=== PATIENT | female | born 1935 | race Caucasian/White ===

== ENCOUNTER 2016-12-25 14:16 | Emergency (ER) | payer MEDICARE, OTHER ==
[~2016-12-25] VITALS: Ht 167.6 cm; Wt 54.4 kg
[~2016-12-25 14:16] MED LIST: IPRA14.7 IH; LISI10TA5 PO; NITR0.4T6 SL; PRED10TA PO
[2016-12-25] MEDS ORDERED: ASPIRIN 325 MG TABLET ONE (14:47)
[2016-12-25] MEDS ORDERED: predniSONE 20 MG TABLET ONE (14:47)
[2016-12-25] MEDS ORDERED: predniSONE 20 MG TABLET PO ONE (15:00)
[2016-12-25] MEDS ORDERED: ASPIRIN 325 MG TABLET PO ONE (15:00)
[2016-12-25 15:02] LABS: BASOPHILS % (AUTO) 0.9 % (0.0-2.0); DIFF TOTAL % 100 %; EOSINOPHILS # (AUTO) 0.3 /CMM (0.0-0.7); EOSINOPHILS % (AUTO) 6.2 % (0.0-6.0); HEMATOCRIT 39 % (33-45); LYMPHOCYTES # (AUTO) 1.3 /CMM (0.8-4.8); LYMPHOCYTES % (AUTO) 25.4 % (20.0-44.0); MEAN CORPUSCULAR HEMOGLOBIN 30 PG (26.0-33.0); MEAN CORPUSCULAR HGB CONC 34 g/dl (31.0-36.0); MEAN CORPUSCULAR VOLUME 90 fL (82-100); MONOCYTES # (AUTO) 0.3 /CMM (0.1-1.30); MONOCYTES % (AUTO) 5.7 % (2.0-12.0); NEUTROPHILS # (AUTO) 3.3 /CMM (1.8-8.9); NEUTROPHILS % (AUTO) 61.8 % (43.0-81.0); PLATELET COUNT (AUTO) 210 /CMM (150-450); WHITE BLOOD COUNT (AUTO) 5.3 K/uL (4.3-11.0)
[2016-12-25 15:10] LABS: ANION GAP 9 (5-14); CALCIUM, SERUM 8.8 mg/dL (8.5-10.1); CARBON DIOXIDE 31 mmol/L (21-32); CHLORIDE 103 mmol/L (98-107); CREATININE 0.8 mg/dL (0.6-1.3); GLUCOSE 121 mg/dL (74-106); POTASSIUM 3.7 mmol/L (3.5-5.1); SODIUM SERUM 139 mmol/L (136-145); UREA NITROGEN, BLOOD 12 mg/dL (7-18)
[2016-12-25 15:17] LABS: TROPONIN I < 0.017 ng/mL (0.00-0.056)
[2016-12-25 15:35] LABS: INR 0.99 (0.87-1.13); PROTHROMBIN TIME 10.7 SECS (9.5-12.7)
[2016-12-25 15:57] VITALS: BP 151/78
== END 2016-12-25 15:59 | disposition home or self-care (01) ==
LOC: ER 14:18
DX: J44.1 Chronic obstructive pulmonary disease with (acute) exacerbation (principal); I10 Essential (primary) hypertension; Z88.2 Allergy status to sulfonamides; Z88.0 Allergy status to penicillin; Z88.8 Allergy status to other drugs, medicaments and biological substances
CPT/HCPCS: 36415; 71010; 80048; 84484; 85025; 85730; 93005; 99285; A4606; J7512; Z7610

== ENCOUNTER 2017-01-11 20:22 | Emergency (ER) | payer MEDICARE, OTHER ==
[~2017-01-11] VITALS: Ht 162.6 cm; Wt 63.5 kg
[2017-01-11 21:18] VITALS: BP 138/94
== END 2017-01-11 21:35 | disposition home or self-care (01) ==
LOC: ER 20:22
DX: S06.0X9A Concussion with loss of consciousness of unspecified duration, initial encounter (principal); I10 Essential (primary) hypertension; J44.9 Chronic obstructive pulmonary disease, unspecified; Z88.8 Allergy status to other drugs, medicaments and biological substances; Z88.2 Allergy status to sulfonamides; Z88.0 Allergy status to penicillin; Z88.6 Allergy status to analgesic agent; W22.8XXA Striking against or struck by other objects, initial encounter; Y93.89 Activity, other specified; Y92.090 Kitchen in other non-institutional residence as the place of occurrence of the external cause; Y99.9 Unspecified external cause status
CPT/HCPCS: 99281; A4606; Z7502; Z7610

== ENCOUNTER 2017-01-15 18:29 | Emergency (ER) | payer MEDICARE, OTHER ==
[~2017-01-15] VITALS: Ht 160 cm; Wt 63.5 kg
[2017-01-15 19:22] LABS: BASOPHILS % (AUTO) 0.5 % (0.0-2.0); DIFF TOTAL % 100 %; EOSINOPHILS # (AUTO) 0.4 /CMM (0.0-0.7); HEMATOCRIT 41 % (33-45); HEMOGLOBIN 13.7 g/dL (11.5-14.8); LYMPHOCYTES # (AUTO) 1.6 /CMM (0.8-4.8); LYMPHOCYTES % (AUTO) 28.5 % (20.0-44.0); MEAN CORPUSCULAR HEMOGLOBIN 30 PG (26.0-33.0); MEAN CORPUSCULAR HGB CONC 33 g/dl (31.0-36.0); MEAN CORPUSCULAR VOLUME 91 fL (82-100); MONOCYTES # (AUTO) 0.4 /CMM (0.1-1.30); MONOCYTES % (AUTO) 7.7 % (2.0-12.0); NEUTROPHILS # (AUTO) 3.1 /CMM (1.8-8.9); NEUTROPHILS % (AUTO) 55.3 % (43.0-81.0); PLATELET COUNT (AUTO) 199 /CMM (150-450); RED BLOOD CELL COUNT(AUTO) 4.55 MIL/uL (4.0-5.2); WHITE BLOOD COUNT (AUTO) 5.5 K/uL (4.3-11.0)
[2017-01-15 19:30] LABS: ANION GAP 12 (5-14); CARBON DIOXIDE 29 mmol/L (21-32); CHLORIDE 102 mmol/L (98-107); CREATININE 1.1 mg/dL (0.6-1.3); POTASSIUM 3.7 mmol/L (3.5-5.1); SODIUM SERUM 139 mmol/L (136-145); UREA NITROGEN, BLOOD 17 mg/dL (7-18)
[2017-01-15] MEDS ORDERED: ALBUTEROL FS 2.5 MG/0.5 ML VIAL.NEB NEB ONE (19:30)
[2017-01-15 19:34] LABS: INR 0.99 (0.87-1.13); PROTHROMBIN TIME 10.4 SECS (9.5-12.7)
[2017-01-15 19:38] LABS: TROPONIN I < 0.017 ng/mL (0.00-0.056)
[2017-01-15 19:42] LABS: ALANINE AMINOTRANSFERASE 24 U/L (12-78); ALBUMIN 3.8 g/dL (3.4-5.0); ASPARTATE AMINOTRANSFERASE 26 U/L (15-37); BILIRUBIN,DIRECT 0.1 mg/dL (0.0-0.2); BILIRUBIN,TOTAL 0.5 mg/dL (0.2-1.0); INDIRECT BILIRUBIN 0.4 mg/dL (0.0-1.1); TOTAL PROTEIN, SERUM 7.6 g/dL (6.4-8.2)
[2017-01-15 20:00] LABS: GLUCOSE 112 mg/dL (74-106)
[2017-01-15 21:52] VITALS: BP 116/68
== END 2017-01-15 21:52 | disposition home or self-care (01) ==
LOC: ER 18:32
DX: R07.89 Other chest pain (principal); J44.1 Chronic obstructive pulmonary disease with (acute) exacerbation; I10 Essential (primary) hypertension; Z88.0 Allergy status to penicillin; Z88.2 Allergy status to sulfonamides; Z88.8 Allergy status to other drugs, medicaments and biological substances
CPT/HCPCS: 36415; 71010; 80048; 80076; 83880; 84484; 85025; 85730; 93005; 94640; 99285; A4606; Z7610

== ENCOUNTER 2017-03-26 09:51 | Emergency (ER) | payer MEDICARE, OTHER ==
[~2017-03-26] VITALS: Ht 165.1 cm; Wt 62.6 kg
[2017-03-26 09:57] VITALS: BP 155/76
[2017-03-26 10:29] LABS: BILIRUBIN,URINE NEGATIVE (NEGATIVE); BLOOD, URINE 3+ Ery/uL (NEGATIVE); COLOR,URINE AMBER (YELLOW); KETONES,URINE 1+ (NEGATIVE); LEUKOCYTE ESTERASE ,URINE 2+ (NEGATIVE); NITRITE, URINE POSITIVE (NEGATIVE); PH,URINE 6.5 (5.0-8.0); PROTEIN,URINE 3+ mg/dl (NEGATIVE); UGLUCOSE NEGATIVE (NEGATIVE)
[2017-03-26 10:33] LABS: APPEARANCE,URINE CLOUDY (CLEAR)
[2017-03-26 10:36] LABS: ADD URINE CULTURE YES; BACTERIA,URINE Few /HPF (None Seen); RBC,URINE TOO NUMEROUS TO COUN /HPF (0-2); SQUAMOUS EPITHELIAL CELL,UR Rare /HPF (None Seen)
[2017-03-26 10:37] LABS: WBC,URINE 21-50 /HPF (0-3)
[2017-03-26] MEDS ORDERED: PHENAZOPYRIDINE HCL 200 MG TABLET ONE (10:51)
[2017-03-26] MEDS ORDERED: CIPROFLOXACIN HCL 500 MG TABLET ONE (10:51)
[2017-03-26] MEDS ORDERED: CIPROFLOXACIN HCL 250 MG TABLET PO ONE (11:00)
[2017-03-26] MEDS ORDERED: PHENAZOPYRIDINE HCL 200 MG TABLET PO ONE (11:00)
== END 2017-03-26 11:03 | disposition home or self-care (01) ==
LOC: ER 10:00
DX: N39.0 Urinary tract infection, site not specified (principal); J44.1 Chronic obstructive pulmonary disease with (acute) exacerbation; I10 Essential (primary) hypertension; Z90.49 Acquired absence of other specified parts of digestive tract; Z90.710 Acquired absence of both cervix and uterus; Z98.890 Other specified postprocedural states; Z88.2 Allergy status to sulfonamides; Z88.1 Allergy status to other antibiotic agents; Z88.0 Allergy status to penicillin; Z88.8 Allergy status to other drugs, medicaments and biological substances
CPT/HCPCS: 81000-TC; 87086-TC; A4606; Z7610

== ENCOUNTER 2018-09-18 19:21 | Emergency (ER) | payer MEDICARE, OTHER ==
[~2018-09-18] VITALS: Ht 162.6 cm; Wt 63.5 kg
[~2018-09-18 19:21] MED LIST changes: +NITR0.4T48 SL; -NITR0.4T6 SL
[2018-09-18 19:37] VITALS: BP 131/85
--- NOTE | 2018-09-18 21:37 | NUR ---
CALLED PT IN [place] TO BRING TO ROOM. NO ONE RESPONDED.
== END 2018-09-18 21:38 | disposition left against medical advice (07) ==
LOC: ER 19:23
DX: Z53.21 Procedure and treatment not carried out due to patient leaving prior to being seen by health care provider (principal); J44.9 Chronic obstructive pulmonary disease, unspecified; N39.0 Urinary tract infection, site not specified; I10 Essential (primary) hypertension; Z98.890 Other specified postprocedural states; Z90.49 Acquired absence of other specified parts of digestive tract; Z96.612 Presence of left artificial shoulder joint; Z90.710 Acquired absence of both cervix and uterus
CPT/HCPCS: A4606; Z7610

== ENCOUNTER 2019-02-05 22:55 | Inpatient (IN) | payer MEDICARE, OTHER ==
[~2019-02-05] VITALS: Ht 165.1 cm; Wt 92.7 kg
--- NOTE | 2019-02-05 23:05 | NUR ---
PT [id number] C/O "SEVERE RESP DISTRESS 60% RA, RECENT PNEUMONIA" CPAP, +SOB +ACUTE DISTRESS. PT AOX0. NAD NOTED. RESP EVEN AND UNLABORED. PT ON MONITOR IN BED 5. WILL CONTINUE TO MONITOR.
--- NOTE | 2019-02-05 23:09 | NUR ---
CALLED NURSING SHIP'S OFFICER FOR ICU BED
--- NOTE | 2019-02-05 23:10 | NUR ---
2310 CPR STARTED WITH CONTINUOUS BAGGING 2311 0.5MG ATROPINE GIVEN IV RAC 18G 2312 1MG EPINEPHRINE GIVEN IV RAC 18G 2312 HOLD COMPRESSIONS, CHECK PULSE, HR 55, BP 58/18 2312 RESUME CPR 2313 HOLD COMPRESSIONS, CHECK PULSE 2313 RESUME CPR 2314 SHOCK AT 120J BY DR OSORIO. CPR RESUMED 2314 HOLD COMPRESSIONS, CHECK PULSE 2315 PT IN A-FIB 2315 RESUME CPR 2316 1MG EPI AND 0.5MG ATROPINE GIVEN IV RAC 18G 2316 HOLD COMPRESSIONS, HR 106, BP 168/123, PT IN A-FIB. CODE ENDED.
[2019-02-05] MEDS ORDERED: DOPamine 400MG/D5W 250ML RTU 250 ML IV ONE (23:17)
[2019-02-05] MEDS ORDERED: PROPOFOL 100 ML IV ONE (23:20)
--- NOTE | 2019-02-05 23:22 | NUR ---
DOPAMINE DRIP AT 5MCG/KG PER MD ORDER.
[2019-02-05] MEDS ORDERED: DOPamine 400 MG/D5W 250 ML RTU PIGGYBACK IV ONE (23:30)
[2019-02-05] MEDS ORDERED: ETOMIDATE 2 MG/ML VIAL IV ONE (23:30)
[2019-02-05] MEDS ORDERED: SUCCINYLCHOLINE CHLORIDE 20 MG/ML VIAL IV ONE (23:30)
[2019-02-05] MEDS ORDERED: IV NS 0.9% 1,000 ML BAG IV ONE (23:30)
[2019-02-05] MEDS ORDERED: CEFTRIAXONE 1GM BAG (ER ONLY) 50 ML IV ONE ×2 (23:30→23:53)
[2019-02-05 23:32] VITALS: BP 114/75
--- NOTE | 2019-02-05 23:34 | NUR ---
RT CALLED TO PT BEDSIDE FOR INTUBATION. PT ARRIVED VIA FIRE RESCUE VENTILATED VIA AMBU BAG WITH DECREASED SPO2 READING. PT INTUBATED WITH 7.5 ETT AT 21CM AT THE LIP. PT PLACED ON VENT WITH SETTINGS CHARTED. PT BECAME PULSELESS AND CPR WITH AMBU BAG VENTILATION WAS INITIATED. PT PLACED BACK ON VENT WITH RETURN OF SPONTANEOUS CIRCULATION. ETT TUBE SECURE VIA ANCHORFAST. AIRWAY PATENT. PT UNRESPONSIVE. SUCTIONED A MODERATE AMOUNT OF THICK BORRERO SECRETIONS. AMBU BAG AT BEDSIDE ALARMS SET AND AUDIBLE. VENT PLUGGED INTO RED OUTLET. DISCONNECT ALARMS CHECKED. Addendum: 02/05/19 at 2341 by JOSH BEVERLY RT Amended: Links added.
--- NOTE | 2019-02-05 23:35 | NUR ---
DOPAMINE DRIP AT 10MCG/KG PER MD ORDER.
--- NOTE | 2019-02-05 23:36 | NUR ---
OG TUBE INSERTED.
--- NOTE | 2019-02-05 23:44 | NUR ---
2344 ATROPINE 1MG 2346 EPI 1.0 MG 2348 PACING 2350 LEVOPHED DRIP 15MCG/MIN 2351 PACING OFF 2352 EPI 1.0 MG 2355 ATROPINE 1MG
[2019-02-05] MEDS ORDERED: NOREPINEPHRINE 4 MG/4 ML AMPUL IV ONE (23:46)
[2019-02-05] MEDS ORDERED: ATROPINE SULFATE 1 MG/10 ML DISP.SYRIN ONE (23:57)
[2019-02-06] VITALS (97 sets, daily range): BP systolic 56–163; BP diastolic 35–119
[2019-02-06 00:11] LABS: ABG BASE EXCESS 2.9 mmol/L; ABG OXYGEN SATURATION 98.9 % (92.0-98.5); ABG PCO2 69.6 mmHg (35.0-45.0); ABG PH 7.266 (7.350-7.450); ABG PO2 370.2 mmHg (75.0-100.0); AaDO2 273.2 mmHg; COHb 0.3 % (0.5-1.5); MetHb 0.5 % (0.0-1.5); O2Hb 98.1 % (94.0-97.0); PEEP,BG 0 cm H2O; SITE, ABG Right Radial; VT, ABG 450 mL
[2019-02-06 00:17] LABS: APPEARANCE,URINE Clear (CLEAR); BILIRUBIN,URINE Negative (NEGATIVE); BLOOD, URINE Trace-intact Ery/uL (NEGATIVE); COLOR,URINE Yellow (YELLOW); KETONES,URINE Negative (NEGATIVE); LEUKOCYTE ESTERASE ,URINE Negative (NEGATIVE); NITRITE, URINE Negative (NEGATIVE); PROTEIN,URINE Trace mg/dl (NEGATIVE); UGLUCOSE Negative (NEGATIVE); UROBILINOGEN,URINE 0.2 EU/dL (0.2)
[2019-02-06 00:20] LABS: BASOPHILS # (AUTO) 0.4 /CMM (0.0-0.2); BASOPHILS % (AUTO) 2.7 % (0.0-2.0); EOSINOPHILS % (AUTO) 0.8 % (0.0-6.0); HEMATOCRIT 26 % (33-45); HEMOGLOBIN 8.4 g/dL (11.5-14.8); LYMPHOCYTES # (AUTO) 0.8 /CMM (0.8-4.8); LYMPHOCYTES % (AUTO) 5.9 % (20.0-44.0); MEAN CORPUSCULAR HGB CONC 32 g/dl (31.0-36.0); MEAN CORPUSCULAR VOLUME 94 fL (82-100); MONOCYTES # (AUTO) 0.5 /CMM (0.1-1.30); MONOCYTES % (AUTO) 3.4 % (2.0-12.0); NEUTROPHILS # (AUTO) 12.2 /CMM (1.8-8.9); NEUTROPHILS % (AUTO) 87.2 % (43.0-81.0); PLATELET COUNT (AUTO) 241 /CMM (150-450); RED BLOOD CELL COUNT(AUTO) 2.81 MIL/uL (4.0-5.2)
[2019-02-06 00:28] LABS: CALCIUM, SERUM 7.6 mg/dL (8.5-10.1); CARBON DIOXIDE 35 mmol/L (21-32); CHLORIDE 98 mmol/L (98-107); CREATININE 0.9 mg/dL (0.6-1.3); GLUCOSE 225 mg/dL (74-106); POTASSIUM 4.5 mmol/L (3.5-5.1); SODIUM SERUM 138 mmol/L (136-145); UREA NITROGEN, BLOOD 8 mg/dL (7-18)
[2019-02-06 00:44] LABS: BACTERIA,URINE Few /HPF (None Seen); RBC,URINE 0-2 /HPF (0-2); SQUAMOUS EPITHELIAL CELL,UR Few /HPF (None Seen)
--- NOTE | 2019-02-06 00:44 | NUR ---
LEVOPHED 30MCG PER MD ORDER
[2019-02-06 00:45] LABS: ALANINE AMINOTRANSFERASE 77 U/L (12-78); ALKALINE PHOSPHATASE 101 U/L (46-116); ASPARTATE AMINOTRANSFERASE 206 U/L (15-37); B-TYPE NATRIURETIC PEPTIDE 6354 PG/ML (0-125); BILIRUBIN,DIRECT 0.2 mg/dL (0.0-0.2); BILIRUBIN,TOTAL 0.3 mg/dL (0.2-1.0); TOTAL PROTEIN, SERUM 4.9 g/dL (6.4-8.2)
[2019-02-06 00:46] LABS: ALBUMIN 1.2 g/dL (3.4-5.0)
[2019-02-06] MEDS ORDERED: PHENYLEPHRINE 10 MG/ML VIAL ONE ×2 (00:50→02:30)
--- NOTE | 2019-02-06 01:00 | NUR ---
DOPAMINE DRIP AT 20MCG/KG PER MD ORDER.
--- NOTE | 2019-02-06 01:02 | NUR ---
VERBAL ORDER FROM DR OSORIO FOR NEOSYNEPHRINE DRIP STARTED AT 300MCG/MIN. TITRATE DOWN TOLERATED.
--- NOTE | 2019-02-06 01:04 | NUR ---
DR. OSORIO AT BEDSIDE FOR CENTRAL LINE
--- NOTE | 2019-02-06 01:15 | NUR ---
REPORT GIVEN TO CHARLES RN FOR ADMISSION
[2019-02-06] MEDS ORDERED: ONDANSETRON HCL/PF 4 MG/2 ML VIAL IVP PRN (01:30)
[2019-02-06] MEDS ORDERED: ZOLPIDEM TARTRATE 5 MG TABLET PO PRN (01:30)
[2019-02-06] MEDS ORDERED: IPRATROPIUM NEB FS 0.5 MG/2.5 ML AMPUL.NEB NEB PRN (01:30)
[2019-02-06] MEDS ORDERED: ALBUTEROL FS 2.5 MG/0.5 ML VIAL.NEB NEB PRN (01:30)
[2019-02-06] MEDS ORDERED: VANCOMYCIN 1 GM in IV NS 0.9% 250 ML IV SCH ×2 (01:30→02:00)
[2019-02-06] MEDS ORDERED: LEVOFLOXACIN 750 MG /D5W 150ML 750 MG in PREMIX 1 EA IV SCH (01:30)
[2019-02-06] MEDS ORDERED: methylPREDNISolone SOD SUCC 125 MG/2ML VIAL IV SCH (01:30)
[2019-02-06] MEDS ORDERED: PHENYLEPHRINE 20 MG in IV D5W 250 ML IV PRN ×3 (01:30→02:30)
[2019-02-06] MEDS ORDERED: ACETAMINOPHEN 325 MG TABLET PO PRN (01:30)
[2019-02-06] MEDS ORDERED: VASOPRESSIN INJ 50 UNIT in IV D5W 497.5 ML IV PRN (01:30)
[2019-02-06] MEDS ORDERED: MAGNESIUM HYDROXIDE 30 ML UDC PO PRN (01:30)
--- NOTE | 2019-02-06 01:35 | NUR ---
MARKET RESEARCHERBODY COMPONENT ENGINEER NOTES RECEIVED PATIENT FROM ER VIA [facility]. PATIENT INTUBATED, ON VENTILATOR, SETTINGS: AC 24, TV 450, FIO2 100%, NO PEEP. DIFFICULT TO OBTAIN SPO2 DUE TO POOR PERFUSION, WARM BLANKET APPLIED TO SITE WHERE PULSE OX IS CONNECTED. PROFESSIONAL WRESTLER READS SINUS TACHYCARDIA, HR = 120 BPM AT THIS TIME. RIGHT FEMORAL TLC PRESENT, INFUSING LEVOPHED @ 40MCG/MIN, NEOSYNEPHRINE @ 300 MCG/MIN, AND DOPAMINE @ 20 MCG. WILL TITRATE ABLE. FLORES CATHETER DRAINING CLEAR YELLOW URINE VIA GRAVITY. ALL SKIN ISSUES PHOTOGRAPHED AND DOCUMENTED PER PROTOCOL. WILL CONTINUE CLOSE MONITORING
[2019-02-06] MEDS: BLOOD SUGAR DIAGNOSTIC 1 EACH STRIP IN SCH ×6 (01:52→20:37)
[2019-02-06] MEDS: IV NS 0.9% 1,000 ML IV PRN ×2 (02:01→13:28)
--- NOTE | 2019-02-06 02:30 | NUR ---
SYSTEM SUPPORT TECHNICIAN NOTES 0230 RECEIVED CALL FROM RADIOLOGIST DR RAMOS REGARDING FINDINGS ON CXR. PER DR RAMOS, NEW LEFT TENSION PNEUMOTHORAX 20-30%. MIGUE LABORER STORES. PER MIGUE, PREPARE FOR CHEST TUBE INSERTION BY ER , DR OSORIO. 0250 DR OSORIO AT BEDSIDE FOR CHEST TUBE INSERTION. LEFT ANTERIOR CHEST WALL CHEST TUBE INSERTED BY , STAT CXR OBTAINED, AWAITING RESULT. CHEST TUBE CONNECTED TO CONTINUOUS -20CM H20 SUCTION, WITH SEROSANGUINOUS OUTPUT.
[2019-02-06] MEDS ORDERED: ALBUMIN 25% 100 ML IV ONE ×2 (02:31→04:59)
[2019-02-06] MEDS ORDERED: VANCOMYCIN 1 GM VIAL ONE (02:33)
[2019-02-06 02:35] LABS: ABG BASE EXCESS 4.8 mmol/L; ABG OXYGEN SATURATION 96.5 % (92.0-98.5); ABG PCO2 51.3 mmHg (35.0-45.0); ABG PH 7.393 (7.350-7.450); ABG PO2 100.5 mmHg (75.0-100.0); AaDO2 561.2 mmHg; COHb 0.3 % (0.5-1.5); MetHb 0.5 % (0.0-1.5); O2Hb 95.7 % (94.0-97.0); SITE, ABG Right Radial
[2019-02-06] MEDS ORDERED: METRONIDAZOLE 500MG/ NS 100ML 100 ML IV ONE (02:35)
--- NOTE | 2019-02-06 02:36 | NUR ---
ABG DONE. NOTIFIED CHARLES RN WITH THE RESULT.
[2019-02-06] MEDS: METRONIDAZOLE 500MG/ NS 100ML 500 MG in PREMIX 1 EA IV SCH ×5 (02:47→20:37)
[2019-02-06] MEDS ORDERED: LIDOCAINE 100MG/5ML DISP SYR ONE (02:58)
[2019-02-06] MEDS ORDERED: LIDOCAINE 2%-EPI 1:100,000 30 ML VIAL ONE (02:58)
--- NOTE | 2019-02-06 03:15 | NUR ---
ETHICS MANAGER NOTES - DOPAMINE DRIP UNABLE TO CHART DOPAMINE IN IV SPREADSHEET. TITRATED DOWN EVERY 15 MINUTES BY 5MCG UNTIL TITRATED OFF @ 0315. BP 149/84. HR 105
[2019-02-06] MEDS: NOREPINEPHRINE 8 MG in IV D5W 500 ML IV PRN (03:16)
--- NOTE | 2019-02-06 03:30 | NUR ---
NEONATAL INTENSIVE CARE UNIT NURSE NOTES - NEOSYNEPHRINE DRIP UNABLE TO CHART NEOSYNEPHRINE DRIP IN IV SPREADSHEET. TITRATED DOWN EVERY 15 MINUTES BY 50MCG UNTIL TITRATED OFF @ 0330. BP 127/81, HR 88BPM
[2019-02-06] MEDS: ALBUMIN 25% 25 GM in PREMIX 1 EA IV SCH ×3 (03:50→10:42)
[2019-02-06] MEDS ORDERED: NOREPINEPHRINE 4 MG/4 ML AMPUL IV ONE (04:12)
--- NOTE | 2019-02-06 04:36 | NUR ---
TROLLEY CLEANER NOTES FLAGYL IV FOR 0500 NON-ADMINISTERED, LAST GIVEN @ 0247. CALLED PHARMACY, RECEIVED INSTRUCTION TO NON ADMINISTER NEXT DOSE DUE TO CLOSE PROXIMITY ADMINISTRATION TIME WILL DEFAULT BACK TO EXISTING SCHEDULED ADMINISTRATION TIME
[2019-02-06] MEDS: INSULIN REGULAR, HUMAN 100 UNIT/ML 3 ML VIAL SQ PRN ×4 (05:04→17:41)
[2019-02-06 05:14] LABS: BASOPHILS % (AUTO) 0.1 % (0.0-2.0); HEMATOCRIT 28 % (33-45); HEMOGLOBIN 9.1 g/dL (11.5-14.8); LYMPHOCYTES # (AUTO) 0.2 /CMM (0.8-4.8); LYMPHOCYTES % (AUTO) 1.5 % (20.0-44.0); MEAN CORPUSCULAR HGB CONC 33 g/dl (31.0-36.0); MEAN CORPUSCULAR VOLUME 92 fL (82-100); MONOCYTES # (AUTO) 0.8 /CMM (0.1-1.30); MONOCYTES % (AUTO) 5.6 % (2.0-12.0); NEUTROPHILS % (AUTO) 92.8 % (43.0-81.0); PLATELET COUNT (AUTO) 310 /CMM (150-450); RED BLOOD CELL COUNT(AUTO) 3.05 MIL/uL (4.0-5.2); WHITE BLOOD COUNT (AUTO) 15.1 K/uL (4.3-11.0)
[2019-02-06 05:18] LABS: CHOLESTEROL 75 mg/dL (<200); HDL CHOLESTEROL 29 mg/dL (40-60); LDL 40 mg/dL (0-99); TRIGLYCERIDES 70 mg/dL (30-150)
[2019-02-06 05:19] LABS: CALCIUM, SERUM 7.9 mg/dL (8.5-10.1); GLUCOSE 253 mg/dL (74-106); MAGNESIUM 1.4 mg/dL (1.8-2.4); PHOSPHORUS 3.7 mg/dL (2.5-4.9); UREA NITROGEN, BLOOD 11 mg/dL (7-18)
[2019-02-06 05:25] LABS: CARBON DIOXIDE 34 mmol/L (21-32); CHLORIDE 93 mmol/L (98-107); POTASSIUM 5.3 mmol/L (3.5-5.1); SODIUM SERUM 134 mmol/L (136-145)
[2019-02-06] MEDS ORDERED: PIPERACILLIN /TAZOBACTAM 3.375 G in IV D5W 50 ML IV SCH (06:00)
--- NOTE | 2019-02-06 07:00 | NUR ---
CHOIRMASTER NOTES PATIENT RESTING IN BED, NO FACIAL GRIMACE NOTED, REACTIVE TO PAINFUL STIMULI. CONTINUES ON LEVOPHED DRIP, CURRENTLY AT 14 MCG/MIN, NEOSYNEPHRINE AND DOPAMINE DRIPS TITRATED OFF SINCE 329. LEFT CHEST TUBE PATENT AND INTACT @ -20CM H20 SUCTION, TOTAL OF 300ML SEROSANGUINOUS FLUID OUTPUT. 0600 DOSE OF ALBUMIN NOT YET ADMINISTERED DUE TO NO SUPPLY. WILL CALL PHARMACY TO DELIVER. WILL ENDORSE CARE TO THE DAY SHIFT NURSE FOR CONTINUITY OF CARE
[2019-02-06] MEDS ORDERED: FEE PK DOSING 1 MIN EA MC ONE (07:43)
--- NOTE | 2019-02-06 08:00 | NUR ---
Pt seen & examined by Dr. Coyle w/ orders made & carried out.
[2019-02-06] MEDS ORDERED: ATROPINE SULFATE 1 MG/10 ML DISP.SYRIN IV ONE ×2 (08:06→08:10)
[2019-02-06] MEDS ORDERED: SUCCINYLCHOLINE CHLORIDE 20 MG/ML VIAL IV ONE (08:06)
[2019-02-06] MEDS ORDERED: SODIUM BICARBONATE SYR 50 MEQ/50 ML DISP.SYRIN IV ONE (08:10)
[2019-02-06] MEDS ORDERED: EPINEPHRINE (1:10,000) SYRINGE 1 MG/10 ML DISP.SYRIN IVP ONE (08:10)
--- NOTE | 2019-02-06 09:15 | NUR ---
Pt seen & examined by Dr. Clarke w/ orders made & carried out. 1005H ABG seen by w/ orders for vent changes RR 12, TV 450, FiO2 50%
[2019-02-06 09:23] LABS: THYROID STIMULATING HORMONE 4.273 uIU/mL (0.358-3.74)
[2019-02-06] MEDS ORDERED: ALBUTEROL HALF STRENGTH 1.25 MG/3 ML VIAL.NEB NEB PRN ×2 (10:00→14:00)
[2019-02-06 10:03] LABS: ABG OXYGEN SATURATION 99.1 % (92.0-98.5); ABG PCO2 28.8 mmHg (35.0-45.0); ABG PH 7.688 (7.350-7.450); ABG PO2 231.2 mmHg (75.0-100.0); COHb 0.3 % (0.5-1.5); MetHb 0.4 % (0.0-1.5); O2Hb 98.4 % (94.0-97.0); SITE, ABG Right Radial; VT, ABG 450 mL
[2019-02-06] MEDS: HYDROCORTISONE SOD SUCCINATE 100 MG/2 ML VIAL IV SCH ×3 (10:09→17:35)
[2019-02-06] MEDS: Magnesium 1GM/D5W 100ML PREMIX 100 ML IV SCH ×2 (10:09→11:23)
--- NOTE | 2019-02-06 10:16 | NUR ---
PINK ALERTS ON EMAR REMOVED FOR PT'S SAFETY. MEDS NON ADMINISTERED.
[2019-02-06] MEDS: CEFEPIME 2 GM in IV D5W 100 ML IV SCH ×2 (10:42→22:05)
--- NOTE | 2019-02-06 11:25 | NUR ---
Pt seen & examined by Dr. Griffin w/ orders to start pt on Lovenox 40 mg SQ daily.
--- NOTE | 2019-02-06 12:00 | NUR ---
1200H Pt seen & examined by Dr. Cade.
[2019-02-06] MEDS: ENOXAPARIN SODIUM 40 MG/0.4 ML DISP.SYRIN SQ SCH (13:20)
[2019-02-06] MEDS: FLUDROCORTISONE 0.1 MG TABLET NG SCH ×3 (13:20→23:45)
[2019-02-06] MEDS: IPRATROPIUM NEB FS 0.5 MG/2.5 ML AMPUL.NEB NEB SCH ×4 (13:53→23:48)
--- NOTE | 2019-02-06 19:00 | NUR ---
RN CLOSING NOTES: No significant changes noted w/in shift - pt is A/O x 1. Pt tolerated current MV settings via ETT, sating at 98%. On telemonitor, remains SR. IV line access kept patent & intact w/ NS 150 cc/hr infusing well. Pt off pressors. OGT kept patent & intact, kept NPO except meds. FC kept patent & intact draining to BSB w/ yellowish UOP. Kept on B soft wrist restraints for pt's safety. L CT in place, level 480mL, no bubbling noted w/in shift, serosanguineous output (per Dr. Clarke to continue scheduled Lovenox). Safety precautions kept in place at all times w/ bed in lowest & locked position. Endorsed to PM RN for SHRUTHI. Faxed request to obtain medical records from [facility] as ordered.
[2019-02-06] MEDS: VANCOMYCIN 1 GM in IV D5W 250 ML IV SCH (19:48)
--- NOTE | 2019-02-06 20:00 | NUR ---
HOSE SUSPENDER CUTTER - NOTES - PATIENT AWAKE ALERT FOLLOWING COMMANDS. LEFT CHEST TUBE PATENT AND INTACT @ -20CM H20 SUCTION, SEROSANGUINEOUS FLUID OUTPUT. WILL ENDORSE CARE TO THE DAY SHIFT NURSE FOR CONTINUITY OF CARE
--- NOTE | 2019-02-06 20:19 | NUR ---
RECEIVED PT ORALLY INTUBATED ON VENT. 7.5 ETT SECURED AT 21CM AT THE LIP. PT IS AWAKE, NO DISTRESS AND TOLERATING VENT SETTINGS. SX'D FOR SML AMT OF THIN PALE SECRETIONS. VENT ALARMS SET AND AUDIBLE. AMBU BAG AT BEDSIDE. WILL CONTINUE TO MONITOR. Addendum: 02/06/19 at 2020 by NIURKA GUERRERO RT Amended: Links added.
[2019-02-07] VITALS (78 sets, daily range): BP systolic 102–173; BP diastolic 57–107
[2019-02-07] MEDS: BLOOD SUGAR DIAGNOSTIC 1 EACH STRIP IN SCH ×6 (01:21→21:28)
[2019-02-07] MEDS: INSULIN REGULAR, HUMAN 100 UNIT/ML 3 ML VIAL SQ PRN (01:23)
[2019-02-07] MEDS: IV NS 0.9% 1,000 ML IV PRN ×3 (03:13→17:46)
[2019-02-07] MEDS: HYDROCODONE/APAP 5/325MG 1 EACH TABLET PO PRN (03:13)
[2019-02-07] MEDS: IPRATROPIUM NEB FS 0.5 MG/2.5 ML AMPUL.NEB NEB SCH ×6 (03:17→22:42)
[2019-02-07 04:43] LABS: BASOPHILS % (AUTO) 0.2 % (0.0-2.0); HEMATOCRIT 21 % (33-45); HEMOGLOBIN 7.2 g/dL (11.5-14.8); LYMPHOCYTES # (AUTO) 0.4 /CMM (0.8-4.8); LYMPHOCYTES % (AUTO) 3.1 % (20.0-44.0); MEAN CORPUSCULAR HGB CONC 34 g/dl (31.0-36.0); MEAN CORPUSCULAR VOLUME 89 fL (82-100); MONOCYTES # (AUTO) 0.6 /CMM (0.1-1.30); MONOCYTES % (AUTO) 4.4 % (2.0-12.0); NEUTROPHILS # (AUTO) 11.9 /CMM (1.8-8.9); NEUTROPHILS % (AUTO) 92.3 % (43.0-81.0); PLATELET COUNT (AUTO) 216 /CMM (150-450); RED BLOOD CELL COUNT(AUTO) 2.36 MIL/uL (4.0-5.2); WHITE BLOOD COUNT (AUTO) 12.9 K/uL (4.3-11.0)
[2019-02-07 05:00] LABS: ALANINE AMINOTRANSFERASE 174 U/L (12-78); ALBUMIN 2.2 g/dL (3.4-5.0); ALKALINE PHOSPHATASE 74 U/L (46-116); ASPARTATE AMINOTRANSFERASE 277 U/L (15-37); BILIRUBIN,TOTAL 0.4 mg/dL (0.2-1.0); CARBON DIOXIDE 35 mmol/L (21-32); CHLORIDE 96 mmol/L (98-107); CREATININE 0.8 mg/dL (0.6-1.3); GLUCOSE 105 mg/dL (74-106); MAGNESIUM 1.9 mg/dL (1.8-2.4); POTASSIUM 3.5 mmol/L (3.5-5.1); SODIUM SERUM 137 mmol/L (136-145); TOTAL PROTEIN, SERUM 5.3 g/dL (6.4-8.2); UREA NITROGEN, BLOOD 12 mg/dL (7-18)
[2019-02-07] MEDS: METRONIDAZOLE 500MG/ NS 100ML 500 MG in PREMIX 1 EA IV SCH ×3 (05:09→21:22)
[2019-02-07] MEDS: FLUDROCORTISONE 0.1 MG TABLET NG SCH (05:26)
[2019-02-07] MEDS ORDERED: LORAZEPAM INJ 2 MG/ML VIAL IV ONE ×2 (06:00→07:45)
--- NOTE | 2019-02-07 07:00 | NUR ---
RN NOTES RECEIVED PT ON BED, ORALLY INTUBATED ON VENT. 7.5 ETT SECURED AT 21CM AT THE LIP. PT IS ALERT/ FOLLOWS SIMPLE COMMAND, ON TELE SR HR IN 70'S , OGT INTACT AND CLAMPED, FLORES DRINING TO GRAVITY , R FEMORAL TLC AND R UPPER ARM PICC LINE SITE CLEAN, DRY AND INTACT WITH NS AT 150CC/HR RUNNING , LEFT CHEST TUBE INTACT AND DRAINING TO GRAVITY, SR UP x3, CALL LIGHT WITHIN EASY REACH, BED LOCKED AND IN LOWEST POSITION , CONTINUE TO MONITOR .
[2019-02-07] MEDS ORDERED: HYDROGEL DRESSING 90 GM TUBE TP PRN (07:30)
[2019-02-07] MEDS ORDERED: DC PROPOFOL WHEN EXTUBATED XX PRN (08:00)
--- NOTE | 2019-02-07 08:10 | NUR ---
WOUND CARE CONSULT WOUND CARE RECEIVED CONSULT FOR MULTIPLE WOUNDS. WOUND CARE WILL DEFER CONSULT AND ALL TREATMENT PLANS TO PLASTIC SURGICAL TEAM WHO ARE CURRENTLY FOLLOWING THIS PATIENT. PATIENT WITH ANDRA AT 9, ALL PRESSURE ULCER PREVENTION MEASURES ARE NOTED TO BE IN PLACE AT THIS TIME. WILL SEE PRN.
[2019-02-07] MEDS: NYSTATIN TOP POWDER 15 GM BOTTLE TP SCH (08:39)
[2019-02-07] MEDS: Z GUARD REMEDY 2 OZ OINT TP PRN (08:39)
[2019-02-07] MEDS: HYDROGEL DRESSING 90 GM TUBE TP SCH (08:40)
[2019-02-07] MEDS: ENOXAPARIN SODIUM 40 MG/0.4 ML DISP.SYRIN SQ SCH (08:41)
[2019-02-07] MEDS: Z GUARD REMEDY 2 OZ OINT TP SCH (08:43)
--- NOTE | 2019-02-07 09:16 | NUR ---
SPOKE WITH RN. PT TO BE EXTUBATED PRIOR TO CT CHEST. RN WILL CALL BACK WHEN PT READY.
[2019-02-07] MEDS: CEFEPIME 2 GM in IV D5W 100 ML IV SCH ×2 (09:23→22:23)
--- NOTE | 2019-02-07 09:30 | NUR ---
PER DR ELLIS PATIENT WAS WEANING AND EXTUBATED. PLACED ON 2L N/C REYES WELL. RN AWARE
--- NOTE | 2019-02-07 09:30 | NUR ---
RN NOTES PT EXTUBATED, TOLERATED WELL, O2 SAT 98% ON 3L O2 N/C , CONTINUE TO MONITOR.
[2019-02-07] MEDS ORDERED: LEVA0.6320 IH (10:54)
[2019-02-07] MEDS ORDERED: METO25TA6 PO (10:54)
[2019-02-07] MEDS ORDERED: CALC-494 PO (11:19)
[2019-02-07] MEDS ORDERED: HYDR-4384 PO (11:19)
[2019-02-07] MEDS ORDERED: ZINC220C6 PO (11:19)
[2019-02-07] MEDS ORDERED: PHEN180S MM (11:19)
[2019-02-07] MEDS ORDERED: ASCO-340 PO (11:19)
[2019-02-07] MEDS ORDERED: MAGN400O6 PO (11:19)
[2019-02-07] MEDS ORDERED: MULT-213 PO (11:19)
[2019-02-07] MEDS ORDERED: BISA10SU61 RC (11:19)
[2019-02-07] MEDS ORDERED: ACET325T53 PO (11:19)
[2019-02-07] MEDS ORDERED: NA P133E RC (11:19)
[2019-02-07] MEDS ORDERED: CHLO473M5 MM (11:19)
[2019-02-07] MEDS ORDERED: POTA20TA83 PO (11:19)
[2019-02-07] MEDS: VANCOMYCIN 1 GM in IV D5W 250 ML IV SCH (14:01)
--- NOTE | 2019-02-07 15:31 | NUR ---
RN NOTES SPOKEN TO PT'S SON SANDEEP LEYVA ON THE PHONE AND HE STATED THAT HE WANTS HIS MOTHER TO HAVE CPR AND BE INTUBATED IN CASE SHE START DESATURATING AND UNABLE TO BREATH. FULL CODE STATUS EXPLAINED TO SON AND HE VERBALIZED UNDERSTANDING AND WANTS TO KEEP HIS MOTHER ON FULL CODE STAUS AT THIS TIME .
--- NOTE | 2019-02-07 15:56 | NUR ---
RN NOTES O2 SAT IN LOW 80'S , ORAL AND NT SUCTIONING DONE, DR ELLIS NOTIFED , PT PLACED ON AVAPS 11/04 . O2 SAT WENT UP TO 92% , CONTINUE TO MONITOR.
--- NOTE | 2019-02-07 16:00 | NUR ---
RN NOTES PT PLACE ON BIPAP PER MD ORDER, ORDER RECEIVED FOR ABG FROM PELEG . CONTINUE TO MONITOR.
[2019-02-07] MEDS: MORPHINE SULFATE INJ 2 MG/ML DISP.SYRIN IV PRN (16:17)
[2019-02-07 17:30] LABS: ABG BASE EXCESS 7.7 mmol/L; ABG OXYGEN SATURATION 98.3 % (92.0-98.5); ABG PCO2 50.4 mmHg (35.0-45.0); ABG PH 7.433 (7.350-7.450); ABG PO2 149.5 mmHg (75.0-100.0); AaDO2 222.9 mmHg; COHb 0.3 % (0.5-1.5); SITE, ABG Right Radial; VENT MODE, BG BIPAP 20/10 R12 60%
--- NOTE | 2019-02-07 17:30 | NUR ---
RN NOTES DR ELLIS NOTIFED REGARDING ABG RESULTS. CONTINUE TO MONITOR
--- NOTE | 2019-02-07 17:40 | NUR ---
RN NOTES PT TRIES TO PULL ON HER BIPAP AND IV LINES , OTIS SOFT WRIST PROTECTIVE DEVICES PLACE ON FOR PT SAFETY AND PER MD ORDER .
--- NOTE | 2019-02-07 18:36 | NUR ---
RN NOTES RIGHT FEMORAL TLC DISCONTINUED PER DR FISHER ORDER ,PRESSURE DRESSING APPLIED TO THE SITE , PT IS ALERT, ON BIPAP AT THIS TIME O2 SAT 91% , ST ON TELE , HR IN 110'S , FLORES DRINING TO GRAVITY, NS AT 150CC/HR RUNNING VIA R EJ IV LINE , WILL ENDORSE TO PARTITION ASSEMBLY MACHINE OPERATOR NURSE FOR CONTINUITY OF CARE .
--- NOTE | 2019-02-07 19:37 | NUR ---
RCVD PT ON BIPAP 20/10, RATE 12, FIO2 60%. Q4 BREATHING TX GIVEN, NO ADVERSE REACTION NOTED. BIPAP PLUGGED INTO RED OUTLET, ALARMS SET AND AUDIBLE. AMBU BAG AT BEDSIDE. WILL CONTINUE TO MONITOR THE PT .
--- NOTE | 2019-02-07 20:45 | NUR ---
LABORER TANBARK: FAMILY AT BEDSIDE AND PT WAS GETTING AGITATED AND RESTLESS. WANTED TO BE OFF BIPAP. PLACED ON 10L 02 VIA SIMPLE MASK. NO ACUTE DISTRESS. 02 SAT BET. 90-93%. HOB ON HIGH FOWLERS. WILL CONTINUE TO MONITOR.
[2019-02-08] VITALS (36 sets, daily range): BP systolic 100–153; BP diastolic 53–114
--- NOTE | 2019-02-08 00:30 | NUR ---
METAL COATER: PLACED BACK ON BIPAP SETTINGS ORDERED PT WAS DESATURATING IN THE LOW 80s. WT RESTLESSNESS NOTED, BILAT. SOFT WRIST RESTRAINTS PUT BACK. SKIN AND CIRCULATION WNL. 02 SAT IMPROVED WHEN PLACED ON BIPAP. WILL CONTINUE TO MONITOR.
[2019-02-08] MEDS: IV NS 0.9% 1,000 ML IV PRN ×2 (00:35→06:52)
[2019-02-08] MEDS: BLOOD SUGAR DIAGNOSTIC 1 EACH STRIP IN SCH ×6 (01:39→21:17)
[2019-02-08] MEDS: IPRATROPIUM NEB FS 0.5 MG/2.5 ML AMPUL.NEB NEB SCH ×6 (03:22→23:56)
--- NOTE | 2019-02-08 04:00 | NUR ---
LABORER CEMENT GUN PLACING: PLACED ON FI02 100% DUE TO DESATURATION. PT ALSO NOTED WT PAROXYSMAL A. FIB SINCE 12 MIDNIGHT. REMAINS ALERT AND AWAKE. ABLE TO MOUTH WORDS AND FOLLOW SIMPLE COMMANDS. WILL CONTINUE TO MONITOR.
[2019-02-08 04:44] LABS: BASOPHILS % (AUTO) 0.1 % (0.0-2.0); EOSINOPHILS % (AUTO) 0.2 % (0.0-6.0); HEMATOCRIT 23 % (33-45); HEMOGLOBIN 7.9 g/dL (11.5-14.8); LYMPHOCYTES # (AUTO) 0.4 /CMM (0.8-4.8); LYMPHOCYTES % (AUTO) 3.6 % (20.0-44.0); MEAN CORPUSCULAR HGB CONC 34 g/dl (31.0-36.0); MEAN CORPUSCULAR VOLUME 91 fL (82-100); MONOCYTES # (AUTO) 0.7 /CMM (0.1-1.30); MONOCYTES % (AUTO) 5.9 % (2.0-12.0); NEUTROPHILS # (AUTO) 10.7 /CMM (1.8-8.9); NEUTROPHILS % (AUTO) 90.2 % (43.0-81.0); PLATELET COUNT (AUTO) 255 /CMM (150-450); RED BLOOD CELL COUNT(AUTO) 2.57 MIL/uL (4.0-5.2); WHITE BLOOD COUNT (AUTO) 11.9 K/uL (4.3-11.0)
[2019-02-08 04:58] LABS: CARBON DIOXIDE 35 mmol/L (21-32); CHLORIDE 101 mmol/L (98-107); CREATININE 0.8 mg/dL (0.6-1.3); GLUCOSE 92 mg/dL (74-106); SODIUM SERUM 142 mmol/L (136-145); UREA NITROGEN, BLOOD 11 mg/dL (7-18)
[2019-02-08] MEDS: METRONIDAZOLE 500MG/ NS 100ML 500 MG in PREMIX 1 EA IV SCH ×3 (05:44→21:10)
--- NOTE | 2019-02-08 06:45 | NUR ---
RENAL DIALYSIS TECHNICIAN: PT TOLERATING BIPAP AT THIS TIME, NO RESTLESSNESS. ABLE TO MAKE NEEDS KNOWN BY MOUTHING OF WORDS AND HAND GESTURES. SINUS RHYTHM ON BLUE LEATHER SETTER. BILAT. SOFT WRIST RESTRAINTS DISCONTINUED PT IS COOPERATIVE WT CARE. ALL NEEDS MET. WILL ENDORSE TO DAY SHIFT FOR CONTINUITY OF CARE.
--- NOTE | 2019-02-08 07:00 | NUR ---
ANODIZING LINE OPERATOR: FI02 DECREASED BACK TO 60%. ENDORSED TO DAY SHIFT RN THAT SON WANTS TO DISCUSS POC WT .
--- NOTE | 2019-02-08 07:15 | NUR ---
CONCRETE RUBBER: DR. REES MADE AWARE THAT PT HAD EPISODE OF PAROXYSMAL A. FIB DURING THE SHIFT. NO NEW ORDER AT THIS TIME.
--- NOTE | 2019-02-08 07:20 | NUR ---
PATROL GUARD INITIAL NOTES RECEIVED PT FROM NIGHTSHIFT RN IN STABLE CONDITION. PT IS A/O X 2-3 WITH PERIODS OF FORGETFULNESS. NO SOB OR ACUTE SIGNS OF DISTRESS NOTED. BREATHING IS EVEN AND UNLABORED. PT PLACED ON 4L VIA NC AND SATING WELL. PERIPHERAL IV AND CENTRAL LINE NOTED TO BE PATENT AND INTACT. NO REDNESS OR SIGNS OF INFILTRATION NOTED. CHEST TUBE TO LEFT UPPER CHEST NOTED TO BE C/D/I AND DRAINING SEROSANGUINEOUS FLUID. F/C NOTED TO BE INTACT AND DRAINING TO GRAVITY. BED IN LOW LOCKED POSITION, SIDE RAILS UP X2, JARRED LIGHT WITHIN REACH. WILL CONTINUE TO MONITOR
--- NOTE | 2019-02-08 08:10 | NUR ---
RT NOTE RECEIVED PT ON BIPAP, PLACED PT ON NASAL CANNULA TO EAT, REYES WELL SO FAR SP02 96%, TXS REYES WELL, WILL MONITOR CLOSELY
[2019-02-08] MEDS: POTASSIUM CL. PREMIX PERIPHER. 50 ML IV SCH ×4 (08:19→11:15)
[2019-02-08] MEDS: VANCOMYCIN 1 GM in IV D5W 250 ML IV SCH (08:19)
[2019-02-08] MEDS: Z GUARD REMEDY 2 OZ OINT TP SCH (08:21)
[2019-02-08] MEDS: NYSTATIN TOP POWDER 15 GM BOTTLE TP SCH (08:22)
[2019-02-08] MEDS: HYDROGEL DRESSING 90 GM TUBE TP SCH (08:24)
[2019-02-08] MEDS: CEFEPIME 2 GM in IV D5W 100 ML IV SCH ×2 (09:59→22:32)
[2019-02-08] MEDS: ACETYLCYSTEINE 10% SOLN 400 MG/4 ML VIAL NEB SCH ×3 (11:06→23:56)
[2019-02-08 11:41] LABS: ABG BASE EXCESS 5.4 mmol/L; ABG OXYGEN SATURATION 85.8 % (92.0-98.5); ABG PCO2 57.6 mmHg (35.0-45.0); ABG PO2 56.2 mmHg (75.0-100.0); AaDO2 162.8 mmHg; COHb 0.3 % (0.5-1.5); MetHb 1.1 % (0.0-1.5); O2Hb 84.6 % (94.0-97.0); SITE, ABG Left Radial; VENT MODE, BG N/C 5LPM
--- NOTE | 2019-02-08 19:05 | NUR ---
CATH LAB TECHNOLOGIST CLOSING NOTES PT REMAIN STABLE. PT PLACED BACK ON BIPAP WITH PREVIOUS SETTINGS DUE TO DESATURATION IN THE LOW 80S WHILE ON NC. PT CURRENTLY SATING WELL AT 100%. NO SOB NOTED TA THIS TIME. INVASIVE LINES REMAIN PATENT AND INTACT. PRN CARE AND WOUND CARE RENDERED. PT REPOSITIONED AND TURNED PER HOSPITAL PROTOCOL. SAFETY MEASURES REMAIN IN PLACE. ENDORSED TO NIGHTSHIFT RN FOR SHRUTHI
--- NOTE | 2019-02-08 21:20 | NUR ---
USER INTERFACE DESIGNER: BLOOD SUGAR CHECKED WT RESULT OF 75. PT TAKEN OFF FROM BIPAP FOR A FEW MINUTES AND PLACED ON SIMPLE MASK AT 10L 02 VIA NC AND GIVEN SOME CRANBERRY JUICE AND JELL-O. ASPIRATION PRECAUTION NOTED. HOB ON HIGH FOWLERS. PLACED BACK BIPAP WT SETTINGS ORDERED. PT REMAINS ALERT AND AWAKE. NO C/O PAIN. SR-ST WT ON AND OFF A. FIB ON DOUGH CUTTER. ABLE TO MOUTH WORDS AND WRITE ON BOARD TO MAKE NEEDS KNOWN. SAFETY PRECAUTION NOTED. CALL LIGHT KEPT WITHIN REACH.
[2019-02-09] VITALS (104 sets, daily range): BP systolic 45–162; BP diastolic 24–89
[2019-02-09] MEDS: BLOOD SUGAR DIAGNOSTIC 1 EACH STRIP IN SCH ×6 (01:26→21:21)
[2019-02-09] MEDS: VANCOMYCIN 1 GM in IV D5W 250 ML IV SCH (01:44)
[2019-02-09] MEDS: IV NS 0.9% 250 ML IV PRN (01:47)
[2019-02-09] MEDS: IPRATROPIUM NEB FS 0.5 MG/2.5 ML AMPUL.NEB NEB SCH ×5 (03:42→19:43)
[2019-02-09 04:29] LABS: BASOPHILS % (AUTO) 0.1 % (0.0-2.0); EOSINOPHILS % (AUTO) 0.3 % (0.0-6.0); HEMATOCRIT 24 % (33-45); HEMOGLOBIN 7.9 g/dL (11.5-14.8); LYMPHOCYTES # (AUTO) 0.3 /CMM (0.8-4.8); LYMPHOCYTES % (AUTO) 1.9 % (20.0-44.0); MEAN CORPUSCULAR HGB CONC 33 g/dl (31.0-36.0); MEAN CORPUSCULAR VOLUME 93 fL (82-100); MONOCYTES # (AUTO) 0.8 /CMM (0.1-1.30); MONOCYTES % (AUTO) 6.2 % (2.0-12.0); NEUTROPHILS % (AUTO) 91.5 % (43.0-81.0); PLATELET COUNT (AUTO) 253 /CMM (150-450); WHITE BLOOD COUNT (AUTO) 13.1 K/uL (4.3-11.0)
[2019-02-09 04:46] LABS: ALANINE AMINOTRANSFERASE 96 U/L (12-78); ALBUMIN 1.8 g/dL (3.4-5.0); ALKALINE PHOSPHATASE 96 U/L (46-116); ASPARTATE AMINOTRANSFERASE 50 U/L (15-37); BILIRUBIN,TOTAL 0.4 mg/dL (0.2-1.0); CALCIUM, SERUM 7.9 mg/dL (8.5-10.1); CARBON DIOXIDE 34 mmol/L (21-32); CHLORIDE 104 mmol/L (98-107); CREATININE 0.9 mg/dL (0.6-1.3); GLUCOSE 129 mg/dL (74-106); MAGNESIUM 1.8 mg/dL (1.8-2.4); PHOSPHORUS 3.4 mg/dL (2.5-4.9); POTASSIUM 3.3 mmol/L (3.5-5.1); SODIUM SERUM 141 mmol/L (136-145); TOTAL PROTEIN, SERUM 5.4 g/dL (6.4-8.2); UREA NITROGEN, BLOOD 13 mg/dL (7-18)
[2019-02-09] MEDS: METRONIDAZOLE 500MG/ NS 100ML 500 MG in PREMIX 1 EA IV SCH ×3 (05:18→21:26)
--- NOTE | 2019-02-09 05:35 | NUR ---
SALES PLANNING MANAGER: PT OPENS EYES WHEN TOUCHED OR CALLED BY NAME. ABLE TO FOLLOW SIMPLE COMMANDS BUT MORE DROWSY. CONTINUE ON BIPAP WT SETTINGS ORDERED WITH FI02 OF 80%. PT HAS EPISODES OF DESATURATION IN THE LOW 80s WHEN TAKEN OFF BIPAP DURING ORAL CARE/WHEN GIVEN FLUIDS BY MOUTH. HOB ON HIGH OLIVIER'S. LEFT MID LUNG CHEST TUBE IN PLACE CONNECTED TO WALL SUCTION WT SEROSANGUINEOUS DRAINAGE AND WT NO AIR LEAK. SAFETY PRECAUTION NOTED AT ALL TIMES.
[2019-02-09] MEDS: POTASSIUM CL. PREMIX PERIPHER. 50 ML IV SCH ×4 (06:25→10:06)
[2019-02-09] MEDS: ACETYLCYSTEINE 10% SOLN 400 MG/4 ML VIAL NEB SCH ×2 (07:22→14:51)
--- NOTE | 2019-02-09 08:00 | NUR ---
PT RECEIVED IN ICU, ON BIPAP W/ SETTINGS PER MD. BIPAP IN RED OUTLET, AMBUBAG AT BEDSIDE, BIPAP ALARMS CHECKED AND AUDIBLE. MEDS GIVEN INLINE PER MD ORDER. NO RESP DISTRESS NOTED AT THIS TIME. PLAN IS TO CONTINUE CARE UNDER CURRENT MD ORDERS AND MONITOR FOR CHANGES. Addendum: 02/09/19 at 0801 by KADE CISNEROS RT Amended: Links added.
--- NOTE | 2019-02-09 08:12 | NUR ---
INITIAL PRESS WRITER NOTE RCVD PT ON BIPAP, LETHARGIC UNABLE TO OPEN EYES TO NAME OR FOLLOW COMMANDS, SR ON MONITOR, FLORES TO GRAVITY DRAINING CLOUDY, YELLOW URINE. LEFT CHEST TUBE DRAINING SEROUS FLUID, TO WALL SUCTION. IV SITES C/D/I/PATENT, NO S/O INFILTRATION/PHLEBITIS OBSERVED UPON FLUSHING. PT'S SON AT BEDSIDE UPDATED REGARDING PT'S CONDITION. WILL CONTINUE TO MONITOR PT FOR SAFETY AND COMFORT. BED IN LOW AND LOCKED POSITION. HEAD OF BED ELEVATED.
[2019-02-09 08:32] LABS: ABG BASE EXCESS 2.8 mmol/L; ABG OXYGEN SATURATION 94.5 % (92.0-98.5); ABG PCO2 98.1 mmHg (35.0-45.0); ABG PH 7.148 (7.350-7.450); ABG PO2 93.2 mmHg (75.0-100.0); AaDO2 374.2 mmHg; COHb 0.3 % (0.5-1.5); MetHb 0.7 % (0.0-1.5); O2Hb 93.6 % (94.0-97.0); SITE, ABG Right Radial; VENT MODE, BG ST 20/10 12
[2019-02-09] MEDS: Z GUARD REMEDY 2 OZ OINT TP SCH (08:58)
[2019-02-09] MEDS: NYSTATIN TOP POWDER 15 GM BOTTLE TP SCH (08:58)
[2019-02-09] MEDS: HYDROGEL DRESSING 90 GM TUBE TP SCH (08:59)
--- NOTE | 2019-02-09 09:31 | NUR ---
VOLTAGE REGULATOR ASSEMBLER NOTE PULMONOLOGY GROUP CONTACTED EARLIER TODAY DUE TO CRITICAL ABG RESULTS X2 WAITING FOR CALL BACK. DR. PARNELL CALLED BACK ABG RESULTS REPORTED, HE STATED THAT PT WILL NEED TO BE INTUBATED, HE'LL BE IN UNIT WITHIN THE NEXT FEW MINUTES. PT'S SON UPDATED ON PLAN.
[2019-02-09] MEDS: NOREPINEPHRINE 8 MG in IV D5W 500 ML IV PRN (09:49)
--- NOTE | 2019-02-09 09:57 | NUR ---
PT INTUBATED BY DR. PARNELL W/ ETT 7.5 AND SECURED AT 23CM LIPLINE. PT PLACED ON MECHANICAL VENT W/ SETTINGS AC 20 450 100% +0 PER . VENT IN RED OUTLET, VENT ALARMS CHECKED AND AUDIBLE, AMBUBAG AT BEDSIDE. BREATH SOUNDS EQUAL DIMINISHED, PT SX'ED AND LAVAGED TO MOD AMOUNTS OF THICK PALE YELLOW SECRETIONS. ETT SECURE, PATENT, CLEAN AND DRY. ETT PLACEMENT CONFIRMED W/ POSITIVE COLOR CHANGE ON CO2 DETECTOR, EQUAL BREATH SOUNDS AND XRAY. Addendum: 02/09/19 at 1001 by KADE CISNEROS RT Amended: Links added.
[2019-02-09] MEDS ORDERED: IV NS 0.9% 1,000 ML BAG IV ONE (10:00)
[2019-02-09] MEDS: CEFEPIME 2 GM in IV D5W 100 ML IV SCH ×2 (10:07→22:58)
--- NOTE | 2019-02-09 11:10 | NUR ---
ETT PULLED BACK BY 1 CM AND RESECURED AT 22 CM LIPLINE PER RADIOLOGY AND DR. PARNELL AT BEDSIDE. BREATH SOUNDS EQUAL, BILATERAL, ETT REMAINS PATENT. ADEQUATE RETURN VOLUMES NOTED ON THE VENT, SPO2 @ 100%. Addendum: 02/09/19 at 1112 by KADE CISNEROS RT Amended: Links added.
[2019-02-09] MEDS: DEXTROSE 50%-WATER 50 ML DISP.SYRIN IV PRN ×2 (13:10→14:08)
[2019-02-09] MEDS: PROPOFOL 100 ML IV PRN (15:25)
[2019-02-09] MEDS ORDERED: FEE EMEERGENCY 1 MIN EA MC ONE (15:45)
[2019-02-09] MEDS ORDERED: VECURONIUM 10 MG VIAL IV ONE (15:45)
[2019-02-09] MEDS ORDERED: ETOMIDATE 2 MG/ML VIAL IV ONE (15:45)
--- NOTE | 2019-02-09 18:59 | NUR ---
REHABILITATION CASEWORKER NOTE PT REMAINS INTUBATED, SEDATED AT THIS TIME, SR ON MONITOR TOLERATING WELL, POST-INTUBATION ABG IMPROVED, ETT ADJUSTED ORDERED, FIO2 TITRATED DOWN, FLORES TO GRAVITY DRAINING CLOUDY, SARY COLORED URINE, LOW URINARY OUTPUT. DR. FISHER INFORMED THAT PT HAD NO URINARY OUTPUT AFTER 1 L BOLUS, RECOMMENDED TO MONITOR. CHEST TUBE DRESSING AND RIGHT LATERAL CHEST DRESSINGS CHANGED, IV SITES C/D/I/PATENT, NO S/O INFILTRATION/PHLEBITIS OBSERVED UPON FLUSHING. PT STARTED ON LEVOPHED POST INTUBATION THEN RE-STARTED AFTER DIPRIVAN STARTED. PT'S CARE ENDORSED TO EVS ATTENDANT RN FOR CONTINUITY OF CARE, BED IN LOW AND LOCKED POSITION. CALL LIGHT WITHIN REACH, HEAD OF BED ELEVATED. MICRO DEPARTMENT AT [facility] CALLED REQUESTING UPDATED RE: STREP SPECIES FOR WOUND CX, SENSITIVITIES WILL BE POSTED SOMETIME TOMORROW.
--- NOTE | 2019-02-09 19:30 | NUR ---
COMMONWEALTH ATTORNEY NOTE RECEIVED PT INTUBATED AND SEDATED. ON MECH VENT WITH SETTINGS WELL TOLERATED AND SATURATING WELL. ON ASPIRATION PRECAUTIONS. TELE-SR 90'S. LEFT SIDE CHEST TUBE IN PLACE AND DRAINING SEROUS FLUIDS. CECILIO PICC PATENT WITH FLUIDS INFUSING. FLORES CATHETER IN PLACE AND DRAINING BY GRAVITY. WILL CONTINUE TO MONITOR.
[2019-02-09] MEDS: VANCOMYCIN 0.75 GM in IV D5W 250 ML IV SCH (20:23)
[2019-02-10] VITALS (111 sets, daily range): BP systolic 64–145; BP diastolic 33–86
[2019-02-10] MEDS: ACETYLCYSTEINE 10% SOLN 400 MG/4 ML VIAL NEB SCH ×3 (00:08→15:43)
[2019-02-10] MEDS: IPRATROPIUM NEB FS 0.5 MG/2.5 ML AMPUL.NEB NEB SCH ×6 (00:08→20:05)
[2019-02-10] MEDS: BLOOD SUGAR DIAGNOSTIC 1 EACH STRIP IN SCH ×6 (01:06→21:23)
[2019-02-10] MEDS: PROPOFOL 100 ML IV PRN ×3 (01:07→22:06)
[2019-02-10] MEDS: IV NS 0.9% 250 ML IV PRN (01:38)
[2019-02-10] MEDS: NOREPINEPHRINE 8 MG in IV D5W 500 ML IV PRN (03:37)
[2019-02-10 04:38] LABS: BASOPHILS % (AUTO) 0.2 % (0.0-2.0); EOSINOPHILS % (AUTO) 1.5 % (0.0-6.0); HEMATOCRIT 24 % (33-45); LYMPHOCYTES # (AUTO) 0.9 /CMM (0.8-4.8); LYMPHOCYTES % (AUTO) 5.1 % (20.0-44.0); MEAN CORPUSCULAR HGB CONC 33 g/dl (31.0-36.0); MEAN CORPUSCULAR VOLUME 91 fL (82-100); MONOCYTES # (AUTO) 0.6 /CMM (0.1-1.30); MONOCYTES % (AUTO) 3.5 % (2.0-12.0); NEUTROPHILS # (AUTO) 15.1 /CMM (1.8-8.9); NEUTROPHILS % (AUTO) 89.7 % (43.0-81.0); PLATELET COUNT (AUTO) 277 /CMM (150-450); RED BLOOD CELL COUNT(AUTO) 2.64 MIL/uL (4.0-5.2); WHITE BLOOD COUNT (AUTO) 16.8 K/uL (4.3-11.0)
[2019-02-10 04:47] LABS: CALCIUM, SERUM 7.7 mg/dL (8.5-10.1); CARBON DIOXIDE 30 mmol/L (21-32); CHLORIDE 103 mmol/L (98-107); CREATININE 1.4 mg/dL (0.6-1.3); GLUCOSE 98 mg/dL (74-106); POTASSIUM 3.6 mmol/L (3.5-5.1); SODIUM SERUM 139 mmol/L (136-145); UREA NITROGEN, BLOOD 17 mg/dL (7-18)
[2019-02-10] MEDS: METRONIDAZOLE 500MG/ NS 100ML 500 MG in PREMIX 1 EA IV SCH (05:12)
[2019-02-10] MEDS: DEXTROSE 50%-WATER 50 ML DISP.SYRIN IV PRN ×2 (05:18→06:21)
[2019-02-10 05:35] LABS: BAND % (MANUAL) 18 % (0.0-5.0); EOSINOPHILS % (MANUAL) 1 % (0-4); LYMPHOCYTES % (MANUAL) 3 % (16-48); METAMYELOCYTES % 2 % (0-0); MYELOCYTES % 1 % (0-0); NEUTROPHILS % (MANUAL) 72 (42-76); PROMYELOCYTES % 2 % (0-0); REACTIVE LYMPHOCYTES 1 % (0-0)
--- NOTE | 2019-02-10 07:35 | NUR ---
PHLEBOTOMY TECH NOTE PT REMAINED STABLE DURING SHIFT. NO ACUTE DISTRESS NOTED. VENT SETTINGS WELL TOLERATED. SUCTIONED NEEDED. HOB ELEVATED AND ON ASPIRATION PRECAUTIONS. ALL NEEDS ATTENDED TO PROMPTLY. KEPT CLEAN AND DRY. WILL ENDORSE TO NEXT SHIFT FOR CONTINUITY OF CARE.
--- NOTE | 2019-02-10 07:45 | NUR ---
RT PT RECEIVED ORALLY INTUBATED WITH 7.5 ETT SECURED AT 22CM AT THE LIP LINE. PT IS ON THE VENT WITH NOTED SETTINGS. VENT ALARMS ARE SET AND AUDIBLE WITH BVM BY BEDSIDE. STATISTICAL ANALYST CUFF PRESSURE NOTED. VENT IS PLUGGED INTO RED OUTLET. SX'D SMALL THIN CLEAR SECRETIONS. NO RESPIRATORY DISTRESS NOTED AT THIS TIME, WILL CONTINUE TO MONITOR. Addendum: 02/10/19 at 1421 by PRUDENCE DOMÍNGUEZ RT Amended: Links added.
[2019-02-10] MEDS: VANCOMYCIN 0.75 GM in IV D5W 250 ML IV SCH ×2 (08:28→20:00)
[2019-02-10] MEDS: NYSTATIN TOP POWDER 15 GM BOTTLE TP SCH (08:30)
[2019-02-10] MEDS: HYDROGEL DRESSING 90 GM TUBE TP SCH (08:30)
[2019-02-10] MEDS: Z GUARD REMEDY 2 OZ OINT TP SCH (08:31)
[2019-02-10 08:53] LABS: ABG BASE EXCESS 5.9 mmol/L; ABG OXYGEN SATURATION 98.6 % (92.0-98.5); ABG PCO2 51.7 mmHg (35.0-45.0); ABG PH 7.403 (7.350-7.450); ABG PO2 281.4 mmHg (75.0-100.0); AaDO2 379.9 mmHg; COHb 0.2 % (0.5-1.5); MetHb 1.9 % (0.0-1.5); O2Hb 96.5 % (94.0-97.0); PEEP,BG 0 cm H2O; SITE, ABG Right Radial; VT, ABG 450 mL
[2019-02-10 09:07] LABS: ABG BASE EXCESS 4.4 mmol/L; ABG OXYGEN SATURATION 92.7 % (92.0-98.5); ABG PH 7.461 (7.350-7.450); ABG PO2 67.1 mmHg (75.0-100.0); MetHb 0.7 % (0.0-1.5); O2Hb 92.1 % (94.0-97.0); PEEP,BG 0 cm H2O; SITE, ABG Right Radial; VT, ABG 450 mL
[2019-02-10] MEDS: CEFEPIME 2 GM in IV D5W 100 ML IV SCH (09:57)
[2019-02-10] MEDS ORDERED: ACETAMINOPHEN 650 MG/SUPP.RECT RC PRN (10:00)
[2019-02-10] MEDS ORDERED: ALBUMIN 25% 12.5 GM/50 ML BOTTLE IV ONE ×2 (11:00→13:00)
--- NOTE | 2019-02-10 11:30 | NUR ---
Pt in Afib sustaining 120-130 HR, Dr. Tapia notified. Will monitor hr, he will order amio bolus and gtt.
[2019-02-10] MEDS ORDERED: ALBUMIN 25% 12.5 GM in PREMIX 1 EA IV ONE ×2 (12:00→13:30)
[2019-02-10] MEDS ORDERED: AMIODARONE 150 MG in IV D5W 100 ML IV ONE (12:30)
[2019-02-10] MEDS ORDERED: AMIODARONE 900 MG in IV D5W 482 ML IV PRN (12:30)
--- NOTE | 2019-02-10 12:30 | NUR ---
dr Tapia here to see pt. Amio order transmitted to the Pharmacy.
--- NOTE | 2019-02-10 12:40 | NUR ---
pt converted to SR 100. also possible allergy to iodine. ok to dc Amio gtt.
[2019-02-10] MEDS: MEROPENEM 1 G in IV NS 0.9% 100 ML IV SCH ×2 (13:01→23:35)
[2019-02-10] MEDS: FUROSEMIDE 20 MG/2 ML VIAL IV SCH ×2 (13:02→17:16)
[2019-02-10] MEDS: MICAFUNGIN SODIUM 100 MG in IV NS 0.9% 100 ML IV SCH (13:09)
--- NOTE | 2019-02-10 17:15 | NUR ---
Dr. Tapia notified pt is in Afib again 124. OK to give Dig 500 mcg IV push x once now.
[2019-02-10] MEDS ORDERED: DIGOXIN INJ 0.5 MG/2 ML AMPUL IV ONE (18:00)
[2019-02-10] MEDS ORDERED: NOREPINEPHRINE 16 MG in IV D5W 500 ML IV PRN (19:30)
--- NOTE | 2019-02-10 19:30 | NUR ---
Received patient sedated on Diprivan gtt intubated on full vent support.Left CT to 20 cm suction draining serosanguineous fluid.No air leaks noted .Dressing C/D/I.No acute respiratory distress noted. Bilateral soft wrist restraints in place for safety.SR/ST 90's-100's.Levophed gtt infusing for BP support. NPO status.Will monitor FSBS Q 4 hrs.FC to gravity drainage.Turned and repositioned.
--- NOTE | 2019-02-10 20:00 | NUR ---
Please note Vancomycin note administered.Vancomycin trough level 35.
[2019-02-10] MEDS ORDERED: NOREPINEPHRINE 4 MG/4 ML AMPUL IV ONE (20:39)
[2019-02-10] MEDS ORDERED: MEROPENEM 1 G VIAL IV ONE (23:32)
[2019-02-11] VITALS (109 sets, daily range): BP systolic 79–132; BP diastolic 43–74
[2019-02-11] MEDS: IPRATROPIUM NEB FS 0.5 MG/2.5 ML AMPUL.NEB NEB SCH ×7 (00:02→23:20)
[2019-02-11] MEDS: ACETYLCYSTEINE 10% SOLN 400 MG/4 ML VIAL NEB SCH ×4 (00:03→23:20)
[2019-02-11] MEDS: BLOOD SUGAR DIAGNOSTIC 1 EACH STRIP IN SCH ×6 (04:24→21:24)
[2019-02-11 04:55] LABS: BASOPHILS % (AUTO) 0.3 % (0.0-2.0); HEMATOCRIT 23 % (33-45); HEMOGLOBIN 7.6 g/dL (11.5-14.8); LYMPHOCYTES # (AUTO) 0.6 /CMM (0.8-4.8); LYMPHOCYTES % (AUTO) 3.5 % (20.0-44.0); MEAN CORPUSCULAR HGB CONC 34 g/dl (31.0-36.0); MEAN CORPUSCULAR VOLUME 89 fL (82-100); MONOCYTES # (AUTO) 0.4 /CMM (0.1-1.30); MONOCYTES % (AUTO) 2.8 % (2.0-12.0); NEUTROPHILS # (AUTO) 14.3 /CMM (1.8-8.9); NEUTROPHILS % (AUTO) 91.4 % (43.0-81.0); PLATELET COUNT (AUTO) 197 /CMM (150-450); RED BLOOD CELL COUNT(AUTO) 2.55 MIL/uL (4.0-5.2); WHITE BLOOD COUNT (AUTO) 15.7 K/uL (4.3-11.0)
[2019-02-11] MEDS: DEXTROSE 50%-WATER 50 ML DISP.SYRIN IV PRN (05:05)
[2019-02-11 05:07] LABS: CALCIUM, SERUM 7.8 mg/dL (8.5-10.1); CARBON DIOXIDE 31 mmol/L (21-32); CHLORIDE 102 mmol/L (98-107); CREATININE 1.9 mg/dL (0.6-1.3); GLUCOSE 74 mg/dL (74-106); POTASSIUM 3.5 mmol/L (3.5-5.1); SODIUM SERUM 139 mmol/L (136-145); UREA NITROGEN, BLOOD 19 mg/dL (7-18)
--- NOTE | 2019-02-11 06:10 | NUR ---
Patient FSBS 51 covered with D50 one amp ivp.No acute distress noted.Rechecked FSBS after 1 HR FSBS 111.No acute distress noted.Patient son visiting updated of patient status and plan of care. Verbalized understanding.
[2019-02-11] MEDS: PROPOFOL 100 ML IV PRN ×3 (07:08→23:24)
[2019-02-11] MEDS: VANCOMYCIN 0.75 GM in IV D5W 250 ML IV SCH (08:00)
[2019-02-11 08:50] LABS: ABG BASE EXCESS 3.9 mmol/L; ABG OXYGEN SATURATION 91.9 % (92.0-98.5); ABG PH 7.471 (7.350-7.450); ABG PO2 62.2 mmHg (75.0-100.0); AaDO2 178.2 mmHg; COHb 0.3 % (0.5-1.5); MetHb 0.9 % (0.0-1.5); O2Hb 90.8 % (94.0-97.0); SITE, ABG Right Radial; VENT MODE, BG A/C 20 450 40% +0; VT, ABG 450 mL
[2019-02-11] MEDS: NYSTATIN TOP POWDER 15 GM BOTTLE TP SCH (09:00)
--- NOTE | 2019-02-11 10:00 | NUR ---
Dr Beltran is here to see the pt. updated family on pt progress. no sedation vacation today.
[2019-02-11] MEDS: HYDROGEL DRESSING 90 GM TUBE TP SCH (11:03)
[2019-02-11] MEDS: Z GUARD REMEDY 2 OZ OINT TP SCH (11:04)
[2019-02-11] MEDS: MEROPENEM 1 G in IV NS 0.9% 100 ML IV SCH ×2 (12:11→23:24)
[2019-02-11] MEDS: MICAFUNGIN SODIUM 100 MG in IV NS 0.9% 100 ML IV SCH (13:05)
[2019-02-11] MEDS: IV D5/ 0.9% NACL 1,000 ML IV PRN (13:55)
--- NOTE | 2019-02-11 14:50 | NUR ---
micro contacted to update strep series.
--- NOTE | 2019-02-11 16:06 | NUR ---
RT PATIENT REMAINS INTUBATED ON [facility] VENT WITH ORDERED SETTINGS TOLERATED WELL. VENT ALARMS CHECKED + AUDIBLE. AMBU BAG AT HOB Addendum: 02/11/19 at 1607 by ABIMAEL TAPIA RT Amended: Links added.
--- NOTE | 2019-02-11 16:45 | NUR ---
MARKET SUPERINTENDENT NOTE RECEIVED PT INTUBATED AND SEDATED. ON [facility] VENT WITH SETTINGS WELL TOLERATED AND SATURATING WELL. BREATHING UNLABORED. HOB ELEVATED AND ON ASPIRATION PRECAUTIONS. TELE-SR 90. BILATERAL SOFT WRIST RESTRAINTS IN PLACE WITH PALPABLE PULSES BILATERALLY. IV CECILIO PICC WITH FLUIDS INFUSING. CHEST TUBE IN LEFT SIDE IN PLACE AND DRAINING. FLORES CATHETER IN PLACE AND DRAINING BY GRAVITY. WILL CONTINUE TO MONITOR.
[2019-02-12] VITALS (109 sets, daily range): BP systolic 83–149; BP diastolic 39–87
[2019-02-12] MEDS: BLOOD SUGAR DIAGNOSTIC 1 EACH STRIP IN SCH ×6 (01:07→21:23)
[2019-02-12] MEDS: IPRATROPIUM NEB FS 0.5 MG/2.5 ML AMPUL.NEB NEB SCH ×6 (03:25→23:15)
[2019-02-12 05:18] LABS: BASOPHILS # (AUTO) 0.3 /CMM (0.0-0.2); BASOPHILS % (AUTO) 1.3 % (0.0-2.0); HEMATOCRIT 26 % (33-45); HEMOGLOBIN 8.4 g/dL (11.5-14.8); LYMPHOCYTES # (AUTO) 0.7 /CMM (0.8-4.8); MEAN CORPUSCULAR HGB CONC 33 g/dl (31.0-36.0); MEAN CORPUSCULAR VOLUME 89 fL (82-100); MONOCYTES # (AUTO) 0.6 /CMM (0.1-1.30); MONOCYTES % (AUTO) 3.3 % (2.0-12.0); NEUTROPHILS # (AUTO) 16.9 /CMM (1.8-8.9); NEUTROPHILS % (AUTO) 89.4 % (43.0-81.0); PLATELET COUNT (AUTO) 196 /CMM (150-450); RED BLOOD CELL COUNT(AUTO) 2.86 MIL/uL (4.0-5.2); WHITE BLOOD COUNT (AUTO) 18.9 K/uL (4.3-11.0)
--- NOTE | 2019-02-12 05:30 | NUR ---
RT Pt orally intubated remains on [facility] vent settings. svn given inline. ETT secure and patent. Addendum: 02/12/19 at 0531 by SANDEEP MORALES RT Amended: Links added.
[2019-02-12 05:55] LABS: CALCIUM, SERUM 7.7 mg/dL (8.5-10.1); CARBON DIOXIDE 30 mmol/L (21-32); CHLORIDE 101 mmol/L (98-107); CREATININE 2.4 mg/dL (0.6-1.3); GLUCOSE 95 mg/dL (74-106); POTASSIUM 3.4 mmol/L (3.5-5.1); SODIUM SERUM 138 mmol/L (136-145); UREA NITROGEN, BLOOD 23 mg/dL (7-18)
[2019-02-12] MEDS: ACETYLCYSTEINE 10% SOLN 400 MG/4 ML VIAL NEB SCH ×3 (07:42→23:15)
--- NOTE | 2019-02-12 07:49 | NUR ---
INITIAL TINNER HELPER NOTE RCVD PT SEDATED, INTUBATED ETT 7.5 22 AT LIP LINE, SR ON MONITOR, TOLERATING ORDERED VENT SETTINGS WELL, LEFT CHEST TUBE DRAINING SEROUS FLUID, DRESSING APPEARS C/D/I. FLORES TO GRAVITY DRAINING YELLOW URINE, CECILIO PICC C/D/I/PATENT, NO S/O INFILTRATION, PHLEBITIS OBSERVED, IVF INFUSING ORDERED, DIPRIVAN AND LEVO TITRATED ORDERED. BILATERAL SOFT WRISTS RESTRAINTS IN PLACE, CIRCULATION CHECKS DONE. WILL CONTINUE TO MONITOR PT FOR SAFETY AND COMFORT, BED IN LOW AND LOCKED POSITION. CALL LIGHT WITHIN REACH, HEAD OF BED ELEVATED.
[2019-02-12] MEDS ORDERED: NOREPINEPHRINE 8 MG in IV D5W 500 ML IV PRN (08:30)
[2019-02-12] MEDS: Z GUARD REMEDY 2 OZ OINT TP SCH (08:45)
[2019-02-12] MEDS: HYDROGEL DRESSING 90 GM TUBE TP SCH (08:46)
[2019-02-12] MEDS: NYSTATIN TOP POWDER 15 GM BOTTLE TP SCH (08:46)
[2019-02-12] MEDS: IV D5/ 0.9% NACL 1,000 ML IV PRN (08:49)
[2019-02-12] MEDS ORDERED: POTASSIUM CHLORIDE 20 MEQ POWDER PACKET PO ONE (09:00)
[2019-02-12 09:12] LABS: ABG BASE EXCESS 3.9 mmol/L; ABG OXYGEN SATURATION 90.1 % (92.0-98.5); ABG PCO2 36.2 mmHg (35.0-45.0); ABG PH 7.494 (7.350-7.450); ABG PO2 59.2 mmHg (75.0-100.0); AaDO2 184.4 mmHg; COHb 0.3 % (0.5-1.5); MetHb 0.5 % (0.0-1.5); O2Hb 89.4 % (94.0-97.0); SITE, ABG Right Radial; VENT MODE, BG AC 20 450 40% +0
--- NOTE | 2019-02-12 09:32 | NUR ---
SEDATION VACATION PT APPEARS DROWSY NOT FOLLOWING COMMANDS AT THIS TIME WILL CONTINUE TO MONITOR.
--- NOTE | 2019-02-12 09:38 | NUR ---
RT RATE 16 PER MD QARNI
--- NOTE | 2019-02-12 11:45 | NUR ---
SW received a call from pt's son requesting to speak with SW. SW and upper caser Gil met with pt. in ICU. Pt's son states he is the next of kin for the pt. Pt's IHSS worker Jessica was also present for a few minutes to inform SW that she is pt's IHSS worker and that pt. didn't want her son to make decisions for her. However, there is no legal document stating that pt's son is not allowed to make decisions on her behalf if pt. is unable to make them for herself. There is no legal document stating that the IHSS worker Jessica is the decision-making. This was explained to Jessica as well. Pt' son requested for the [employer] manager contact number so he can follow up with them regarding the pt's IHSS worker and issues he is having. SOFIYA Leo was present as well.
[2019-02-12] MEDS: MEROPENEM 1 G in IV NS 0.9% 100 ML IV SCH (12:14)
[2019-02-12] MEDS: NOREPINEPHRINE 16 MG in IV D5W 500 ML IV PRN (12:16)
[2019-02-12] MEDS: MICAFUNGIN SODIUM 100 MG in IV NS 0.9% 100 ML IV SCH (13:29)
[2019-02-12] MEDS ORDERED: GLUCERNA 1.2 1,000 ML BOTTLE NG PRN (13:30)
[2019-02-12] MEDS: PROSOURCE / PROSTAT (PYXIS) 30 ML UDC GT SCH (17:00)
--- NOTE | 2019-02-12 18:03 | NUR ---
RT RECD PT INTUBATED WITH 7.5 ETT 22 AT LIP INTACT AND SECURED ON MECH VENT ALARMS ON AND AUDIBLE BAG AND MASK AT HOB TXS GIVE NO ADVERSE REACTION NOTED ATT NO RESP DISTRESS THROUGHOUT SHIFT WILL CONT TO MONITOR
--- NOTE | 2019-02-12 18:25 | NUR ---
GERIATRIC SOCIAL WORKER NOTE PT REMAINS AWAKE AND ALERT TO SELF, ABLE TO FOLLOW SIMPLE COMMANDS, AND ACKNOWLEDGES INSTRUCTIONS BY NODDING. SR ON MONITOR, RESTRAINTS WERE REMOVED, OFF SEDATION AT THIS TIME. TOLERATING ORDERED VENT SETTINGS, FLORES TO GRAVITY DRAINING YELLOW URINE, OG-TUBE IN PLACE ORDERED, PLACEMENT VERIFIED BY SECOND RN CECILIO BLISS PICC C/D/I/PATENT, NO S/O INFILTRATION/PHLEBITIS OBSERVED UPON FLUSHING. TUBE FEEDING STARTED ORDERED, TOLERATING WELL LAST RESIDUAL 5ML. PT'S CARE WILL BE ENDORSED TO KENO MANAGER RN FOR CONTINUITY OF CARE. BED IN LOW AND LOCKED POSITION. CALL LIGHT WITHIN REACH, HEAD OF BED ELEVATED. PROSTAT NOT GIVEN SINCE THERE'S NO SUPPLY IN UNIT, KITCHEN CALLED AND STILL NO SUPPLY.
--- NOTE | 2019-02-12 20:18 | NUR ---
RECEIVED PT INTUBATED 7.5 ETT SECURED AT 22CM AT THE LIP. PT IS AWAKE TOLERATING VENT SETTINGS. SX'D FOR SML AMT OF THIN CLEAR SECRETIONS. ETT SECURE, CUFF TEXTILES PRINTER. VENT ALARMS SET AND AUDIBLE. AMBU BAG AT BEDSIDE. WILL CONTINUE TO MONITOR. Addendum: 02/12/19 at 2020 by NIURKA GUERRERO RT Amended: Links added.
[2019-02-13] VITALS (106 sets, daily range): BP systolic 81–133; BP diastolic 43–89
[2019-02-13] MEDS: MEROPENEM 1 G in IV NS 0.9% 100 ML IV SCH ×2 (00:55→12:16)
[2019-02-13] MEDS: BLOOD SUGAR DIAGNOSTIC 1 EACH STRIP IN SCH ×6 (00:56→20:30)
[2019-02-13] MEDS: IPRATROPIUM NEB FS 0.5 MG/2.5 ML AMPUL.NEB NEB SCH ×6 (03:11→23:38)
[2019-02-13 05:08] LABS: BASOPHILS % (AUTO) 0.1 % (0.0-2.0); EOSINOPHILS % (AUTO) 1.4 % (0.0-6.0); HEMATOCRIT 24 % (33-45); HEMOGLOBIN 8.1 g/dL (11.5-14.8); LYMPHOCYTES # (AUTO) 0.9 /CMM (0.8-4.8); LYMPHOCYTES % (AUTO) 4.1 % (20.0-44.0); MEAN CORPUSCULAR HGB CONC 34 g/dl (31.0-36.0); MEAN CORPUSCULAR VOLUME 89 fL (82-100); MONOCYTES % (AUTO) 4.6 % (2.0-12.0); NEUTROPHILS # (AUTO) 19.9 /CMM (1.8-8.9); NEUTROPHILS % (AUTO) 89.8 % (43.0-81.0); PLATELET COUNT (AUTO) 132 /CMM (150-450); RED BLOOD CELL COUNT(AUTO) 2.72 MIL/uL (4.0-5.2); WHITE BLOOD COUNT (AUTO) 22.2 K/uL (4.3-11.0)
[2019-02-13 05:23] LABS: CALCIUM, SERUM 7.9 mg/dL (8.5-10.1); CARBON DIOXIDE 28 mmol/L (21-32); CHLORIDE 104 mmol/L (98-107); CREATININE 2.7 mg/dL (0.6-1.3); GLUCOSE 114 mg/dL (74-106); POTASSIUM 3.6 mmol/L (3.5-5.1); SODIUM SERUM 140 mmol/L (136-145); UREA NITROGEN, BLOOD 29 mg/dL (7-18)
[2019-02-13] MEDS: IV D5/ 0.9% NACL 1,000 ML IV PRN (06:50)
--- NOTE | 2019-02-13 07:18 | NUR ---
OPERATION MANAGER NOTE PT REMAINED STABLE DURING SHIFT. A/O TO NAME. MECH VENT SETTINGS WELL TOLERATED. ON LEVO @ 3MCG/MIN. KEPT CLEAN AND DRY. SUCTIONED NEEDED. REPOSITIONED Q2H. TUBE FEEDING TURNED OFF AT 0630 WITH RESIDUALS OF 200 ML. ON ASPIRATION PRECAUTIONS AND HOB ELEVATED. SON AT BEDSIDE. CHEST TUBE IN PLACE WITH 200 ML OUTPUT NOTED. ALL SAFETY MEASURES IN PLACE. WILL ENDORSE TO NEXT SHIFT FOR CONTINUITY OF CARE.
[2019-02-13] MEDS: ACETYLCYSTEINE 10% SOLN 400 MG/4 ML VIAL NEB SCH ×3 (07:23→23:38)
--- NOTE | 2019-02-13 07:50 | NUR ---
PEANUT CLEANER NOTE RCVD PT OFF SEDATION, ABLE TO OPEN EYES TO NAME, FOLLOWS COMMANDS INCONSISTENTLY, UNABLE TO SQUEEZE HANDS BILATERALLY BUT ABLE TO MOVE LOWER EXTREMITIES ON COMMAND. OFF RESTRAINTS, TOLERATING ORDERED VENT SETTINGS WELL, ETT 7.5 22 AT LIP, SR ON MONITOR. OG-TUBE CLAMPED, 540 ML RESIDUAL OBTAINED THIS AM. FLORES TO GRAVITY DRAINING CLOUDY, YELLOW URINE. LEFT CHEST TUBE WITH SEROUS DRAINAGE, DRESSING C/D/I. CECILIO PICC C/D/I/PATENT, NO S/O INFILTRATION/PHLEBITIS OBSERVED, IVF INFUSING ORDERED. WILL CONTINUE TO MONITOR PT FOR SAFETY AND COMFORT. BED IN LOW AND LOCKED POSITION. CALL LIGHT WITHIN REACH. HEAD OF BED ELEVATED.
[2019-02-13] MEDS: ASCORBIC ACID 500 MG TABLET PO SCH (08:31)
[2019-02-13] MEDS: MULTIVITAMINS,THERAGRAN 1 UDTAB TABLET PO SCH (08:31)
[2019-02-13] MEDS: HYDROGEL DRESSING 90 GM TUBE TP SCH (08:33)
[2019-02-13] MEDS: Z GUARD REMEDY 2 OZ OINT TP SCH (08:34)
[2019-02-13] MEDS: NYSTATIN TOP POWDER 15 GM BOTTLE TP SCH (08:34)
--- NOTE | 2019-02-13 09:02 | NUR ---
PT RECEIVED ORALLY INTUBATED ON MECHANICAL VENT W/ NOTED SETTINGS PER MD ORDER. VENT ALARMS CHECKED, VENT IN RED OUTLET, AMBUBAG AT BEDSIDE. PT SX'ED AND LAVAGED PRN. MEDS GIVEN INLINE PER MD ORDER. ETT CLEAN, PATENT, SECURED W/ ANCHOFAST. PLAN IS TO CONTINUE CARE UNDER CURRENT MD ORDERS AND MONITOR FOR CHANGES. Addendum: 02/13/19 at 0904 by KADE CISNEROS RT Amended: Links added.
[2019-02-13] MEDS: PROSOURCE / PROSTAT (PYXIS) 30 ML UDC GT SCH ×2 (09:14→17:11)
--- NOTE | 2019-02-13 11:01 | NUR ---
SUPERVISOR DRILLING AND SHOOTING NOTE DR. FISHER IN UNIT UPDATED ON PT'S CONDITION INFORMED OF INCREASED RESIDUAL THIS AM, RECOMMENDED REGLAN, WILL CONTINUE TO MONITOR. DR. ELLIS INFORMED ABOUT PT'S RIGHT OLD CHEST TUBE SITE WITH PURULENT DRAINAGE, MD ACKNOWLEDGED, WILL CONTINUE TO MONITOR.
[2019-02-13] MEDS: METOCLOPRAMIDE HCL 10 MG/2 ML VIAL IV SCH ×2 (12:17→17:11)
[2019-02-13] MEDS: NOREPINEPHRINE 16 MG in IV D5W 500 ML IV PRN (12:18)
[2019-02-13] MEDS: MICAFUNGIN SODIUM 100 MG in IV NS 0.9% 100 ML IV SCH (13:34)
[2019-02-13] MEDS: JEVITY 1.2 CAL 1,000 ML BOTTLE GT PRN (15:11)
[2019-02-13] MEDS: DEXTROSE 50%-WATER 50 ML DISP.SYRIN IV PRN (17:10)
--- NOTE | 2019-02-13 18:02 | NUR ---
SOW FARM BARN TECHNICIAN NOTE PT REMAINS STABLE, INTUBATED, OFF SEDATION, FOLLOWING SIMPLE COMMANDS ON/OFF, OPENS EYES TO NAME, SR ON MONITOR, INTUBATED ETT 7.5 22 AT LIP, TOLERATING ORDERED VENT SETTINGS. PT TRANSPORTED TO RADIOLOGY FOR CT HEAD EARLIER IN THE DAY, TOLERATED TRANSPORT WELL. OG-TUBE PLACEMENT VERIFIED REMAINS AT 50 CM AT LIP, TUBE FEEDING RE-STARTED THIS AFTERNOON, FLORES TO GRAVITY DRAINING CLOUDY, YELLOW URINE, CECILIO PICC DRESSING CHANGED, LEFT CHEST TUBE DRESSING CHANGED, CONTINUES TO DRAIN SEROUS FLUID. PT'S CARE WILL BE ENDORSED TO APPRENTICE ELECTRICIAN RN FOR CONTINUITY OF CARE, BED IN LOW AND LOCKED POSITION, HEAD OF BED ELEVATED. DEX MOSQUEDA INFORMED OF PT'S SACRAL/COCCYX DTI OPENING OF YESTERDAY. JAYLIN ACKNOWLEDGED. NO NEW ORDERS DR. SUSANA METCALF IS FOLLOWING PT.
--- NOTE | 2019-02-13 19:30 | NUR ---
HAND PASTER RCD PT W/ DX SEPSIS, RESP FAILURE, LEFT LUNG PNEUMOTHORAX; PT IS AWAKE BUT DOES NOT FOLLOW COMMANDS; OFF SEDATION AND NO RESTRAINTS IN PLACE. PT NOT ATTEMPTING TO PULL AT ANY TUBES. CONTINUE TO MONITOR. NSR ON MONITOR. ON LEVOPHED 2 MCG/MIN TO KEEP MAP >65. INTUBATED 7.5 @ 22 W/VENT SETTINGS AC 16 450 40%; PT HAS SMALL AMOUNT OF THIN WHITE SECRETIONS. LEFT CHEST TUBE TO WALL SUCTION. SACRAL WOUND WITH MEPILEX INTACT. OG TUBE WITH JEVITY 1.2 @ 30 ML/HR. CONTINUE TO MONITOR RESIDUAL.
[2019-02-13] MEDS: LINEZOLID RTU BAG 600 MG in PREMIX 1 EA IV SCH (20:30)
[2019-02-13] MEDS: IV NS 0.9% 250 ML IV PRN (20:30)
[2019-02-14] VITALS (103 sets, daily range): BP systolic 82–184; BP diastolic 46–98
[2019-02-14] MEDS: MEROPENEM 1 G in IV NS 0.9% 100 ML IV SCH ×2 (00:39→11:49)
[2019-02-14] MEDS: METOCLOPRAMIDE HCL 10 MG/2 ML VIAL IV SCH ×4 (00:39→17:00)
[2019-02-14] MEDS: BLOOD SUGAR DIAGNOSTIC 1 EACH STRIP IN SCH ×6 (01:20→21:32)
[2019-02-14] MEDS: INSULIN REGULAR, HUMAN 100 UNIT/ML 3 ML VIAL SQ PRN (01:44)
[2019-02-14] MEDS: IPRATROPIUM NEB FS 0.5 MG/2.5 ML AMPUL.NEB NEB SCH ×6 (03:13→23:28)
[2019-02-14] MEDS: IV D5/ 0.9% NACL 1,000 ML IV PRN (04:32)
[2019-02-14 05:09] LABS: BASOPHILS # (AUTO) 0.1 /CMM (0.0-0.2); BASOPHILS % (AUTO) 0.3 % (0.0-2.0); EOSINOPHILS % (AUTO) 1.3 % (0.0-6.0); HEMATOCRIT 24 % (33-45); LYMPHOCYTES % (AUTO) 3.8 % (20.0-44.0); MEAN CORPUSCULAR HGB CONC 33 g/dl (31.0-36.0); MEAN CORPUSCULAR VOLUME 89 fL (82-100); MONOCYTES # (AUTO) 1.1 /CMM (0.1-1.30); NEUTROPHILS # (AUTO) 24.4 /CMM (1.8-8.9); NEUTROPHILS % (AUTO) 90.6 % (43.0-81.0); PLATELET COUNT (AUTO) 107 /CMM (150-450); RED BLOOD CELL COUNT(AUTO) 2.69 MIL/uL (4.0-5.2); WHITE BLOOD COUNT (AUTO) 26.9 K/uL (4.3-11.0)
[2019-02-14 05:11] LABS: CARBON DIOXIDE 29 mmol/L (21-32); CHLORIDE 103 mmol/L (98-107); CREATININE 3.1 mg/dL (0.6-1.3); GLUCOSE 131 mg/dL (74-106); POTASSIUM 3.4 mmol/L (3.5-5.1); SODIUM SERUM 140 mmol/L (136-145); UREA NITROGEN, BLOOD 38 mg/dL (7-18)
--- NOTE | 2019-02-14 06:00 | NUR ---
UNIT LEADER SON AT BEDSIDE UPDATED WITH PLAN OF CARE.
[2019-02-14 06:02] LABS: EOSINOPHILS % (MANUAL) 1 % (0-4); LYMPHOCYTES % (MANUAL) 1 % (16-48); METAMYELOCYTES % 1 % (0-0); MONOCYTES % (MANUAL) 6 % (0-11.0); MYELOCYTES % 2 % (0-0); NEUTROPHILS % (MANUAL) 89 (42-76)
[2019-02-14] MEDS: ACETYLCYSTEINE 10% SOLN 400 MG/4 ML VIAL NEB SCH ×3 (07:05→23:28)
--- NOTE | 2019-02-14 07:15 | NUR ---
RN INITIAL NOTES RECEIVED PT INTUBATED, ON VENT. TOLERATING WELL. NO RESPIRATORY DISTRESS NOTED. NO SOB NOTED. HOB ELEVATED. PT A/OX1, LETHARGIC. ABLE TO FOLLOW SIMPLE COMMANDS. OG IN PLACE. ON GTF. WILL MONITOR RESIDUAL. CECILIO PICC IN PLACE. ON LEVO AT 2MCG/MIN. IVF INFUSING. WILL KEEP MAP>65. FC IN PLACE. NO HEMATURIA NOTED. BLE ELEVATED. PT COMFORTABLE. WILL MONITOR
[2019-02-14] MEDS ORDERED: POTASSIUM CHLORIDE 20 MEQ POWDER PACKET GT ONE (07:30)
[2019-02-14 08:00] LABS: ABG BASE EXCESS 2.7 mmol/L; ABG OXYGEN SATURATION 93.9 % (92.0-98.5); ABG PCO2 35.8 mmHg (35.0-45.0); ABG PH 7.483 (7.350-7.450); ABG PO2 73.7 mmHg (75.0-100.0); AaDO2 170.3 mmHg; COHb 0.1 % (0.5-1.5); MetHb 1.2 % (0.0-1.5); O2Hb 92.7 % (94.0-97.0); SITE, ABG Right Radial
[2019-02-14] MEDS ORDERED: VANCOMYCIN 0.75 GM in IV D5W 250 ML IV SCH (08:00)
--- NOTE | 2019-02-14 08:09 | NUR ---
DUPLICATE ABG ORDERS CANCELLED PER POLICY
[2019-02-14] MEDS: ASCORBIC ACID 500 MG TABLET PO SCH (08:14)
[2019-02-14] MEDS: NYSTATIN TOP POWDER 15 GM BOTTLE TP SCH (08:14)
[2019-02-14] MEDS: HYDROGEL DRESSING 90 GM TUBE TP SCH (08:14)
[2019-02-14] MEDS: MULTIVITAMINS,THERAGRAN 1 UDTAB TABLET PO SCH (08:14)
[2019-02-14] MEDS: LINEZOLID RTU BAG 600 MG in PREMIX 1 EA IV SCH ×2 (08:14→21:32)
[2019-02-14] MEDS: PROSOURCE / PROSTAT (PYXIS) 30 ML UDC GT SCH ×2 (08:14→17:00)
[2019-02-14] MEDS: Z GUARD REMEDY 2 OZ OINT TP SCH (08:15)
--- NOTE | 2019-02-14 10:30 | NUR ---
RN NOTES 0930 SEEN AND EXAMINED BY DR FISHER. AWARE OF LAB VALUES AND CXR RESULT. WBC 26.9, HGB 8, HCT 24, PLATELET 107. NO SIGNS OF ACTIVE BLEEDING NOTED. POTASSIUM 3.4, REPLACED WITH KCL 20MEQ. AWARE OF CXR RESULT. WILL MONITOR 1000 SEEN AND EXAMINED [address] DR ELLIS. AWARE OF LAB VALUES, CXR AND ABG RESULT. WILL CONTINUE PT ON AC MODE ORDERED. WILL CLOSELY MONITOR.
[2019-02-14] MEDS: HYDROCODONE/APAP 5/325MG 1 EACH TABLET PO PRN (11:46)
[2019-02-14] MEDS: MICAFUNGIN SODIUM 100 MG in IV NS 0.9% 100 ML IV SCH (12:28)
[2019-02-14] MEDS: NOREPINEPHRINE 16 MG in IV D5W 500 ML IV PRN (12:29)
[2019-02-14] MEDS: IV NS 0.9% 250 ML IV PRN (13:20)
[2019-02-14] MEDS: JEVITY 1.2 CAL 1,000 ML BOTTLE GT PRN (15:55)
--- NOTE | 2019-02-14 18:41 | NUR ---
RN CLOSING NOTES PT REMAINS INTUBATED. TOLERATING VENT WELL. NO RESPIRATORY DISTRESS NOTED. NO SIGNS OF PAIN NOTED. PICC LINE IN PLACE, IVF INFUSING. REMAINS ON LEVO AT 2MCG/MIN, MAP KEPT>65. OGT IN PLACE, TOLERATING GTF. FC IN PLACE. TX PROVIDED ORDERED. KEPT CLEAN AND DRY. REPOSITIONED Q2. BLE ELEVATED. KEPT COMFORTABLE. WILL ENDORSE FOR CONTINUITY OF CARE.
--- NOTE | 2019-02-14 19:37 | NUR ---
PT RECEIVED ORALLY INTUBATED WITH 7.5 ETT SECURED@ 22 CM ON MECHANICAL VENT W/ NOTED SETTINGS PER MD ORDER. VENT ALARMS CHECKED, VENT PLUGGED INTO RED OUTLET, AMBU BAG AT BEDSIDE. PT SUCTIONED AND LAVAGED PRN. BREATHING TX GIVEN PER MD ORDER, NO ADVERSE REACTION NOTED. ETT PATENT AND SECURED. NO RESPIRATORY DISTRESS NOTED AT THIS TIME . WILL CONTINUE TO MONITOR THE PT.
[2019-02-15] VITALS (92 sets, daily range): BP systolic 90–139; BP diastolic 48–81
[2019-02-15] MEDS: IV D5/ 0.9% NACL 1,000 ML IV PRN ×2 (00:16→17:17)
[2019-02-15] MEDS: MEROPENEM 1 G in IV NS 0.9% 100 ML IV SCH ×2 (00:27→12:18)
[2019-02-15] MEDS: METOCLOPRAMIDE HCL 10 MG/2 ML VIAL IV SCH ×4 (00:27→17:06)
[2019-02-15] MEDS: BLOOD SUGAR DIAGNOSTIC 1 EACH STRIP IN SCH ×6 (00:28→21:19)
[2019-02-15] MEDS: IPRATROPIUM NEB FS 0.5 MG/2.5 ML AMPUL.NEB NEB SCH ×6 (03:39→22:57)
[2019-02-15 05:07] LABS: CARBON DIOXIDE 27 mmol/L (21-32); CHLORIDE 102 mmol/L (98-107); CREATININE 3.3 mg/dL (0.6-1.3); GLUCOSE 123 mg/dL (74-106); POTASSIUM 3.8 mmol/L (3.5-5.1); SODIUM SERUM 138 mmol/L (136-145); UREA NITROGEN, BLOOD 47 mg/dL (7-18)
[2019-02-15 05:09] LABS: BASOPHILS % (AUTO) 0.2 % (0.0-2.0); HEMATOCRIT 23 % (33-45); HEMOGLOBIN 7.5 g/dL (11.5-14.8); LYMPHOCYTES # (AUTO) 0.9 /CMM (0.8-4.8); LYMPHOCYTES % (AUTO) 3.7 % (20.0-44.0); MEAN CORPUSCULAR HGB CONC 33 g/dl (31.0-36.0); MEAN CORPUSCULAR VOLUME 89 fL (82-100); MONOCYTES # (AUTO) 1.2 /CMM (0.1-1.30); MONOCYTES % (AUTO) 4.7 % (2.0-12.0); NEUTROPHILS # (AUTO) 23.1 /CMM (1.8-8.9); NEUTROPHILS % (AUTO) 89.4 % (43.0-81.0); PLATELET COUNT (AUTO) 69 /CMM (150-450); RED BLOOD CELL COUNT(AUTO) 2.55 MIL/uL (4.0-5.2); WHITE BLOOD COUNT (AUTO) 25.8 K/uL (4.3-11.0)
[2019-02-15 05:38] LABS: EOSINOPHILS % (MANUAL) 2 % (0-4); MONOCYTES % (MANUAL) 6 % (0-11.0); NEUTROPHILS % (MANUAL) 84 (42-76)
[2019-02-15 06:08] LABS: LYMPHOCYTES % (MANUAL) 6 % (16-48)
--- NOTE | 2019-02-15 07:05 | NUR ---
RN NOTES RECEIVED PT ON BED, INTUBATED, ON VENT. TOLERATING CURRENT VENT SETTING WELL, NONVERBAL , NO RESPIRATORY DISTRESS NOTED. NO SOB NOTED. HOB ELEVATED. L SIDE CHEST TUBE INTACT , OG IN PLACE WITH TF JEVITY AT 40CC/HR RUNNING , TOLERATING WELL, ON TELE SR HR IN 90'S , LEVO AT 2 MCG/MIN AND D5NS AT 50CC/HR RUNNING VIA R UPPER ARM PICC LINE , SITE CLEAN, DRY AND INTACT, FC DRAINING TO GRAVITY, BLE ELEVATED. CONTINUE TO MONITOR.
--- NOTE | 2019-02-15 07:18 | NUR ---
PT REMAINS IN NO ACUTE DISTRESS IN BED. PT DID NOT HAVE ANY SIGNIFICANT CHANGE IN CONDITION DURING SHIFT. ALL NEEDS MET, ALL ORDERS CARRIED OUT. PT TOLERATED VENT SETTING WELL. WILL ENDORSE CARE TO AM RN FOR CONTINUITY OF CARE.
[2019-02-15] MEDS: ACETYLCYSTEINE 10% SOLN 400 MG/4 ML VIAL NEB SCH ×3 (07:43→22:57)
[2019-02-15] MEDS: ASCORBIC ACID 500 MG TABLET PO SCH (08:38)
[2019-02-15] MEDS: MULTIVITAMINS,THERAGRAN 1 UDTAB TABLET PO SCH (08:39)
[2019-02-15] MEDS: Z GUARD REMEDY 2 OZ OINT TP SCH (08:39)
[2019-02-15] MEDS: LINEZOLID RTU BAG 600 MG in PREMIX 1 EA IV SCH (08:39)
[2019-02-15] MEDS: NYSTATIN TOP POWDER 15 GM BOTTLE TP SCH (08:40)
[2019-02-15] MEDS: HYDROGEL DRESSING 90 GM TUBE TP SCH (08:41)
[2019-02-15] MEDS: PROSOURCE / PROSTAT (PYXIS) 30 ML UDC GT SCH ×2 (08:43→17:05)
[2019-02-15 08:45] LABS: ABG BASE EXCESS 1.4 mmol/L; ABG OXYGEN SATURATION 94.9 % (92.0-98.5); ABG PCO2 38.4 mmHg (35.0-45.0); ABG PH 7.441 (7.350-7.450); ABG PO2 79.6 mmHg (75.0-100.0); AaDO2 161.4 mmHg; COHb 0.2 % (0.5-1.5); MetHb 1.9 % (0.0-1.5); O2Hb 92.9 % (94.0-97.0); PEEP,BG 0 cm H2O; SITE, ABG Right Brachial; VT, ABG 450 mL
[2019-02-15] MEDS ORDERED: LIDOCAINE /MPF 1% VIAL 5 ML VIAL IJ ONE (11:00)
--- NOTE | 2019-02-15 11:00 | NUR ---
RN NOTES CONSENT OBTAINED FOR US GUIDED THORACENTESIS FROM PT' SON .
[2019-02-15 11:55] LABS: APPEARANCE,URINE CLEAR (CLEAR); BILIRUBIN,URINE NEGATIVE (NEGATIVE); BLOOD, URINE 2+ Ery/uL (NEGATIVE); COLOR,URINE YELLOW (YELLOW); KETONES,URINE NEGATIVE (NEGATIVE); LEUKOCYTE ESTERASE ,URINE TRACE (NEGATIVE); NITRITE, URINE NEGATIVE (NEGATIVE); PH,URINE 5.5 (5.0-8.0); PROTEIN,URINE 2+ mg/dl (NEGATIVE); UGLUCOSE NEGATIVE (NEGATIVE); UROBILINOGEN,URINE 0.2 EU/dL (0.2)
[2019-02-15 12:02] LABS: BACTERIA,URINE Few /HPF (None Seen); SQUAMOUS EPITHELIAL CELL,UR Moderate /HPF (None Seen)
[2019-02-15 12:03] LABS: CALCIUM OXALATE CRYSTALS,UR Few /HPF (None Seen)
[2019-02-15 12:11] LABS: CREATININE, URINE 41.3 MG/DL (30.0-125.0); URINE TOTAL PROTEIN 245.3 mg/dL (0-11.9)
[2019-02-15 12:43] LABS: EOSINOPHIL,URINE None Seen
[2019-02-15] MEDS: MICAFUNGIN SODIUM 100 MG in IV NS 0.9% 100 ML IV SCH (13:10)
--- NOTE | 2019-02-15 14:00 | NUR ---
RN NOTES US GUIDED THORACENTESIS DONE BY RADIOLOGIST . 160 CC PURULENT DRAINAGES FROM R LUNG SENT TO LAB. DRESSING TO R UPPER BACK SITE CLEAN, DRY . CONTINUE TO MONITOR.
--- NOTE | 2019-02-15 16:30 | NUR ---
RN NOTES [facility] AND SPOKEN TO SONU TO CHECK SENSITIVITY OF THE ENTEROCOCCUS ON CHEST WALL CX TO TYGACIL PER DR KIMBROUGH ORDER .
--- NOTE | 2019-02-15 17:00 | NUR ---
RN NOTES PHILLIP NORWOOD AND RHONDA NOTIFED REGARDING POSITIVE YEAST IN RIGHT PLEURAL FLUID.
--- NOTE | 2019-02-15 17:00 | NUR ---
RN NOTES TELEPHONE CONSENT RECEIVED FROM PT'S SON REGARDING PIGTAIL DRAINAGE PLACEMENT ON R LUNG .
[2019-02-15] MEDS: IV NS 0.9% 250 ML IV PRN (17:18)
--- NOTE | 2019-02-15 18:00 | NUR ---
RN NOTES VSS STABLE , TOLERATING VENT SETTING WELL, TOLERATING TF AT 50CC/HR WELL , D5NS AT 50CC/HR RUNNING VIA R UPPER ARM PICC LINE. WILL ENDORSE TO LATENT FINGERPRINT EXAMINER NURSE FOR CONTINUITY OF CARE .
--- NOTE | 2019-02-15 19:00 | NUR ---
ICU R N NOTES RECEIVED PATIENT ORALLY INTUBATED,LETHARGIC BUT EASILY AWAKENS/EASILY AROUSABLE,NOT IN ANY DISTRESS, OET TO THE VENTILATOR ON AC MODE.WITH GENERALIZED EDEMA,SLIGHTLY ABLE TO MOVE BOTH UPPER EXTREMITIES BUT LIMITED DUE TO EDEMA.CHEST TUBE ON LEFT LATERAL CHEST TO PLEUROVAC DRAINAGE WITH SUCTION WITH SEROUS DRAINAGE,TUBINGS PATENT ,DRESSING DRY AND INTACT. WITH OGT WITH WITH ON GOING FEEDING,TOLERATING WELL.ASPIRATION PRECAUTION OBSERVED.COMFORT CARE DONE,NEEDS ATTENDED.
--- NOTE | 2019-02-15 19:30 | NUR ---
PT RECEIVED ORALLY INTUBATED WITH 7.5 ETT SECURED@ 22 CM ON MECHANICAL VENT W/ NOTED SETTINGS PER MD ORDER. PT IS AWAKE,AND NON VERBAL. VENT ALARMS CHECKED, VENT PLUGGED INTO RED OUTLET, AMBU BAG AT BEDSIDE. PT SUCTIONED AND LAVAGED PRN. BREATHING TX GIVEN PER MD ORDER, NO ADVERSE REACTION NOTED. ETT PATENT AND SECURED. NO RESPIRATORY DISTRESS NOTED AT THIS TIME . WILL CONTINUE TO MONITOR THE PT.
[2019-02-16] VITALS (65 sets, daily range): BP systolic 94–137; BP diastolic 45–69
--- NOTE | 2019-02-16 00:10 | NUR ---
REMAINS STABLE,AWAKE,NOT IN ANY DISTRESS.NEEDS ATTENDED. FOR CT GUIDED PIGTAIL(CHEST TUBE) INSERTION IN AM. WILL START NPO.
[2019-02-16] MEDS: MEROPENEM 1 G in IV NS 0.9% 100 ML IV SCH (00:38)
[2019-02-16] MEDS: METOCLOPRAMIDE HCL 10 MG/2 ML VIAL IV SCH ×4 (00:38→17:46)
[2019-02-16] MEDS: BLOOD SUGAR DIAGNOSTIC 1 EACH STRIP IN SCH ×6 (01:34→21:29)
[2019-02-16] MEDS: IPRATROPIUM NEB FS 0.5 MG/2.5 ML AMPUL.NEB NEB SCH ×6 (03:22→22:59)
--- NOTE | 2019-02-16 04:00 | NUR ---
REMAINS STABLE,AWAKE,ALERT,FOLLOWS COMMANDS.AM CARE DONE,DRESSINGS CHANGED.MAINTAUINED NPO .FOR PIGTAIL INSERTION IN AM.
[2019-02-16 04:10] LABS: BASOPHILS # (AUTO) 0.1 /CMM (0.0-0.2); BASOPHILS % (AUTO) 0.4 % (0.0-2.0); EOSINOPHILS % (AUTO) 1.8 % (0.0-6.0); HEMATOCRIT 21 % (33-45); LYMPHOCYTES # (AUTO) 1.1 /CMM (0.8-4.8); LYMPHOCYTES % (AUTO) 4.9 % (20.0-44.0); MEAN CORPUSCULAR HGB CONC 33 g/dl (31.0-36.0); MEAN CORPUSCULAR VOLUME 89 fL (82-100); MONOCYTES # (AUTO) 1.3 /CMM (0.1-1.30); MONOCYTES % (AUTO) 5.9 % (2.0-12.0); PLATELET COUNT (AUTO) 65 /CMM (150-450); RED BLOOD CELL COUNT(AUTO) 2.35 MIL/uL (4.0-5.2); WHITE BLOOD COUNT (AUTO) 21.9 K/uL (4.3-11.0)
[2019-02-16 04:21] LABS: ALANINE AMINOTRANSFERASE 13 U/L (12-78); ALKALINE PHOSPHATASE 249 U/L (46-116); ASPARTATE AMINOTRANSFERASE 28 U/L (15-37); BILIRUBIN,TOTAL 0.6 mg/dL (0.2-1.0); CARBON DIOXIDE 29 mmol/L (21-32); CHLORIDE 102 mmol/L (98-107); CREATININE 3.8 mg/dL (0.6-1.3); GLUCOSE 90 mg/dL (74-106); MAGNESIUM 1.8 mg/dL (1.8-2.4); PHOSPHORUS 3.4 mg/dL (2.5-4.9); POTASSIUM 4.3 mmol/L (3.5-5.1); SODIUM SERUM 136 mmol/L (136-145); TOTAL PROTEIN, SERUM 4.7 g/dL (6.4-8.2); UREA NITROGEN, BLOOD 60 mg/dL (7-18)
[2019-02-16 04:26] LABS: ALBUMIN 1.1 g/dL (3.4-5.0)
[2019-02-16 04:45] LABS: LYMPHOCYTES % (MANUAL) 7 % (16-48); MONOCYTES % (MANUAL) 8 % (0-11.0); NEUTROPHILS % (MANUAL) 85 (42-76)
[2019-02-16] MEDS ORDERED: TIGECYCLINE 50 MG in IV D5W 50 ML IV SCH (05:00)
[2019-02-16] MEDS: ACETYLCYSTEINE 10% SOLN 400 MG/4 ML VIAL NEB SCH ×3 (07:27→22:59)
--- NOTE | 2019-02-16 07:27 | NUR ---
RT Pt received orally intubated with with a 7.5 ETT secured at 22cm at the lip line. Pt is awake and alert. Vent alarms are set and audible with BVM by bedside. SCRAPER TENDER cuff pressure noted. Vent is plugged into red outlet. No respiratory distress noted at this time. Addendum: 02/16/19 at 1833 by PRUDENCE DOMÍNGUEZ RT Amended: Links added.
[2019-02-16] MEDS ORDERED: VANCOMYCIN 1 GM in IV D5W 250 ML IV SCH (08:00)
[2019-02-16 08:30] LABS: ABG BASE EXCESS 0.2 mmol/L; ABG OXYGEN SATURATION 95.6 % (92.0-98.5); ABG PCO2 39.3 mmHg (35.0-45.0); ABG PH 7.416 (7.350-7.450); ABG PO2 85.6 mmHg (75.0-100.0); AaDO2 154.4 mmHg; COHb 0.7 % (0.5-1.5); PEEP,BG 0 cm H2O; SITE, ABG Right Radial; VT, ABG 450 mL
--- NOTE | 2019-02-16 08:30 | NUR ---
ICU/RN: Spoke with [facility] ([phone]) to request Tygacil sensitivity for Chest Wall Cx as ordered by Dr Owen. Per micro, will add Tygacil to culture and sensitivity, results should be available by tomorrow.
[2019-02-16] MEDS: HYDROGEL DRESSING 90 GM TUBE TP SCH (08:34)
[2019-02-16] MEDS: Z GUARD REMEDY 2 OZ OINT TP SCH (08:34)
[2019-02-16] MEDS: MULTIVITAMINS,THERAGRAN 1 UDTAB TABLET PO SCH (08:35)
[2019-02-16] MEDS: PROSOURCE / PROSTAT (PYXIS) 30 ML UDC GT SCH ×2 (08:35→17:45)
[2019-02-16] MEDS: ASCORBIC ACID 500 MG TABLET PO SCH (08:35)
--- NOTE | 2019-02-16 08:49 | NUR ---
ICU/RN: Received call from [email or web address], unable to add Tygacil dt specimen no longer available. Will f/u with Dr Owen regarding repeat order for chest wall Cx.
[2019-02-16] MEDS: NYSTATIN TOP POWDER 15 GM BOTTLE TP SCH (09:08)
[2019-02-16] MEDS ORDERED: FENTANYL PF 250MCG/5ML AMPUL IV ONE (10:00)
[2019-02-16] MEDS ORDERED: NALOXONE PREFILLED SYRINGE 2 MG/2 ML SYRINGE IV ONE (10:00)
[2019-02-16] MEDS ORDERED: MIDAZOLAM HCL 5MG/ML VIAL 25 MG/5 ML VIAL IV ONE (10:00)
--- NOTE | 2019-02-16 11:15 | NUR ---
ICU/RN: Pt transported to radiology for CT guided R lung percutaneous drainage of abscess with drain placement with Dr Roberts, pt nods in agreement with POC. No distress noted. VSS stable, monitored per protocol, RT and RN at bedside.
--- NOTE | 2019-02-16 13:30 | NUR ---
ICU/RN: Pt back in ICU s/p drain placement, immediate output of 100cc thick, white drainage from R posterior lateral back davol drain. Dr Clarke at bedside and updated. Per MD, no need to send cultures; fluids from R thoracentesis sent to lab yesterday.
[2019-02-16] MEDS: IV D5/ 0.9% NACL 1,000 ML IV PRN (13:38)
[2019-02-16] MEDS: MEROPENEM 500 MG in IV NS 0.9% 50 ML IV SCH (13:40)
[2019-02-16] MEDS: ALBUMIN 25% 25 GM in PREMIX 1 EA IV SCH ×2 (13:40→23:43)
--- NOTE | 2019-02-16 14:15 | NUR ---
ICU/RN: Bedside report given to ROSIE Rizvi for SHRUTHI.
[2019-02-16] MEDS: MICAFUNGIN SODIUM 100 MG in IV NS 0.9% 100 ML IV SCH (14:48)
[2019-02-16] MEDS ORDERED: TIGECYCLINE 100 MG in IV D5W 100 ML IV ONE (17:00)
--- NOTE | 2019-02-16 19:23 | NUR ---
COPYWRITER NOTE PT REMAINS STABLE, TOLERATING ORDERED VENT SETTINGS, IVF INFUSING ORDERED, FLORES TO GRAVITY WITH LOW URINARY OUTPUT, MD AWARE, G-TUBE REMAINS CLAMPED, LEFT CHEST TUBE DRAINING SEROUS FLUID, AND RIGHT ACCORDION DRAINING PURULENT FLUID. PT'S CARE ENDORSED TO AGRONOMY PROFESSOR RN FOR CONTINUITY OF CARE, BED IN LOW AND LOCKED POSITION. CALL LIGHT WITHIN REACH, HEAD OF BED ELEVATED.
--- NOTE | 2019-02-16 19:42 | NUR ---
PT RECEIVED ORALLY INTUBATED WITH 7.5 ETT SECURED@ 22 CM ON MECHANICAL VENT W/ NOTED SETTINGS PER MD ORDER. PT IS AWAKE AND ALERT. VENT ALARMS CHECKED, VENT PLUGGED INTO RED OUTLET, AMBU BAG AT BEDSIDE. PT SUCTIONED AND LAVAGED PRN. BREATHING TX GIVEN PER MD ORDER, NO ADVERSE REACTION NOTED. ETT PATENT AND SECURED. GUIDEMAN CUFF PRESSURE NOTED. NO RESPIRATORY DISTRESS NOTED AT THIS TIME . WILL CONTINUE TO MONITOR THE PT.
[2019-02-17] VITALS (49 sets, daily range): BP systolic 97–145; BP diastolic 49–77
[2019-02-17] MEDS: METOCLOPRAMIDE HCL 10 MG/2 ML VIAL IV SCH ×4 (00:32→17:54)
[2019-02-17] MEDS: MEROPENEM 500 MG in IV NS 0.9% 50 ML IV SCH ×2 (00:32→11:07)
[2019-02-17] MEDS: BLOOD SUGAR DIAGNOSTIC 1 EACH STRIP IN SCH ×6 (00:59→21:07)
[2019-02-17] MEDS: IV D5/ 0.9% NACL 1,000 ML IV PRN ×2 (03:12→15:44)
[2019-02-17] MEDS: IPRATROPIUM NEB FS 0.5 MG/2.5 ML AMPUL.NEB NEB SCH ×6 (03:30→23:47)
[2019-02-17] MEDS: TIGECYCLINE 50 MG in IV D5W 50 ML IV SCH ×2 (05:19→16:33)
[2019-02-17 05:51] LABS: CALCIUM, SERUM 7.7 mg/dL (8.5-10.1); CARBON DIOXIDE 24 mmol/L (21-32); CHLORIDE 99 mmol/L (98-107); GLUCOSE 99 mg/dL (74-106); POTASSIUM 4.1 mmol/L (3.5-5.1); SODIUM SERUM 132 mmol/L (136-145); UREA NITROGEN, BLOOD 66 mg/dL (7-18)
[2019-02-17 05:56] LABS: BASOPHILS # (AUTO) 0.1 /CMM (0.0-0.2); BASOPHILS % (AUTO) 0.4 % (0.0-2.0); EOSINOPHILS % (AUTO) 0.9 % (0.0-6.0); LYMPHOCYTES # (AUTO) 0.7 /CMM (0.8-4.8); LYMPHOCYTES % (AUTO) 4.9 % (20.0-44.0); MEAN CORPUSCULAR HGB CONC 33 g/dl (31.0-36.0); MEAN CORPUSCULAR VOLUME 90 fL (82-100); MONOCYTES # (AUTO) 0.8 /CMM (0.1-1.30); MONOCYTES % (AUTO) 5.4 % (2.0-12.0); NEUTROPHILS # (AUTO) 13.1 /CMM (1.8-8.9); NEUTROPHILS % (AUTO) 88.4 % (43.0-81.0); PLATELET COUNT (AUTO) 63 /CMM (150-450); WHITE BLOOD COUNT (AUTO) 14.8 K/uL (4.3-11.0)
[2019-02-17 06:08] LABS: COMPLEMENT C3, SERUM 70 mg/dL (82-167); COMPLEMENT C4, SERUM 18 mg/dL (14-44)
[2019-02-17 06:22] LABS: RED BLOOD CELL COUNT(AUTO) 1.86 MIL/uL (4.0-5.2)
[2019-02-17 06:25] LABS: HEMATOCRIT 17 % (33-45); HEMOGLOBIN 5.5 g/dL (11.5-14.8)
--- NOTE | 2019-02-17 06:41 | NUR ---
PT REMAINS IN NO ACUTE DISTRESS IN BED. PT DID NOT HAVE ANY SIGNIFICANT CHANGE IN CONDITION DURING SHIFT. PT TOLERATED VENT SETTING WELL. ALL NEEDS MET, ALL ORDERS CARRIED OUT. WILL ENDORSE CARE TO AM RN FOR CONTINUITY OF CARE.
[2019-02-17 07:37] LABS: HEMOGLOBIN 5.7 g/dL (11.5-14.8)
--- NOTE | 2019-02-17 08:00 | NUR ---
ICU/RN: Spoke with Dr Griffin regarding critical repeat H/H; no signs of active bleeding, L chest tube with serous drainage, R davol drain with thick rebollar purulent drainage. VSS remains stable. Per MD, recheck h/h at 1000 today.
[2019-02-17] MEDS: HYDROGEL DRESSING 90 GM TUBE TP SCH (08:02)
[2019-02-17] MEDS: Z GUARD REMEDY 2 OZ OINT TP SCH (08:02)
[2019-02-17] MEDS: NYSTATIN TOP POWDER 15 GM BOTTLE TP SCH (08:03)
[2019-02-17] MEDS: ASCORBIC ACID 500 MG TABLET PO SCH (08:04)
[2019-02-17] MEDS: MULTIVITAMINS,THERAGRAN 1 UDTAB TABLET PO SCH (08:04)
[2019-02-17] MEDS: PROSOURCE / PROSTAT (PYXIS) 30 ML UDC GT SCH ×2 (08:04→16:13)
--- NOTE | 2019-02-17 08:05 | NUR ---
RT PATIENT REC'D ORALLY INTUBATED ON [facility] VENT WITH ORDERED SETTINGS. VENT ALARMS CHECKED + AUDIBLE. PATIENT IN CRITICAL CONDITION. AMBU BAG AT HOB Addendum: 02/17/19 at 1633 by ABIMAEL TAPIA RT Amended: Links added.
[2019-02-17] MEDS: ACETYLCYSTEINE 10% SOLN 400 MG/4 ML VIAL NEB SCH ×3 (08:18→23:47)
[2019-02-17 08:56] LABS: LYMPHOCYTES % (MANUAL) 2 % (16-48); MONOCYTES % (MANUAL) 8 % (0-11.0); NEUTROPHILS % (MANUAL) 90 (42-76)
[2019-02-17] MEDS ORDERED: VANCOMYCIN 1 GM in IV D5W 250 ML IV SCH (09:00)
[2019-02-17 09:11] LABS: ABG BASE EXCESS -1.4 mmol/L; ABG OXYGEN SATURATION 96.8 % (92.0-98.5); ABG PCO2 38.1 mmHg (35.0-45.0); ABG PH 7.402 (7.350-7.450); ABG PO2 102.8 mmHg (75.0-100.0); AaDO2 138.6 mmHg; COHb 1.1 % (0.5-1.5); MetHb 1.3 % (0.0-1.5); O2Hb 94.5 % (94.0-97.0); PEEP,BG 0 cm H2O; SITE, ABG Right Radial; VT, ABG 450 mL
--- NOTE | 2019-02-17 10:00 | NUR ---
ICU/RN: Pt awake, alert, following commands, no distress noted. Able to move toes, improved decorator inspector strength prior to previous day. Hygienic care and bed bath rendered. Stool sample collected and sent to lab.
[2019-02-17 11:49] LABS: HEMOGLOBIN 5.8 g/dL (11.5-14.8)
[2019-02-17] MEDS: MICAFUNGIN SODIUM 100 MG in IV NS 0.9% 100 ML IV SCH (12:18)
[2019-02-17 12:59] LABS: OCCULT BLOOD STOOL POSITIVE (NEGATIVE)
--- NOTE | 2019-02-17 13:00 | NUR ---
ICU/RN: Dr Griffin notified of + OBS. Pending blood transfusion.
--- NOTE | 2019-02-17 14:30 | NUR ---
ICU/RN: Pt seen by ID, updated on drainage, labs, pt afebrile. Will cont to monitor pt.
--- NOTE | 2019-02-17 15:53 | NUR ---
ICU/RN: Called blood bank to f/u blood; per lab, it is not ready yet, second type and screen currently ongoing. Lab to call once blood is available.
--- NOTE | 2019-02-17 19:30 | NUR ---
MACHINING MANAGER NOTE PT RECEIVED ORALLY INTUBATED WITH 7.5 ETT SECURED@ 22 CM ON MECHANICAL VENT W/ NOTED SETTINGS PER MD ORDER. PT IS AWAKE AND ALERT ABLE TO FOLLOW COMMANDS.. VENT ALARMS CHECKED, VENT PLUGGED INTO RED OUTLET, AMBU BAG AT BEDSIDE. PT SUCTIONED. NG TUBE NOTED TO BE CLAMPED. DRAIN VAC REPRESSURIZED. PATIENT DENIES DISCOMFORT AT THIS TIME. ETT PATENT AND SECURED. YARD ASSISTANT CUFF PRESSURE NOTED. NO RESPIRATORY DISTRESS NOTED AT THIS TIME . WILL CONTINUE TO MONITOR THE PT.
--- NOTE | 2019-02-17 19:33 | NUR ---
ICU/RN: 1st unit PRBC complete. No adverse reaction noted. CT with serous drainage, no new output from R davol drain. Dressings C/D/I. Bedside report given to oncoming nurse for SHRUTHI.
--- NOTE | 2019-02-17 20:11 | NUR ---
SIMULATION TECHNICIAN NOTE SECOND UNIT OF BLOOD STARTED TRANSFUSING PER MD ORDER. NO S/S OF ADVERSE REACTION. RN WILL CONTINUE TO MONITOR.
--- NOTE | 2019-02-17 20:22 | NUR ---
RECEIVED PT INTUBATED ON VENT. 7.5 ETT SECURED AT 22CM AT THE LIP. NO RESP DISTRESS NOTED. PT IS AWAKE. SX'D FOR SML AMT OF THIN WHITE SECRETIONS. VENT ALARMS SET AND AUDIBLE. AMBU BAG AT BEDSIDE. WILL CONTINUE TO MONITOR. Addendum: 02/17/19 at 2022 by NIURKA GUERRERO RT Amended: Links added.
[2019-02-17] MEDS: MORPHINE SULFATE INJ 2 MG/ML DISP.SYRIN IV PRN (21:08)
[2019-02-18] VITALS (48 sets, daily range): BP systolic 95–150; BP diastolic 48–81
[2019-02-18] MEDS: MEROPENEM 500 MG in IV NS 0.9% 50 ML IV SCH ×3 (00:30→23:46)
[2019-02-18] MEDS: METOCLOPRAMIDE HCL 10 MG/2 ML VIAL IV SCH ×5 (00:30→23:45)
[2019-02-18] MEDS: BLOOD SUGAR DIAGNOSTIC 1 EACH STRIP IN SCH ×6 (01:28→21:12)
[2019-02-18] MEDS: IPRATROPIUM NEB FS 0.5 MG/2.5 ML AMPUL.NEB NEB SCH ×6 (03:14→23:20)
[2019-02-18] MEDS: IV D5/ 0.9% NACL 1,000 ML IV PRN ×2 (04:05→16:43)
--- NOTE | 2019-02-18 04:15 | NUR ---
DIRECTOR INTERNAL CONTROL NOTE PATIENT C/O PAIN AFTER CHANGING AND BATHING POST BOWEL MOVEMENT, MORPHINE 2MG GIVEN PER MD PRN ORDER. Addendum: 02/18/19 at 0442 by SOM ORTIZ RN Amended: Links added.
[2019-02-18] MEDS: MORPHINE SULFATE INJ 2 MG/ML DISP.SYRIN IV PRN (04:45)
[2019-02-18 04:56] LABS: BASOPHILS % (AUTO) 0.2 % (0.0-2.0); EOSINOPHILS % (AUTO) 0.5 % (0.0-6.0); HEMATOCRIT 25 % (33-45); HEMOGLOBIN 8.2 g/dL (11.5-14.8); LYMPHOCYTES # (AUTO) 0.7 /CMM (0.8-4.8); MEAN CORPUSCULAR HGB CONC 33 g/dl (31.0-36.0); MEAN CORPUSCULAR VOLUME 90 fL (82-100); MONOCYTES # (AUTO) 0.8 /CMM (0.1-1.30); MONOCYTES % (AUTO) 4.6 % (2.0-12.0); NEUTROPHILS # (AUTO) 16.5 /CMM (1.8-8.9); NEUTROPHILS % (AUTO) 90.7 % (43.0-81.0); PLATELET COUNT (AUTO) 69 /CMM (150-450); WHITE BLOOD COUNT (AUTO) 18.2 K/uL (4.3-11.0)
[2019-02-18 04:58] LABS: CARBON DIOXIDE 21 mmol/L (21-32); CHLORIDE 107 mmol/L (98-107); CREATININE 4.2 mg/dL (0.6-1.3); GLUCOSE 93 mg/dL (74-106); POTASSIUM 4.6 mmol/L (3.5-5.1); SODIUM SERUM 140 mmol/L (136-145); UREA NITROGEN, BLOOD 79 mg/dL (7-18)
[2019-02-18] MEDS: TIGECYCLINE 50 MG in IV D5W 50 ML IV SCH ×2 (05:02→16:26)
--- NOTE | 2019-02-18 05:27 | NUR ---
COMPUTER LAB PARA PROFESSIONAL NOTE RN AWARE OF CRITICAL LAB OF PLATELET COUNT OF 69. REDRAWING CBC VIA PERIPHERAL STAT Addendum: 02/18/19 at 0529 by SOM ORTIZ RN VIA MD ORDER Addendum: 02/18/19 at 0624 by SOM ORTIZ RN REDRAW WAS ABNORMAL, MD NOTIFIED, CANCEL 3RD REDRAW PER MD ORDER.
[2019-02-18 06:26] LABS: LYMPHOCYTES % (MANUAL) 3 % (16-48); MONOCYTES % (MANUAL) 4 % (0-11.0); NEUTROPHILS % (MANUAL) 92 (42-76); REACTIVE LYMPHOCYTES 1 % (0-0)
--- NOTE | 2019-02-18 07:30 | NUR ---
RECEIVED PATIENT FROM RN. PATIENT RESTING COMFORTABLY. ETT IN PLACE WITH VENT SETTINGS PER ORDER AND TOLERATING WELL NO SOB, DIFFICULTY BREATHING OR PAIN NOTED. OGT IN PLACE AND CLAMPED; PATENT AND CORRECT PLACEMENT VERIFIED. FLORES CATH TO GRAVITY AND PATENT. IV SITE C/D/I/P WITH IVF RUNNING PER MD ORDER. LEFT CHEST TUBE IN PLACE AND OCCLUSIVE DRESSING INTACT WITH CLEAR YELLOW DRAINAGE. RIGHT PIGTAIL IN PLACE WITH ACCORDION DRAINAGE BAG IN PLACE. DRESSING IN PLACE AND CLEAN. PATIENT AWAKE, FOLLOWING COMMANDS, MOVING ALL EXTREMITIES. SAFETY, SKIN, ASPIRATION PRECAUTIONS IN PLACE AND WILL MONITOR.
[2019-02-18] MEDS: ACETYLCYSTEINE 10% SOLN 400 MG/4 ML VIAL NEB SCH ×3 (07:56→23:20)
--- NOTE | 2019-02-18 07:57 | NUR ---
RT Pt received orally intubated with with a 7.5 ETT secured at 22cm at the lip line. Pt is awake and alert. Vent alarms are set and audible with BVM by bedside. PLANT GUIDE cuff pressure noted. Vent is plugged into red outlet. No respiratory distress noted at this time. Addendum: 02/18/19 at 0818 by PRUDENCE DOMÍNGUEZ RT Amended: Links added.
[2019-02-18] MEDS: PROSOURCE / PROSTAT (PYXIS) 30 ML UDC GT SCH ×2 (08:26→16:13)
[2019-02-18] MEDS: ASCORBIC ACID 500 MG TABLET PO SCH (08:26)
[2019-02-18] MEDS: Z GUARD REMEDY 2 OZ OINT TP SCH (08:26)
[2019-02-18] MEDS: MULTIVITAMINS,THERAGRAN 1 UDTAB TABLET PO SCH (08:26)
[2019-02-18] MEDS: HYDROGEL DRESSING 90 GM TUBE TP SCH (08:27)
[2019-02-18] MEDS: NYSTATIN TOP POWDER 15 GM BOTTLE TP SCH (08:28)
[2019-02-18] MEDS: IV NS 0.9% 250 ML IV PRN (08:28)
[2019-02-18 09:28] LABS: ABG BASE EXCESS -5.6 mmol/L; ABG PH 7.334 (7.350-7.450); ABG PO2 84.3 mmHg (75.0-100.0); AaDO2 157.2 mmHg; COHb 0.6 % (0.5-1.5); MetHb 0.7 % (0.0-1.5); O2Hb 93.8 % (94.0-97.0); PEEP,BG 0 cm H2O; SITE, ABG Right Radial; VT, ABG 450 mL
--- NOTE | 2019-02-18 09:30 | NUR ---
PATIENT LEFT FINGERTIPS ARE BLUE, WEAK PULSES FELT. COOL EXTREMITY. WARM BLANKET PROVIDED. WILL MONITOR AND NOTIFY
--- NOTE | 2019-02-18 09:45 | NUR ---
DR FISHER AT BEDSIDE. MD UPDATED ON ALL LABS AND PATIENT CONDITION. MORE ALERT AND AWAKE TODAY. NOTIFIED MD PATIENT LEFT FINGERTIPS ARE BLUE COLOR AND COOL HAND. PULSE PRESENT BUT WEAK. PER MD PLEASE ORDER VENOUS AND ARTERIAL DOPPLER OF LEFT UPPER EXTREMITY.
--- NOTE | 2019-02-18 10:00 | NUR ---
PER DR FISHER PLEASE HOLD PATIENT TUBE FEEDING OB IS POSITIVE FOR BLOOD.
--- NOTE | 2019-02-18 10:51 | NUR ---
LEFT FINGERTIPS IMPROVED IN COLOR. PENDING DUPLEX'S
[2019-02-18] MEDS: MICAFUNGIN SODIUM 100 MG in IV NS 0.9% 100 ML IV SCH (13:35)
[2019-02-18] MEDS: HYDROCODONE/APAP 5/325MG 1 EACH TABLET PO PRN (16:27)
[2019-02-18] MEDS: Z GUARD REMEDY 2 OZ OINT TP PRN (16:27)
--- NOTE | 2019-02-18 18:44 | NUR ---
ALL DUE MEDS GIVEN AND ALL NEEDS MET. PATIENT RESTING COMFORTABLY. ETT IN PLACE WITH VENT SETTINGS PER ORDER AND TOLERATING WELL NO SOB, DIFFICULTY BREATHING OR PAIN NOTED. OGT IN PLACE AND CLAMPED; PATENT AND CORRECT PLACEMENT VERIFIED. FLORES CATH TO GRAVITY UNDER 300ML OUTPUT. IV SITE C/D/I/P WITH IVF RUNNING PER MD ORDER. LEFT CHEST TUBE IN PLACE AND OCCLUSIVE DRESSING INTACT. [facility] CHANGED STERILE PROCEDURE AND PRESSURE MAINTAINED NO ADVERSE CONDITIONS NOTED. TOTAL OF 430 ML OUTPUT FROM LEFT CHEST TUBE. RIGHT PIGTAIL DRESSING IN PLACE AND CLEAN. 10ML OUTPUT ONLY FROM THIS SITE. PATIENT AWAKE, FOLLOWING COMMANDS, MOVING ALL EXTREMITIES. REFUSING MORPHINE AT THIS TIME FOR ANY PAIN HOWEVER RESTING COMFORTABLY S/P NORCO. SAFETY, SKIN, ASPIRATION PRECAUTIONS IN PLACE AND MONITORED THROUGHOUT DAY.
--- NOTE | 2019-02-18 20:08 | NUR ---
RECEIVED PT INTUBATED ON VENT. 7.5 ETT SECURED AT 22CM AT THE LIP. NO RESP DISTRESS NOTED. SX'D FOR SML AMT OF THIN WHITE SECRETIONS. VENT ALARMS SET AND AUDIBLE. AMBU BAG AT BEDSIDE. WILL CONTINUE TO MONITOR. Addendum: 02/18/19 at 2009 by NIURKA GUERRERO RT Amended: Links added.
[2019-02-19] VITALS (49 sets, daily range): BP systolic 99–157; BP diastolic 48–83
[2019-02-19] MEDS: BLOOD SUGAR DIAGNOSTIC 1 EACH STRIP IN SCH ×6 (01:02→21:40)
[2019-02-19] MEDS: IPRATROPIUM NEB FS 0.5 MG/2.5 ML AMPUL.NEB NEB SCH ×6 (03:29→23:22)
[2019-02-19 05:07] LABS: BASOPHILS # (AUTO) 0.1 /CMM (0.0-0.2); BASOPHILS % (AUTO) 0.7 % (0.0-2.0); EOSINOPHILS % (AUTO) 0.7 % (0.0-6.0); HEMATOCRIT 26 % (33-45); HEMOGLOBIN 8.6 g/dL (11.5-14.8); LYMPHOCYTES # (AUTO) 0.6 /CMM (0.8-4.8); LYMPHOCYTES % (AUTO) 3.6 % (20.0-44.0); MEAN CORPUSCULAR HGB CONC 33 g/dl (31.0-36.0); MEAN CORPUSCULAR VOLUME 90 fL (82-100); MONOCYTES # (AUTO) 0.9 /CMM (0.1-1.30); MONOCYTES % (AUTO) 5.7 % (2.0-12.0); NEUTROPHILS # (AUTO) 14.6 /CMM (1.8-8.9); NEUTROPHILS % (AUTO) 89.3 % (43.0-81.0); PLATELET COUNT (AUTO) 74 /CMM (150-450); RED BLOOD CELL COUNT(AUTO) 2.93 MIL/uL (4.0-5.2); WHITE BLOOD COUNT (AUTO) 16.3 K/uL (4.3-11.0)
[2019-02-19] MEDS: METOCLOPRAMIDE HCL 10 MG/2 ML VIAL IV SCH ×3 (05:07→17:08)
[2019-02-19] MEDS: TIGECYCLINE 50 MG in IV D5W 50 ML IV SCH ×2 (05:07→17:47)
[2019-02-19] MEDS: IV D5/ 0.9% NACL 1,000 ML IV PRN ×2 (05:20→17:44)
[2019-02-19 05:25] LABS: CALCIUM, SERUM 7.8 mg/dL (8.5-10.1); CARBON DIOXIDE 22 mmol/L (21-32); CHLORIDE 107 mmol/L (98-107); CREATININE 4.4 mg/dL (0.6-1.3); GLUCOSE 95 mg/dL (74-106); POTASSIUM 4.4 mmol/L (3.5-5.1); SODIUM SERUM 140 mmol/L (136-145)
[2019-02-19 05:54] LABS: UREA NITROGEN, BLOOD 84 mg/dL (7-18)
--- NOTE | 2019-02-19 07:15 | NUR ---
RECEIVED PATIENT FROM RN. PATIENT RESTING COMFORTABLY. ETT IN PLACE WITH VENT SETTINGS PER ORDER AND TOLERATING WELL NO SOB, DIFFICULTY BREATHING OR PAIN NOTED. OGT IN PLACE AND CLAMPED; PATENT AND CORRECT PLACEMENT VERIFIED. FLORES CATH TO GRAVITY AND PATENT. IV SITE C/D/I/P WITH IVF RUNNING PER MD ORDER. LEFT CHEST TUBE IN PLACE AND OCCLUSIVE DRESSING INTACT WITH CLEAR YELLOW DRAINAGE; PER RN 370ML OUTPUT FROM LEFT CHEST TUBE. RIGHT PIGTAIL IN PLACE WITH ACCORDION DRAINAGE BAG IN PLACE; PATENT AND NO DRAINAGE NOTED PER RN WITH DRESSING IN PLACE AND CLEAN. PATIENT AWAKE TO LIGHT TOUCH, FOLLOWING COMMANDS, MOVING ALL EXTREMITIES. SAFETY, SKIN, ASPIRATION PRECAUTIONS IN PLACE AND WILL MONITOR.
[2019-02-19 07:32] LABS: ABG BASE EXCESS -5.8 mmol/L; ABG OXYGEN SATURATION 97.5 % (92.0-98.5); ABG PH 7.331 (7.350-7.450); ABG PO2 122.6 mmHg (75.0-100.0); AaDO2 118.9 mmHg; COHb 0.4 % (0.5-1.5); O2Hb 96.1 % (94.0-97.0); SITE, ABG Right Radial
[2019-02-19] MEDS: ACETYLCYSTEINE 10% SOLN 400 MG/4 ML VIAL NEB SCH ×3 (07:58→23:22)
[2019-02-19] MEDS: HYDROGEL DRESSING 90 GM TUBE TP SCH (08:00)
[2019-02-19] MEDS: MULTIVITAMINS,THERAGRAN 1 UDTAB TABLET PO SCH (08:00)
[2019-02-19] MEDS: PROSOURCE / PROSTAT (PYXIS) 30 ML UDC GT SCH ×2 (08:00→17:08)
[2019-02-19] MEDS: ASCORBIC ACID 500 MG TABLET PO SCH (08:00)
[2019-02-19] MEDS: Z GUARD REMEDY 2 OZ OINT TP SCH (08:00)
[2019-02-19] MEDS: HYDROCODONE/APAP 5/325MG 1 EACH TABLET PO PRN ×2 (08:01→18:34)
[2019-02-19] MEDS: NYSTATIN TOP POWDER 15 GM BOTTLE TP SCH (08:01)
[2019-02-19] MEDS: IV NS 0.9% 250 ML IV PRN (08:02)
--- NOTE | 2019-02-19 09:17 | NUR ---
PER DR ELLIS PLEASE HAVE GI EVAL PATIENT TO RULE OUT ESOPHAGEAL PERFORATION. DR PATEL ANALYSIS OR RESEARCH SAFETY INSPECTOR [phone]
[2019-02-19] MEDS: MEROPENEM 500 MG in IV NS 0.9% 50 ML IV SCH (12:06)
[2019-02-19] MEDS: MICAFUNGIN SODIUM 100 MG in IV NS 0.9% 100 ML IV SCH (13:35)
[2019-02-19] MEDS: Z GUARD REMEDY 2 OZ OINT TP PRN (17:08)
--- NOTE | 2019-02-19 18:14 | NUR ---
DR JONES AT BEDSIDE FOR HD CATH PLACEMENT
--- NOTE | 2019-02-19 18:27 | NUR ---
dr rouse read chest x and states hd cath ready to use
--- NOTE | 2019-02-19 18:34 | NUR ---
all due meds given and all needs met. patient nods yes to pain s/p hd cath insertion and nods yes to wanting norco. tolerating vent settings no sob, difficulty breathing. iv sites c/d/i/p with ivf running per md order. hd cath in place and pending first hd treatment. rivera cath to gravity with 200ml output. left chest tube intact and patent with 380ml output. no drainage from right pigtail and dressing intact and patent. safety, skin, aspiration precautions all in place and monitored. care will be endorsed to rn for dimitri.
--- NOTE | 2019-02-19 19:11 | NUR ---
called lab again to f/u on hep panel. told we would receive a fax earlier but have not yet. stated he will call and f/u
--- NOTE | 2019-02-19 20:25 | NUR ---
RECEIVED PT INTUBATED ON VENT. 7.5 ETT SECURED AT 22CM AT THE LIP. NO RESP DISTRESS NOTED. SX'D FOR SML AMT OF THIN WHITE SECRETIONS. VENT ALARMS SET AND AUDIBLE. AMBU BAG AT BEDSIDE. WILL CONTINUE TO MONITOR. Addendum: 02/19/19 at 2024 by NIURKA GUERRERO RT Amended: Links added.
[2019-02-20] VITALS (36 sets, daily range): BP systolic 100–155; BP diastolic 55–87
[2019-02-20] MEDS: MEROPENEM 500 MG in IV NS 0.9% 50 ML IV SCH ×2 (00:01→13:09)
[2019-02-20] MEDS: BLOOD SUGAR DIAGNOSTIC 1 EACH STRIP IN SCH ×6 (00:14→22:29)
[2019-02-20] MEDS: HYDROCODONE/APAP 5/325MG 1 EACH TABLET PO PRN (00:14)
[2019-02-20] MEDS: IPRATROPIUM NEB FS 0.5 MG/2.5 ML AMPUL.NEB NEB SCH ×6 (03:32→23:41)
[2019-02-20 04:57] LABS: BASOPHILS # (AUTO) 0.1 /CMM (0.0-0.2); BASOPHILS % (AUTO) 0.6 % (0.0-2.0); EOSINOPHILS % (AUTO) 0.7 % (0.0-6.0); HEMATOCRIT 27 % (33-45); HEMOGLOBIN 8.6 g/dL (11.5-14.8); LYMPHOCYTES # (AUTO) 0.7 /CMM (0.8-4.8); LYMPHOCYTES % (AUTO) 3.7 % (20.0-44.0); MEAN CORPUSCULAR HGB CONC 32 g/dl (31.0-36.0); MEAN CORPUSCULAR VOLUME 91 fL (82-100); MONOCYTES % (AUTO) 5.7 % (2.0-12.0); NEUTROPHILS # (AUTO) 15.9 /CMM (1.8-8.9); NEUTROPHILS % (AUTO) 89.3 % (43.0-81.0); PLATELET COUNT (AUTO) 57 /CMM (150-450); RED BLOOD CELL COUNT(AUTO) 2.93 MIL/uL (4.0-5.2); WHITE BLOOD COUNT (AUTO) 17.8 K/uL (4.3-11.0)
[2019-02-20] MEDS: TIGECYCLINE 50 MG in IV D5W 50 ML IV SCH ×2 (05:01→17:25)
[2019-02-20] MEDS: METOCLOPRAMIDE HCL 10 MG/2 ML VIAL IV SCH ×4 (05:03→17:14)
[2019-02-20 05:07] LABS: CALCIUM, SERUM 7.9 mg/dL (8.5-10.1); CARBON DIOXIDE 23 mmol/L (21-32); CHLORIDE 109 mmol/L (98-107); CREATININE 4.5 mg/dL (0.6-1.3); GLUCOSE 97 mg/dL (74-106); POTASSIUM 4.5 mmol/L (3.5-5.1); SODIUM SERUM 139 mmol/L (136-145)
[2019-02-20 05:08] LABS: UREA NITROGEN, BLOOD 94 mg/dL (7-18)
[2019-02-20] MEDS: IV D5/ 0.9% NACL 1,000 ML IV PRN ×2 (06:24→17:29)
[2019-02-20 06:49] LABS: LYMPHOCYTES % (MANUAL) 5 % (16-48); MONOCYTES % (MANUAL) 5 % (0-11.0); NEUTROPHILS % (MANUAL) 90 (42-76)
--- NOTE | 2019-02-20 07:10 | NUR ---
RN INITIAL NOTES: Rec'd pt awake on bed, not in any distress, A/O x 1, follow simple commands. On MV via ETT, sating at 100%. On telemonitor, SR. Has OGT, clamped at this time, NPO except meds. Has LCW subclavian HD cath intact. Has CECILIO PICC line w/ D5NS 80 cc/hr infusing well. Has FC draining to BSB. Has L CT, level 1200cc, noted intermittent air bubbling (dressing reinforced). Has R pigtail w/ grayish DC, level 100cc. Safety precaution in place w/ bed in lowest & locked pos. Call light w/in reach. Will cont to monitor & attend pt needs. Per report, pt is sched to have HD today.
[2019-02-20] MEDS: ACETYLCYSTEINE 10% SOLN 400 MG/4 ML VIAL NEB SCH ×3 (08:30→23:41)
[2019-02-20] MEDS: ASCORBIC ACID 500 MG TABLET PO SCH (09:07)
[2019-02-20] MEDS: PROSOURCE / PROSTAT (PYXIS) 30 ML UDC GT SCH ×2 (09:08→17:00)
[2019-02-20] MEDS: MULTIVITAMINS,THERAGRAN 1 UDTAB TABLET PO SCH (09:08)
[2019-02-20] MEDS: HYDROGEL DRESSING 90 GM TUBE TP SCH (09:13)
[2019-02-20] MEDS: Z GUARD REMEDY 2 OZ OINT TP SCH (09:13)
[2019-02-20] MEDS: NYSTATIN TOP POWDER 15 GM BOTTLE TP SCH (09:13)
--- NOTE | 2019-02-20 09:20 | NUR ---
Pt seen & examined by Dr. Clarke. Discussed w/ the pt w/ son at bedside re: planned Tracheostomy. ordered to secure consent. Addendum: 02/20/19 at 1156 by SHARITA JOSEPH RN [id number] Consent for Tracheostomy placement & anesthesia was signed by pt's son Marcos, placed in the chart.
[2019-02-20] MEDS: INSULIN REGULAR, HUMAN 100 UNIT/ML 3 ML VIAL SQ PRN ×3 (09:25→17:21)
--- NOTE | 2019-02-20 10:15 | NUR ---
Pt seen & examined by Dr. Griffin.
--- NOTE | 2019-02-20 13:00 | NUR ---
Initial HD done c/o Franck RN. Pt tolerated the procedure. No output taken.
[2019-02-20] MEDS: MICAFUNGIN SODIUM 100 MG in IV NS 0.9% 100 ML IV SCH (13:13)
--- NOTE | 2019-02-20 15:30 | NUR ---
Noted large continuous drainage coming out from R anterior chest, dark brownish in color, Dr. Clarke made aware w/ orders to apply pressure dressing. Also informed Dr. Clarke, re: coffee ground output from OGT. Per MD, to start pt on Protonix 40mg BID IVP and connect OGT to LIS. Follow up GI paper production engineer for consult.
--- NOTE | 2019-02-20 16:00 | NUR ---
Dr. Valentine informed about GI consult. updated about pt status & condition.
--- NOTE | 2019-02-20 17:05 | NUR ---
Pt seen & examined by Dr. Valentine. made aware about the coffee ground output & the large drainage from the R ant chest sx site. Per , okay for Protonix 40 mg IVP BID, okay to start GTF, no sx intervention at this time.
[2019-02-20] MEDS: PANTOPRAZOLE 40 MG VIAL IV SCH (17:14)
--- NOTE | 2019-02-20 18:30 | NUR ---
Noted soaked dressing on the R anterior chest again. Area cleansed & pressure dressing applied as ordered. However, despite of the pressure dressing applied still some brownish DC coming out.
--- NOTE | 2019-02-20 18:38 | NUR ---
RT END OF THE SHIFT REPORT, PT. 83 Y OLD FEMALE REC. IN AM PT. ORALLY INTUBATED ETT # 7.5 @22 CM LIP LINE ON VENT WITH NOTED SETTINGS, NO CHANGES T/O DAY AND PT. REMAIN STABLE, AWAKE AND RESPONSIVE. B/S BILATERALLY RALES, SUX'D FOR MINIMAL/AMT AMT THICK YELLOW SECRETIONS, TX'S GIVEN INLINE, NO ADVERSE REACTION NOTED. ORDER SELECTOR DONE, EQUAL CHEST RISE NOTED, HME CHANGED, VENT PLUGGED INTO RED OUT LET. AMBU BAG REMAIN AT THE BEDSIDE. REPORT WILL PASS TO PM SHIFT. Addendum: 02/20/19 at 1840 by MIGUELINA MENDEZ RT Amended: Links added.
--- NOTE | 2019-02-20 18:48 | NUR ---
RN CLOSING NOTES: Pt resting comfortably on bed, not in any distress. Tolerating MV settings via ETT, sating at 100%. On telemonitor, remains SR. OGT, connected to LIS d/t coffee ground DC. LCW subclavian HD cath intact, HD done today w/ no output taken. CECILIO PICC line w/ D5NS 80 cc/hr infusing well. FC draining to BSB. L CT, level 1650cc. R pigtail w/ grayish DC, no change w/ level 100cc. Safety precaution kept in place w/ bed in lowest & locked pos. Call light w/in reach. Will endorse to PM RN for SHRUTHI.
--- NOTE | 2019-02-20 19:40 | NUR ---
RN NOTES RECEIVED PT AWAKE ON BED ORALLY INTUBATED WITH ETT 7.5 AD 22 CM AT LIP CONNECTED TO VENT SETTING AC 16 TV 450 FIO2 40% NO PEEP. ABLE OT EXPRESSED FEELINGS. NSR ON TELE MONITOR. NO ACUTE RESPIRATORY DISTRESS. PATIENT WITH CHEST TUBE VENT SETTING TOLERATED WELL. OGT ON LIS WITH BLOODY OUTPUT. NPO AT THIS TI,E IV SITE ON CECILIO PICC LINE WITH D5NS @ 80 ML.HR INTACT AND PATENT LCW HD CATH CLEANED AND DRY. F/C DRAINED WITH YELLOW COLOR URINE. KEPT PT CLEAN AND DRY WILL CONTINUE TO MONITOR.
[2019-02-21] VITALS (45 sets, daily range): BP systolic 99–145; BP diastolic 57–79
[2019-02-21] MEDS: BLOOD SUGAR DIAGNOSTIC 1 EACH STRIP IN SCH ×6 (00:13→20:42)
[2019-02-21] MEDS: METOCLOPRAMIDE HCL 10 MG/2 ML VIAL IV SCH ×5 (00:13→23:48)
[2019-02-21] MEDS: IPRATROPIUM NEB FS 0.5 MG/2.5 ML AMPUL.NEB NEB SCH ×6 (03:34→23:26)
[2019-02-21 04:18] LABS: BASOPHILS # (AUTO) 0.1 /CMM (0.0-0.2); BASOPHILS % (AUTO) 0.7 % (0.0-2.0); EOSINOPHILS % (AUTO) 0.5 % (0.0-6.0); HEMATOCRIT 25 % (33-45); HEMOGLOBIN 8.2 g/dL (11.5-14.8); LYMPHOCYTES # (AUTO) 0.8 /CMM (0.8-4.8); LYMPHOCYTES % (AUTO) 4.1 % (20.0-44.0); MEAN CORPUSCULAR HGB CONC 33 g/dl (31.0-36.0); MEAN CORPUSCULAR VOLUME 89 fL (82-100); MONOCYTES # (AUTO) 1.2 /CMM (0.1-1.30); MONOCYTES % (AUTO) 6.2 % (2.0-12.0); NEUTROPHILS # (AUTO) 16.8 /CMM (1.8-8.9); NEUTROPHILS % (AUTO) 88.5 % (43.0-81.0); RED BLOOD CELL COUNT(AUTO) 2.81 MIL/uL (4.0-5.2)
[2019-02-21 04:35] LABS: CALCIUM, SERUM 7.5 mg/dL (8.5-10.1); CARBON DIOXIDE 26 mmol/L (21-32); CHLORIDE 110 mmol/L (98-107); CREATININE 3.7 mg/dL (0.6-1.3); GLUCOSE 102 mg/dL (74-106); POTASSIUM 4.3 mmol/L (3.5-5.1); SODIUM SERUM 143 mmol/L (136-145); UREA NITROGEN, BLOOD 75 mg/dL (7-18)
[2019-02-21 04:52] LABS: PLATELET COUNT (AUTO) 46 /CMM (150-450)
[2019-02-21 05:00] LABS: NEUTROPHILS % (MANUAL) 96 (42-76)
[2019-02-21 05:01] LABS: LYMPHOCYTES % (MANUAL) 1 % (16-48); MONOCYTES % (MANUAL) 3 % (0-11.0)
[2019-02-21] MEDS: TIGECYCLINE 50 MG in IV D5W 50 ML IV SCH ×2 (05:24→17:08)
[2019-02-21] MEDS: DEXTROSE 50%-WATER 50 ML DISP.SYRIN IV PRN (05:32)
[2019-02-21] MEDS: IV D5/ 0.9% NACL 1,000 ML IV PRN ×2 (05:34→17:10)
--- NOTE | 2019-02-21 07:12 | NUR ---
RN INITIAL NOTES: Rec'd pt awake on bed, not in any distress, A/O x 1, follows simple commands. On MV via ETT, sating at 100%. On telemonitor, SR. Has OGT connected to LIS, w/ coffee ground output. Has LCW subclavian HD cath, w/ ongoing HD c/o Ahmed. Has CECILIO PICC line w/ D5NS 80 cc/hr infusing well. Has FC draining to BSB. Has L CT, level 400cc, still noted intermittent air bubbling (dressing reinforced). Has R pigtail w/ grayish DC, level did not changed from yesterday w/ 100cc. Safety precaution in place w/ bed in lowest & locked pos. Call light w/in reach. Will cont to monitor & attend pt needs.
--- NOTE | 2019-02-21 07:15 | NUR ---
RN NOTES PATIENT REMAINED IN STABLE CONDITION. NO CHANGE OF MENTAL STATUS ORALLY INTUBATED VENT SETTING TOLERATED WELL. CHEST TUBE AND PIGTAIL TOLERATED WELL. NO CHEST PAIN PRESENT . PT COMPLAINING OF PAIN THROUGHOUT THE BODY BUT REFUSED TO TAKE PAIN IV MORPHINE WHEN OFFERED. UNABLE TO GIVE PAIN MEDICINE YANCY GT DUE TO GT IS IN LIS. AFEBRILE. VSS WITHOUT PRESSORS. IV SITE INTACT AND PATENT WITH ONGOING IVF. BS AT 6 AM 60 MG/DL PRN MEDICINE GIVEN ORDER LATEST BS +153 MG/DL. FAMILY AT BEDSIDE. PATIENT STARTED HD AT THIS TIME. ENDORSED CONTINUITY OF CARE TO AM NURSE.
[2019-02-21] MEDS: ACETYLCYSTEINE 10% SOLN 400 MG/4 ML VIAL NEB SCH ×3 (07:38→23:26)
--- NOTE | 2019-02-21 08:45 | NUR ---
Pt seen & examined by Dr. Clarke & updated about pt condition & status.
[2019-02-21] MEDS: MULTIVITAMINS,THERAGRAN 1 UDTAB TABLET PO SCH ×2 (08:48→09:00)
[2019-02-21] MEDS: ASCORBIC ACID 500 MG TABLET PO SCH ×2 (08:48→09:00)
[2019-02-21] MEDS: PROSOURCE / PROSTAT (PYXIS) 30 ML UDC GT SCH ×3 (08:48→17:06)
[2019-02-21] MEDS: PANTOPRAZOLE 40 MG VIAL IV SCH ×2 (08:48→17:06)
[2019-02-21] MEDS: HYDROGEL DRESSING 90 GM TUBE TP SCH (08:49)
[2019-02-21] MEDS: NYSTATIN TOP POWDER 15 GM BOTTLE TP SCH (08:50)
[2019-02-21] MEDS: Z GUARD REMEDY 2 OZ OINT TP SCH (08:50)
--- NOTE | 2019-02-21 09:00 | NUR ---
Pt seen & examined by Dr. Griffin.
[2019-02-21] MEDS: INSULIN REGULAR, HUMAN 100 UNIT/ML 3 ML VIAL SQ PRN ×3 (09:16→17:35)
[2019-02-21] MEDS: MEROPENEM 500 MG in IV NS 0.9% 50 ML IV SCH (12:23)
[2019-02-21] MEDS: MICAFUNGIN SODIUM 100 MG in IV NS 0.9% 100 ML IV SCH (12:23)
[2019-02-21] MEDS: JEVITY 1.2 CAL 1,000 ML BOTTLE GT PRN (12:24)
--- NOTE | 2019-02-21 18:22 | NUR ---
RN CLOSING NOTES: Pt resting comfortably on bed, not in any distress. Tolerating MV settings via ETT, sating at 100%. On telemonitor, remains SR. OGT, to cont GTF Jevity 1.2 x 30cc/hr, no residual noted w/in shift. LCW subclavian HD cath intact, HD done today w/ no output taken. CECILIO PICC line w/ D5NS 80 cc/hr infusing well. FC draining to BSB. L CT, level 800cc. R pigtail w/ grayish DC, level 150cc. Pt turned out + for AFB smear - Dr. Owen made aware & ordered to place pt on Airborne precaution. Monica GARRETT RN also aware. Safety precaution kept in place w/ bed in lowest & locked pos. Call light w/in reach. Will endorse to PM RN for SHRUTHI.
[2019-02-21] MEDS ORDERED: NEPRO 1,000 ML BOTTLE GT PRN (18:30)
--- NOTE | 2019-02-21 19:00 | NUR ---
FILM SPLICER NOTES Received patient on Airbone Precaution(r/o AFB).Awake,alert,orally intubated to the ventilator on AC mode.Not in any distress,follows commands,moves both arms,limited movement due to generalized edema.OGT with on going feeding ,Aspiration Precaution observed,will monitor residuals. PICC line @ CECILIO ,dressing clean,dry and intact. Chest tube at left mid axillary to suction /Atrium drainage with serous drainage,tubings patent and intact. Pigtail drainage tube noted at right lateral chest to gravity drainage,intact. Noted incissional wound with staple sutures at upper right lateral(below the right breastline ) dressing dry and intact. comfort care done,needs attended.
--- NOTE | 2019-02-21 19:37 | NUR ---
PT RECEIVED ORALLY INTUBATED WITH 7.5 ETT SECURED@ 22 CM ON MECHANICAL VENT W/ NOTED SETTINGS PER MD ORDER. PT IS AWAKE ,ALERT AND NON VERBAL. VENT ALARMS CHECKED, VENT PLUGGED INTO RED OUTLET, AMBU BAG AT BEDSIDE. PT SUCTIONED AND LAVAGED PRN. BREATHING TX GIVEN PER MD ORDER, NO ADVERSE REACTION NOTED. ETT PATENT AND SECURED. DIRECTOR AUTO CUFF PRESSURE NOTED. NO RESPIRATORY DISTRESS NOTED AT THIS TIME . WILL CONTINUE TO MONITOR THE PT.
[2019-02-22] VITALS (36 sets, daily range): BP systolic 128–150; BP diastolic 63–85
--- NOTE | 2019-02-22 | NUR ---
MARKET ANALYST NOTES Remains stable,not in any distress,remains awake , alert.Chest tube intact,draining well, Pigtail tube with some drainage leakage but still draining to the drainage collection bag.Continue comfort care.
[2019-02-22] MEDS: BLOOD SUGAR DIAGNOSTIC 1 EACH STRIP IN SCH ×6 (01:05→21:45)
--- NOTE | 2019-02-22 02:30 | NUR ---
LOCKS INSPECTOR NOTES Am care done,old incision site at right lateral chest is leaking purulent drainage( creamy) . dressing changed ,site cleanse with NSS..left chest tube dressing dry ,CLEAN AND INTACT.
[2019-02-22] MEDS: IPRATROPIUM NEB FS 0.5 MG/2.5 ML AMPUL.NEB NEB SCH ×6 (03:30→23:20)
[2019-02-22 04:35] LABS: BASOPHILS # (AUTO) 0.1 /CMM (0.0-0.2); BASOPHILS % (AUTO) 0.5 % (0.0-2.0); EOSINOPHILS % (AUTO) 0.5 % (0.0-6.0); HEMATOCRIT 26 % (33-45); HEMOGLOBIN 8.7 g/dL (11.5-14.8); LYMPHOCYTES # (AUTO) 0.8 /CMM (0.8-4.8); LYMPHOCYTES % (AUTO) 4.7 % (20.0-44.0); MEAN CORPUSCULAR HGB CONC 33 g/dl (31.0-36.0); MEAN CORPUSCULAR VOLUME 89 fL (82-100); MONOCYTES # (AUTO) 1.3 /CMM (0.1-1.30); MONOCYTES % (AUTO) 7.4 % (2.0-12.0); NEUTROPHILS # (AUTO) 15.3 /CMM (1.8-8.9); NEUTROPHILS % (AUTO) 86.9 % (43.0-81.0); RED BLOOD CELL COUNT(AUTO) 2.96 MIL/uL (4.0-5.2); WHITE BLOOD COUNT (AUTO) 17.6 K/uL (4.3-11.0)
[2019-02-22 04:46] LABS: CALCIUM, SERUM 7.4 mg/dL (8.5-10.1); CARBON DIOXIDE 24 mmol/L (21-32); CHLORIDE 112 mmol/L (98-107); CREATININE 3.1 mg/dL (0.6-1.3); GLUCOSE 118 mg/dL (74-106); POTASSIUM 4.2 mmol/L (3.5-5.1); SODIUM SERUM 146 mmol/L (136-145); UREA NITROGEN, BLOOD 61 mg/dL (7-18)
[2019-02-22 05:02] LABS: PLATELET COUNT (AUTO) 50 /CMM (150-450)
[2019-02-22 05:34] LABS: LYMPHOCYTES % (MANUAL) 2 % (16-48); MONOCYTES % (MANUAL) 5 % (0-11.0); NEUTROPHILS % (MANUAL) 93 (42-76)
[2019-02-22] MEDS: TIGECYCLINE 50 MG in IV D5W 50 ML IV SCH ×2 (05:39→17:11)
[2019-02-22] MEDS: IV D5/ 0.9% NACL 1,000 ML IV PRN ×2 (05:46→21:46)
[2019-02-22] MEDS: IV NS 0.9% 250 ML IV PRN (05:46)
--- NOTE | 2019-02-22 06:00 | NUR ---
APPARATUS REPAIR MECHANIC NOTES rEMAINS STABLE,AWAKE,ALERT NOT IN ANY DISTRESS.cOMFORT CARE DONE.sSON AT BEDSIDE.
[2019-02-22] MEDS: METOCLOPRAMIDE HCL 10 MG/2 ML VIAL IV SCH ×3 (07:01→17:11)
[2019-02-22] MEDS: ACETYLCYSTEINE 10% SOLN 400 MG/4 ML VIAL NEB SCH ×3 (07:52→23:21)
--- NOTE | 2019-02-22 08:35 | NUR ---
INITIAL BLIND EYELETTER NOTE RCVD PT AWAKE AND ALERT, ABLE TO FOLLOW SIMPLE COMMANDS, INTUBATED 7.5 ETT 22 AT LIP, OFF SEDATION, TOLERATING VENT SETTINGS WELL. SR ON MONITOR. LEFT CHEST TUBE DRAINING SEROUS COLORED FLUID, RIGHT DRAIN AND DRAIN SITE WITH PURULENT BROWN/GREENISH THICK DRAINAGE. FLORES TO GRAVITY DRAINING CLEAR, YELLOW URINE. CECILIO PICC C/D/I/PATENT, NO S/O INFILTRATION/PHLEBITIS OBSERVED IVF INFUSING ORDERED. OG-TUBE PLACEMENT VERIFIED BY AUSCULTATION/ASPIRATION OF GASTRIC CONTENTS, RESIDUAL OBTAINED. WILL CONTINUE TO MONITOR PT FOR SAFETY AND COMFORT. BED IN LOW AND LOCKED POSITION. CALL LIGHT WITHIN REACH. HEAD OF BED ELEVATED. MEDICAL RECORDS PERTAINING TO THE AFB RESULTS REQUESTED FROM [facility], MEANWHILE PT ON AIRBORNE ISOLATION.
[2019-02-22] MEDS: MULTIVITAMINS,THERAGRAN 1 UDTAB TABLET PO SCH (08:53)
[2019-02-22] MEDS: PANTOPRAZOLE 40 MG VIAL IV SCH ×2 (08:53→17:11)
[2019-02-22] MEDS: ASCORBIC ACID 500 MG TABLET PO SCH (08:53)
[2019-02-22] MEDS: PROSOURCE / PROSTAT (PYXIS) 30 ML UDC GT SCH ×2 (08:53→17:11)
[2019-02-22] MEDS: DEXTROSE 50%-WATER 50 ML DISP.SYRIN IV PRN (09:09)
[2019-02-22] MEDS: NYSTATIN TOP POWDER 15 GM BOTTLE TP SCH (09:18)
[2019-02-22] MEDS: HYDROGEL DRESSING 90 GM TUBE TP SCH (09:18)
[2019-02-22] MEDS: Z GUARD REMEDY 2 OZ OINT TP SCH (09:18)
--- NOTE | 2019-02-22 10:02 | NUR ---
PT REC'D ORALLY INTUBATED VIA ETT SZ 7.5 @ 22CM AT THE LIP LINE. PT ON [facility] VENT ON NOTED SETTINGS. NO RESP DISTRESS OR SOB NOTED. SX'D FOR THICK SMALL AMT OF PALE YELLOW SECRETIONS. ALARMS ARE SET AND AUDIBLE. VENT PLUGGED INTO RED OUTLET. AMBU BAG BEDSIDE. WILL CONTINUE TO MONITOR. Addendum: 02/22/19 at 1005 by ASTON ELLIS RT Amended: Links added.
[2019-02-22] MEDS: MEROPENEM 500 MG in IV NS 0.9% 50 ML IV SCH (12:13)
[2019-02-22] MEDS: MICAFUNGIN SODIUM 100 MG in IV NS 0.9% 100 ML IV SCH (13:36)
--- NOTE | 2019-02-22 18:02 | NUR ---
PRE PRESS PROOFER NOTE PT REMAINS STABLE, SHOWING NO S/O DISTRESS, DENIES PAIN AT THIS TIME. SR ON MONITOR, TOLERATING ORDERED VENT SETTINGS. FLORES TO GRAVITY DRAINING CLEAR, YELLOW URINE, OG-TUBE PLACEMENT WITH MINIMAL RESIDUAL OBTAINED, LEFT CHEST TUBE DRAINING SEROUS FLUID, AND RIGHT CHEST DRAIN WITH PURULENT FLUID, MOST DRAINAGE FROM OLD CHEST TUBE SITE. CECILIO PICC C/D/I/PATENT, DRESSING CHANGED. PT'S CARE WILL BE ENDORSED TO DIGITAL ASSOCIATE MEDIA DIRECTOR RN FOR CONTINUITY OF CARE, BED IN LOW AND LOCKED POSITION, CALL LIGHT WITHIN REACH, HEAD OF BED ELEVATED.
--- NOTE | 2019-02-22 19:00 | NUR ---
RECEIVED PT IN NO ACUTE DISTRESS IN BED. PT IS A/O X 3 AND ABLE TO MAKE NEEDS KNOWN BY NODING YES AND NO. PT IS INTUBATED WITH ETT 7.0/22 AND ON A VENT. ETT IS CLEAN DRY AND INTACT. PT IS TOLERATING VENT SETTING @ AC 16, TV 450, FIO2 40%, PEEP 0. PT HAS OG TUBE THAT IS CLEAN DRY INTACT AND PATENT WITH NEPRO @ 45NL/HR AND TOLERATING WELL WITH 0 RESIDUALS. PT HAS LEFT CHEST TUBE THAT IS CLEAN DRY INTACT AND PATENT WITH SANGUINOUS FLUID DRAINING. PT HAS RIGHT DRAIN THAT IS CLEAN DRY INTACT AND PATENT WITH BROWN FLUID DRAINING. PT HAS F/C THAT IS CLEAN DRY INTACT AND PATENT WITH YELLOW URINE DRAINING. PT HAS LCW HD CATH THAT IS CLEAN DRY AND INTACT. PT HAS RIGHT UPPER ARM PICC LINE THAT IS CLEAN DRY INTACT AND PATENT WITH D5NS @ 80ML/HR. BED IN LOW LOCK POSITION WITH RAILS UP X 2. CALL LIGHT WITHIN REACH AND ALL SAFETY MEASURES ENSURED AND CARRIED OUT. WILL CONTINUE TO MONITOR.
--- NOTE | 2019-02-22 20:05 | NUR ---
PT RECEIVED ORALLY INTUBATED WITH 7.5 ETT SECURED@ 22 CM ON MECHANICAL VENT W/ NOTED SETTINGS PER MD ORDER. PT TOLERATING VENT SETTINGS. VENT ALARMS CHECKED, VENT PLUGGED INTO RED OUTLET, AMBU BAG AT BEDSIDE. PT SUCTIONED AND LAVAGED PRN. BREATHING TX GIVEN PER MD ORDER, NO ADVERSE REACTION NOTED. ETT PATENT AND SECURED. BEVEL GEAR GENERATOR OPERATOR CUFF PRESSURE NOTED. NO RESPIRATORY DISTRESS NOTED AT THIS TIME . WILL CONTINUE TO MONITOR THE PT.
[2019-02-23] VITALS (45 sets, daily range): BP systolic 70–153; BP diastolic 44–78
[2019-02-23] MEDS: METOCLOPRAMIDE HCL 10 MG/2 ML VIAL IV SCH ×4 (00:50→17:18)
[2019-02-23] MEDS: BLOOD SUGAR DIAGNOSTIC 1 EACH STRIP IN SCH ×6 (00:50→21:12)
[2019-02-23] MEDS: IPRATROPIUM NEB FS 0.5 MG/2.5 ML AMPUL.NEB NEB SCH ×6 (03:28→23:02)
[2019-02-23 05:03] LABS: BASOPHILS # (AUTO) 0.2 /CMM (0.0-0.2); BASOPHILS % (AUTO) 0.8 % (0.0-2.0); EOSINOPHILS % (AUTO) 0.7 % (0.0-6.0); HEMATOCRIT 26 % (33-45); HEMOGLOBIN 8.4 g/dL (11.5-14.8); LYMPHOCYTES # (AUTO) 0.9 /CMM (0.8-4.8); LYMPHOCYTES % (AUTO) 4.4 % (20.0-44.0); MEAN CORPUSCULAR HGB CONC 33 g/dl (31.0-36.0); MEAN CORPUSCULAR VOLUME 89 fL (82-100); MONOCYTES # (AUTO) 1.4 /CMM (0.1-1.30); MONOCYTES % (AUTO) 6.8 % (2.0-12.0); NEUTROPHILS # (AUTO) 17.6 /CMM (1.8-8.9); NEUTROPHILS % (AUTO) 87.3 % (43.0-81.0); PLATELET COUNT (AUTO) 68 /CMM (150-450); RED BLOOD CELL COUNT(AUTO) 2.86 MIL/uL (4.0-5.2); WHITE BLOOD COUNT (AUTO) 20.2 K/uL (4.3-11.0)
[2019-02-23] MEDS: TIGECYCLINE 50 MG in IV D5W 50 ML IV SCH ×2 (05:06→16:20)
[2019-02-23 05:08] LABS: SODIUM SERUM 145 mmol/L (136-145)
[2019-02-23 05:09] LABS: CALCIUM, SERUM 7.4 mg/dL (8.5-10.1); CARBON DIOXIDE 24 mmol/L (21-32); CHLORIDE 111 mmol/L (98-107); CREATININE 3.3 mg/dL (0.6-1.3); GLUCOSE 105 mg/dL (74-106); UREA NITROGEN, BLOOD 76 mg/dL (7-18)
[2019-02-23 06:06] LABS: LYMPHOCYTES % (MANUAL) 7 % (16-48); NEUTROPHILS % (MANUAL) 88 (42-76)
[2019-02-23 06:07] LABS: MONOCYTES % (MANUAL) 5 % (0-11.0)
--- NOTE | 2019-02-23 07:52 | NUR ---
INITIAL ADVANCED QUALITY ENGINEER NOTE RCVD PT AWAKE AND ALERT, ABLE TO FOLLOW COMMANDS, SR ON MONITOR, INTUBATED, OFF SEDATION ETT 7.5 22 AT LIP LINE, TOLERATING ORDERED VENT SETTINGS. LEFT CHEST TUBE DRAINING SEROUS FLUID, RIGHT PIGTAIL DRAIN WITH PURULENT FLUID. FLORES TO GRAVITY DRAINING CLEAR, YELLOW URINE. CECILIO PICC C/D/I/PATENT, NO S/O INFILTRATION/PHLEBITIS OBSERVED, IVF INFUSING ORDERED. LEFT SUBCLAVIAN HD ACCESS WITH CLEAN DRESSING IN PLACE. OG-TUBE PLACEMENT VERIFIED BY X-RAY THIS AM. WILL CONTINUE TO MONITOR PT FOR SAFETY AND COMFORT. BED IN LOW AND LOCKED POSITION. CALL LIGHT WITHIN REACH, HEAD OF BED ELEVATED.
[2019-02-23] MEDS: ACETYLCYSTEINE 10% SOLN 400 MG/4 ML VIAL NEB SCH ×3 (08:00→23:02)
[2019-02-23] MEDS: PROSOURCE / PROSTAT (PYXIS) 30 ML UDC GT SCH (08:56)
[2019-02-23] MEDS: ASCORBIC ACID 500 MG TABLET PO SCH (08:57)
[2019-02-23] MEDS: MULTIVITAMINS,THERAGRAN 1 UDTAB TABLET PO SCH (08:57)
[2019-02-23] MEDS: PANTOPRAZOLE 40 MG VIAL IV SCH ×2 (08:57→16:20)
[2019-02-23] MEDS: Z GUARD REMEDY 2 OZ OINT TP SCH (08:58)
[2019-02-23] MEDS: NYSTATIN TOP POWDER 15 GM BOTTLE TP SCH (08:58)
[2019-02-23] MEDS: HYDROGEL DRESSING 90 GM TUBE TP SCH (08:58)
[2019-02-23] MEDS: MEROPENEM 500 MG in IV NS 0.9% 50 ML IV SCH (12:36)
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
[2019-02-23] MEDS: IV D5/ 0.9% NACL 1,000 ML IV PRN (12:55)
--- NOTE | 2019-02-23 13:17 | NUR ---
SHERIFF DEPUTY NOTE RIGHT OLD CHEST TUBE SITE DRAINING LARGE AMOUNTS OF PURULENT FLUID, SMELLING LIKE TUBE FEED FORMULA. DR. ELLIS IN UNIT INFORMED, RECOMMENDED TO DISCONTINUE TUBE FEEDING AND OG-TUBE. RIGHT PIG TAIL DRAINAGE REMAINS PURULENT/BROWN IN COLOR.
[2019-02-23] MEDS: MORPHINE SULFATE INJ 2 MG/ML DISP.SYRIN IV PRN (13:31)
[2019-02-23] MEDS: MICAFUNGIN SODIUM 100 MG in IV NS 0.9% 100 ML IV SCH (13:34)
[2019-02-23] MEDS ORDERED: ALBUMIN 25% 25 GM in PREMIX 1 EA IV ONE (14:30)
--- NOTE | 2019-02-23 18:34 | NUR ---
MAGNET MAKER NOTE PT AWAKE AND ALERT, SHOWING NO S/O DISTRESS, INTUBATED, OFF SEDATION TOLERATING ORDERED VENT SETTINGS WELL. SR ON MONITOR. FLORES TO GRAVITY DRAINING CLEAR, YELLOW URINE, OG-TUBE DISCONTINUED PER ORDER. CECILIO PICC C/D/I/PATENT, NO S/O INFILTRATION/PHLEBITIS OBSERVED IVF INFUSING ORDERED. PT UNDERWENT DIALYSIS TODAY WITH PERIOD OF HYPOTENSION, PT RECOVERED WITH ALBUMIN. DIALYSIS ADJUSTED PER HD RN. LEFT CHEST TUBE DRAINING SEROUS FLUID, RIGHT PIGTAIL DRAIN WITH SEROUS FLUID. RIGHT OLD CHEST TUBE SITE WITH SUTURES APPEARS DRY, NO MORE PURULENT DRAINAGE OBSERVED. PT'S CARE WILL BE ENDORSED TO ENVIRONMENTAL AIDE RN FOR CONTINUITY OF CARE, BED IN LOW AND LOCKED POSITION, CALL LIGHT WITHIN REACH. HEAD OF BED ELEVATED.
--- NOTE | 2019-02-23 20:23 | NUR ---
PT REC'D ORALLY INTUBATED VIA ETT SZ 7.5 @ 22CM AT THE LIP LINE. PT ON MECHANICAL VENT WITH CHARTED SETTINGS. NO RESP DISTRESS OR SOB NOTED AT THIS TIME. SX DONE. ALARMS ARE SET AND AUDIBLE. VENT PLUGGED INTO RED OUTLET. AMBU BAG BEDSIDE. WILL CONTINUE TO MONITOR. Addendum: 02/23/19 at 2024 by CHARLETTE SCOTT RT Amended: Links added.
[2019-02-24] VITALS (36 sets, daily range): BP systolic 112–135; BP diastolic 56–72
[2019-02-24] MEDS: METOCLOPRAMIDE HCL 10 MG/2 ML VIAL IV SCH ×4 (00:22→17:01)
[2019-02-24] MEDS: BLOOD SUGAR DIAGNOSTIC 1 EACH STRIP IN SCH ×6 (00:22→21:39)
[2019-02-24] MEDS: DEXTROSE 50%-WATER 50 ML DISP.SYRIN IV PRN (00:39)
[2019-02-24] MEDS: IV D5/ 0.9% NACL 1,000 ML IV PRN ×2 (01:30→17:01)
[2019-02-24] MEDS: IPRATROPIUM NEB FS 0.5 MG/2.5 ML AMPUL.NEB NEB SCH ×6 (02:46→23:17)
[2019-02-24 04:35] LABS: BASOPHILS # (AUTO) 0.1 /CMM (0.0-0.2); BASOPHILS % (AUTO) 0.4 % (0.0-2.0); EOSINOPHILS % (AUTO) 1.3 % (0.0-6.0); HEMATOCRIT 22 % (33-45); HEMOGLOBIN 7.3 g/dL (11.5-14.8); LYMPHOCYTES # (AUTO) 0.9 /CMM (0.8-4.8); LYMPHOCYTES % (AUTO) 5.2 % (20.0-44.0); MEAN CORPUSCULAR HGB CONC 33 g/dl (31.0-36.0); MEAN CORPUSCULAR VOLUME 88 fL (82-100); MONOCYTES # (AUTO) 1.2 /CMM (0.1-1.30); MONOCYTES % (AUTO) 7.1 % (2.0-12.0); NEUTROPHILS # (AUTO) 14.8 /CMM (1.8-8.9); RED BLOOD CELL COUNT(AUTO) 2.49 MIL/uL (4.0-5.2); WHITE BLOOD COUNT (AUTO) 17.3 K/uL (4.3-11.0)
[2019-02-24 04:46] LABS: PLATELET COUNT (AUTO) 43 /CMM (150-450)
[2019-02-24 04:49] LABS: CALCIUM, SERUM 7.5 mg/dL (8.5-10.1); CARBON DIOXIDE 25 mmol/L (21-32); CHLORIDE 110 mmol/L (98-107); CREATININE 2.5 mg/dL (0.6-1.3); GLUCOSE 102 mg/dL (74-106); POTASSIUM 3.9 mmol/L (3.5-5.1); SODIUM SERUM 143 mmol/L (136-145); UREA NITROGEN, BLOOD 59 mg/dL (7-18)
[2019-02-24] MEDS: TIGECYCLINE 50 MG in IV D5W 50 ML IV SCH ×2 (05:06→17:00)
[2019-02-24] MEDS: MORPHINE SULFATE INJ 2 MG/ML DISP.SYRIN IV PRN ×3 (06:08→17:10)
[2019-02-24 06:09] LABS: BAND % (MANUAL) 2 % (0.0-5.0); EOSINOPHILS % (MANUAL) 2 % (0-4); LYMPHOCYTES % (MANUAL) 1 % (16-48); MONOCYTES % (MANUAL) 4 % (0-11.0); NEUTROPHILS % (MANUAL) 91 (42-76)
--- NOTE | 2019-02-24 07:06 | NUR ---
PT REMAINS IN NO ACUTE DISTRESS IN BED. PT DID NOT HAVE ANY SIGNIFICANT CHANGE IN CONDITION DURING SHIFT. ALL NEEDS MET, ALL ORDERS CARRIED OUT. PT TOLERATED VENT SETTING WELL. RIGHT CHEST WALL DRAIN DRAINING WELL. LEFT CHEST TUBE DRAINING WELL. WILL ENDORSE CARE TO AM RN FOR CONTINUITY OF CARE.
[2019-02-24] MEDS: ACETYLCYSTEINE 10% SOLN 400 MG/4 ML VIAL NEB SCH ×3 (07:22→23:17)
--- NOTE | 2019-02-24 08:11 | NUR ---
INITIAL COMPLIANCE MANAGER NOTE RCVD PT AWAKE AND ALERT, ABLE TO FOLLOW COMMANDS, SR ON MONITOR, TOLERATING ORDERED VENT SETTINGS WELL. LEFT CHEST TUBE DRAINING SEROUS FLUID, RIGHT PIGTAIL DRAIN WITH YELLOW, THICK, COLORED FLUID OBSERVED IN TUBING. NO DRAINAGE FROM OLD RIGHT CHEST TUBE SITE OBSERVED. FLORES TO GRAVITY DRAINING CLEAR, YELLOW URINE CECILIO PICC C/D/I/PATENT. NO S/O INFILTRATION/PHLEBITIS OBSERVED IVF INFUSING ORDERED. LEFT SVC HD ACCESS DRESSING REMAINS C/D/I. WILL CONTINUE TO MONITOR PT FOR SAFETY AND COMFORT. BED IN LOW AND LOCKED POSITION. CALL LIGHT WITHIN REACH. HEAD OF BED ELEVATED.
[2019-02-24] MEDS: PANTOPRAZOLE 40 MG VIAL IV SCH ×2 (08:33→17:00)
[2019-02-24] MEDS: HYDROGEL DRESSING 90 GM TUBE TP SCH (09:02)
[2019-02-24] MEDS: Z GUARD REMEDY 2 OZ OINT TP SCH (09:02)
[2019-02-24] MEDS: NYSTATIN TOP POWDER 15 GM BOTTLE TP SCH (09:02)
[2019-02-24 09:38] LABS: ABG BASE EXCESS -1.2 mmol/L; ABG OXYGEN SATURATION 97.4 % (92.0-98.5); ABG PCO2 39.2 mmHg (35.0-45.0); ABG PH 7.395 (7.350-7.450); ABG PO2 105.7 mmHg (75.0-100.0); AaDO2 206.7 mmHg; COHb 0.2 % (0.5-1.5); MetHb 0.9 % (0.0-1.5); O2Hb 96.3 % (94.0-97.0); PEEP,BG 5 cm H2O; SITE, ABG Left Radial; VT, ABG 500 mL
[2019-02-24 10:47] LABS: D-DIMER 30.3 mg/L(FEU (0.17-0.50)
--- NOTE | 2019-02-24 10:53 | NUR ---
STITCHING MACHINE OPERATOR NOTE DR. FISHER INFORMED ABOUT PT'S DIC PANEL RESULTS. NO NEW ORDERS RCVD.
[2019-02-24] MEDS: MEROPENEM 500 MG in IV NS 0.9% 50 ML IV SCH (11:43)
[2019-02-24] MEDS: MICAFUNGIN SODIUM 100 MG in IV NS 0.9% 100 ML IV SCH (12:52)
[2019-02-24] MEDS: IV NS 0.9% 250 ML IV PRN (17:03)
--- NOTE | 2019-02-24 19:13 | NUR ---
VOLUNTEER MANAGER NOTE PT REMAINS AWAKE AND ALERT, FOLLOWING COMMANDS, SR ON MONITOR, PAIN MANAGED WITH IV MORPHINE. LEFT CHEST TUBE DRAINING SEROUS FLUID, RIGHT PIGTAIL DRAIN WITH YELLOW, THICK COLORED FLUID. SMALL AMOUNT OF GREEN, THICK, MUCUS APPEARING DRAINAGE FROM OLD RIGHT CHEST TUBE SITE WITH STITCHES. FLORES TO GRAVITY DRAINING CLEAR, YELLOW URINE. CECILIO PICC C/D/I/PATENT, AND HD ACCESS DRESSING C/D/I. PT REMAINS NPO DUE TO POSSIBLE ESOPHAGEAL PERFORATION. DR. PATEL UPDATED ON PT'S CONDITION AND YESTERDAY'S EVENT OF STOPPING TUBE FEEDING AND TUBE FEED SMELLING DRAINAGE FROM THE RIGHT SITE, MD ORDERED FISTULOGRAM. RADIOLOGY CALLED SPOKE WITH IRIS WHO'S WAITING FOR ANOTHER TECH TO CHECK THE ORDER TO PROCEED. PT UPDATED ON PROCEDURE. PT'S CARE WILL BE ENDORSED TO ORGANIC CHEMIST RN FOR CONTINUITY OF CARE. BED IN LOW AND LOCKED POSITION. CALL LIGHT WITHIN REACH.
--- NOTE | 2019-02-24 19:30 | NUR ---
ACQUISITION MANAGER NOTE PT RECEIVED ASLEEP BUT EASILY AROUSABLE TO NAME. ALERT AND ABLE TO NOD HEAD FOR YES AND NO. ON MECH VENT WITH SETTINGS WELL TOLERATED AND SATURATING WELL. BREATHING UNLABORED. HOB ELEVATED AND ON ASPIRATION PRECAUTIONS. ISOLATION PRECAUTIONS OBSERVED. IV CECILIO PICC CLEAN AND DRY WITH FLUIDS INFUSING. LEFT SUBCLAVIAN HD SITE CLEAN AND DRY. LEFT CHEST TUBE IN PLACE AND DRAINING SEROUS FLUID. RIGHT PIGTAIL DRAINING THICK YELLOW/GREEN FLUID. OLD CHEST TUBE SITE CLEAN AND DRY WITH ABD PAD AT THIS TIME. FLORES CATHETER IN PLACE AND DRAINING BY GRAVITY. WILL CONTINUE TO MONITOR.
--- NOTE | 2019-02-24 19:54 | NUR ---
PT REC'D ORALLY INTUBATED VIA ETT SZ 7.5 @ 22CM AT THE LIP LINE. PT ON MECHANICAL VENT WITH CHARTED SETTINGS. NO RESP DISTRESS OR SOB NOTED AT THIS TIME. SX DONE. ALARMS ARE SET AND AUDIBLE. VENT PLUGGED INTO RED OUTLET. AMBU BAG BEDSIDE. WILL CONTINUE TO MONITOR. Addendum: 02/24/19 at 1953 by TRAVIS ARRIAZA RT Amended: Links added.
--- NOTE | 2019-02-24 21:00 | NUR ---
SUPERVISOR TOY PARTS FORMER NOTE SPOKE WITH RADIOLOGIST REGARDING CLARIFICATION FOR FISTULOGRAM SINUS TRACT EXAM ORDERED. RADIOLOGIST EXPLAINED THAT PROCEDURE NEEDS TO BE PERFORMED UNDER FLUOROSCOPY WITH RADIOLOGIST. SPOKE WITH IRIS IN RADIOLOGY ABOUT CLARIFICATION. SHE SAID PROCEDURE WOULD BE PERFORMED ON TUESDAY.
[2019-02-25] VITALS (35 sets, daily range): BP systolic 101–142; BP diastolic 50–92
[2019-02-25] MEDS: BLOOD SUGAR DIAGNOSTIC 1 EACH STRIP IN SCH ×6 (00:25→21:04)
[2019-02-25] MEDS: METOCLOPRAMIDE HCL 10 MG/2 ML VIAL IV SCH ×4 (00:25→17:21)
[2019-02-25] MEDS: IPRATROPIUM NEB FS 0.5 MG/2.5 ML AMPUL.NEB NEB SCH ×6 (02:32→23:17)
[2019-02-25 04:48] LABS: BASOPHILS # (AUTO) 0.1 /CMM (0.0-0.2); BASOPHILS % (AUTO) 0.7 % (0.0-2.0); HEMATOCRIT 23 % (33-45); HEMOGLOBIN 7.6 g/dL (11.5-14.8); LYMPHOCYTES # (AUTO) 0.6 /CMM (0.8-4.8); LYMPHOCYTES % (AUTO) 3.9 % (20.0-44.0); MEAN CORPUSCULAR HGB CONC 33 g/dl (31.0-36.0); MEAN CORPUSCULAR VOLUME 88 fL (82-100); MONOCYTES # (AUTO) 1.1 /CMM (0.1-1.30); MONOCYTES % (AUTO) 7.5 % (2.0-12.0); NEUTROPHILS # (AUTO) 13.1 /CMM (1.8-8.9); NEUTROPHILS % (AUTO) 85.9 % (43.0-81.0); PLATELET COUNT (AUTO) 60 /CMM (150-450); RED BLOOD CELL COUNT(AUTO) 2.64 MIL/uL (4.0-5.2); WHITE BLOOD COUNT (AUTO) 15.2 K/uL (4.3-11.0)
[2019-02-25 04:59] LABS: CALCIUM, SERUM 7.4 mg/dL (8.5-10.1); CARBON DIOXIDE 25 mmol/L (21-32); CHLORIDE 109 mmol/L (98-107); CREATININE 2.7 mg/dL (0.6-1.3); GLUCOSE 95 mg/dL (74-106); MAGNESIUM 1.6 mg/dL (1.8-2.4); PHOSPHORUS 4.9 mg/dL (2.5-4.9); POTASSIUM 3.8 mmol/L (3.5-5.1); SODIUM SERUM 141 mmol/L (136-145); UREA NITROGEN, BLOOD 62 mg/dL (7-18)
[2019-02-25] MEDS: TIGECYCLINE 50 MG in IV D5W 50 ML IV SCH ×2 (05:12→17:22)
[2019-02-25] MEDS ORDERED: EPOETIN ALFA (10,000 UNIT) 10,000 UNIT/ML VIAL SQ ONE (06:00)
[2019-02-25 06:11] LABS: BAND % (MANUAL) 4 % (0.0-5.0); LYMPHOCYTES % (MANUAL) 3 % (16-48); MONOCYTES % (MANUAL) 6 % (0-11.0); NEUTROPHILS % (MANUAL) 87 (42-76)
[2019-02-25] MEDS: IV D5/ 0.9% NACL 1,000 ML IV PRN ×2 (07:02→21:05)
[2019-02-25] MEDS: ACETYLCYSTEINE 10% SOLN 400 MG/4 ML VIAL NEB SCH ×3 (07:12→23:17)
--- NOTE | 2019-02-25 07:30 | NUR ---
RN NOTES RECEIVED PATIENT ON MECH VENT WITH BREATHING NORMAL, EVEN AND UNLABORED. NO SOB NOTED. NO ACUTE DISTRESS NOTED. TELE MONITOR REVEALS SR, HR 86. CECILIO PICC LINE IS PATENT AND INTACT, RUNNING IVF PER ORDER. F/C IS PATENT AND INTACT, DRAINING WITH GRAVITY. LCW HD CATH IS INTACT. L CHEST TUBE IS INTACT, R CHEST PIGTAIL CATH IS INTACT. KEPT CLEAN, DRY AND COMFORTABLE. ALL NEEDS ATTENDED. SAFETY MEASURE OBSERVED. CALL LIGHT WITH IN REACH. FAMILY AT BEDSIDE. WILL CONT TO MONITOR.
--- NOTE | 2019-02-25 07:37 | NUR ---
TOOL AND EQUIPMENT RENTAL CLERK NOTE PT REMAINED STABLE DURING SHIFT. NO ACUTE DISTRESS NOTED. VENT SETTINGS WELL TOLERATED AND ETT IN PLACE. SUCTIONED NEEDED. REPOSITIONED Q2H. ALL NEEDS ATTENDED TO PROMPTLY. KEPT CLEAN AND DRY. ISOLATION PRECAUTIONS OBSERVED. WILL ENDORSE TO NEXT SHIFT FOR CONTINUITY OF CARE.
[2019-02-25] MEDS: PANTOPRAZOLE 40 MG VIAL IV SCH ×2 (09:51→17:21)
[2019-02-25] MEDS: NYSTATIN TOP POWDER 15 GM BOTTLE TP SCH (09:55)
[2019-02-25] MEDS: HYDROGEL DRESSING 90 GM TUBE TP SCH (09:55)
[2019-02-25] MEDS: Z GUARD REMEDY 2 OZ OINT TP SCH (09:55)
[2019-02-25] MEDS ORDERED: Magnesium 1GM/D5W 100ML PREMIX 100 ML IV SCH (10:00)
[2019-02-25] MEDS ORDERED: ALBUMIN 25% 12.5 GM in PREMIX 1 EA IV ONE ×2 (11:30→13:00)
[2019-02-25] MEDS: Magnesium 1GM/D5W 100ML PREMIX 100 ML IV SCH ×2 (12:22→12:30)
--- NOTE | 2019-02-25 12:32 | NUR ---
RN NOTES PATIENT RECEIVED MAGNESIUM 1G IN AM PER ORDER OF DR FISHER. CLARIFY NEW ORDER TO REPLACE MAGNESIUM 2G . RECEIVED ORDER TO REPLACE ONLY 1G PER ORDER OF DR MCHUGH,ORDER NOTED AND CARRIED OUT. WILL CONT TO MONITOR.
[2019-02-25] MEDS: MICAFUNGIN SODIUM 100 MG in IV NS 0.9% 100 ML IV SCH (14:44)
[2019-02-25] MEDS: MEROPENEM 500 MG in IV NS 0.9% 50 ML IV SCH (17:22)
--- NOTE | 2019-02-25 18:20 | NUR ---
RT NOTE PT REMAINS MECHANICALLY VENTILATED VIA 7.5 ETT 22 CM AT LIP. CUFF INFLATED. ETT SECURE. VENTILATOR SETTINGS PRESCRIBED. ALARMS SET PER PROTOCOL AND AUDIBLE. VENT PLUGGED IN TO RED OUTLET. AMBU BAG AT BED SIDE. PT AWAKE AND ALERT. NO DISTRESS NOTED. Addendum: 02/25/19 at 1821 by MART VERDUZCO RT Amended: Links added.
--- NOTE | 2019-02-25 19:04 | NUR ---
RN NOTES PATIENT ENDORSED TO NEXT SHIFT IN STABLE CONDITION FOR CONTINUITY OF CARE. NO SIGNIFICANT CHANGES NOTED. KEPT CLEAN, DRY AND COMFORTABLE. ALL NEEDS ATTENDED. SAFETY MEASURE OBSERVED. CALL LIGHT WITH IN REACH. WILL CONT TO MONITOR.
--- NOTE | 2019-02-25 19:30 | NUR ---
MANAGER BASKETBALL NOTE PT RECEIVED AWAKE. ALERT AND ABLE TO NOD HEAD FOR YES AND NO. ON MECH VENT WITH SETTINGS WELL TOLERATED AND SATURATING WELL. BREATHING UNLABORED. HOB ELEVATED AND ON ASPIRATION PRECAUTIONS. ISOLATION PRECAUTIONS OBSERVED. IV CECILIO PICC CLEAN AND DRY WITH FLUIDS INFUSING. LEFT CHEST TUBE IN PLACE AND DRAINING SEROUS FLUID. RIGHT PIGTAIL DRAINING THICK YELLOW/GREEN FLUID. FLORES CATHETER IN PLACE AND DRAINING BY GRAVITY. WILL CONTINUE TO MONITOR.
[2019-02-26] VITALS (42 sets, daily range): BP systolic 93–150; BP diastolic 52–100
[2019-02-26] MEDS: METOCLOPRAMIDE HCL 10 MG/2 ML VIAL IV SCH ×4 (00:29→17:24)
[2019-02-26] MEDS: BLOOD SUGAR DIAGNOSTIC 1 EACH STRIP IN SCH ×6 (00:29→21:30)
[2019-02-26] MEDS: IPRATROPIUM NEB FS 0.5 MG/2.5 ML AMPUL.NEB NEB SCH ×6 (03:13→23:25)
[2019-02-26 04:59] LABS: BASOPHILS # (AUTO) 0.1 /CMM (0.0-0.2); BASOPHILS % (AUTO) 0.6 % (0.0-2.0); EOSINOPHILS % (AUTO) 2.8 % (0.0-6.0); LYMPHOCYTES # (AUTO) 0.7 /CMM (0.8-4.8); LYMPHOCYTES % (AUTO) 6.2 % (20.0-44.0); MEAN CORPUSCULAR HGB CONC 32 g/dl (31.0-36.0); MEAN CORPUSCULAR VOLUME 92 fL (82-100); NEUTROPHILS # (AUTO) 9.3 /CMM (1.8-8.9); NEUTROPHILS % (AUTO) 81.4 % (43.0-81.0); PLATELET COUNT (AUTO) 59 /CMM (150-450); RED BLOOD CELL COUNT(AUTO) 2.16 MIL/uL (4.0-5.2); WHITE BLOOD COUNT (AUTO) 11.5 K/uL (4.3-11.0)
[2019-02-26] MEDS: TIGECYCLINE 50 MG in IV D5W 50 ML IV SCH ×2 (05:24→17:59)
[2019-02-26 05:33] LABS: HEMATOCRIT 20 % (33-45); HEMOGLOBIN 6.4 g/dL (11.5-14.8)
[2019-02-26 05:46] LABS: LYMPHOCYTES % (MANUAL) 4 % (16-48); MONOCYTES % (MANUAL) 8 % (0-11.0); NEUTROPHILS % (MANUAL) 86 (42-76)
[2019-02-26 05:47] LABS: EOSINOPHILS % (MANUAL) 2 % (0-4)
[2019-02-26 06:00] LABS: CALCIUM, SERUM 7.2 mg/dL (8.5-10.1); CARBON DIOXIDE 25 mmol/L (21-32); CHLORIDE 107 mmol/L (98-107); CREATININE 2.3 mg/dL (0.6-1.3); GLUCOSE 99 mg/dL (74-106); POTASSIUM 3.9 mmol/L (3.5-5.1); SODIUM SERUM 141 mmol/L (136-145); UREA NITROGEN, BLOOD 48 mg/dL (7-18)
--- NOTE | 2019-02-26 06:45 | NUR ---
GENERAL FREIGHT AGENT NOTE NO ACUTE DISTRESS NOTED. VENT SETTINGS WELL TOLERATED. SUCTIONED NEEDED. ALL NEEDS ATTENDED TO PROMPTLY. ISOLATION PRECAUTIONS OBSERVED. REPOSITIONED Q2H. NOTIFIED DENTAL LABORATORY TECHNICIAN APPRENTICE DR BORRERO FOR H/H 6.03/17 WITH ORDERS TO GIVE 1 UNIT PRBC. ORDERS NOTED AND CARRIED OUT. WILL ENDORSE TO NEXT SHIFT FOR CONTINUITY OF CARE.
[2019-02-26] MEDS: ACETYLCYSTEINE 10% SOLN 400 MG/4 ML VIAL NEB SCH ×3 (06:48→23:25)
--- NOTE | 2019-02-26 07:30 | NUR ---
IT TRAINER OPENING NOTE RECEIVED REPORT FROM PM NURSE.PT AWAKE. ALERT AND ABLE TO NOD HEAD FOR YES AND NO. ON MECH VENT WITH TOLERATING SETTINGS ORDERED AND SATURATING WELL. BREATHING UNLABORED. HOB ELEVATED AND ON ASPIRATION PRECAUTIONS. ISOLATION PRECAUTIONS OBSERVED. IV CECILIO PICC CLEAN AND DRY WITH FLUIDS INFUSING. LEFT CHEST TUBE IN PLACE AND DRAINING SEROUS FLUID. RIGHT PIGTAIL DRAINING THICK YELLOW/GREEN FLUID. FLORES CATHETER IN PLACE AND DRAINING BY GRAVITY. BED IS LOW AND IN LOCKED POSITION.CALL LIGHT IN REACH.SIDE RAILS X3.WILL CONTINUE TO MONITOR.
[2019-02-26] MEDS: PANTOPRAZOLE 40 MG VIAL IV SCH ×2 (08:50→16:49)
[2019-02-26] MEDS: HYDROGEL DRESSING 90 GM TUBE TP SCH (09:08)
[2019-02-26] MEDS: NYSTATIN TOP POWDER 15 GM BOTTLE TP SCH (09:08)
[2019-02-26] MEDS: Z GUARD REMEDY 2 OZ OINT TP SCH (09:09)
[2019-02-26] MEDS: IV D5/ 0.9% NACL 1,000 ML IV PRN (10:49)
--- NOTE | 2019-02-26 11:00 | NUR ---
BARREL LATHE OPERATOR INSIDE NOTE SEEN BY ID TAY CARPENTER TO D/C ISOLATION.SPOKE TO .WANT TO KEEP ISOLATION.WAITING FOR CULTURE FROM [facility].
--- NOTE | 2019-02-26 12:00 | NUR ---
DIAMOND SAW OPERATOR NOTE SEEN BY ,VERIFIED ABOUT CHEST TUBE FUNCTION ,ASKED TO MILK TUBE.DRAINING SEROUS YELLOW FLUID.SEEN BY ,UPDATED ABOUT PATIENT CONDITION .WAITING FOR BED AVAILABILITY AND CALL FROM SURGEON AT [facility].
--- NOTE | 2019-02-26 12:00 | NUR ---
MANAGER CLIENT NOTE SPOKE TO STEVE,WAITING FOR DIALYSIS TO GIVE BLOOD TRANSFUSION.
[2019-02-26] MEDS: MICAFUNGIN SODIUM 100 MG in IV NS 0.9% 100 ML IV SCH (12:21)
--- NOTE | 2019-02-26 13:59 | NUR ---
ELECTROENCEPHALOGRAPHIC TECHNICIAN NOTE SEEN BY ,UPDATED ABOUT PATIENT CONDITION WITH N0 DRAINAGE FROM R PIGTAIL ,PUSS COMING OUT FROM OLD SITE.GOT ORDER FOR FISTULOGRAM.CALL MADE TO SON SANDEEP,GOT CONSENT FOR PROCEDURE.OK TO TAKE PATIENT OUT FOR PROCEDURE PER ,GARCIA ID.SURGICAL MASK FOR PATIENT AND N 95 FOR TRANSPORTERS. RADIOLOGY MADE AWARE.WILL CONTINUE TO MONITOR.
[2019-02-26] MEDS ORDERED: IOHEXOL 50 ML IV ONE (14:06)
--- NOTE | 2019-02-26 15:45 | NUR ---
SOLICITOR PATENT NOTE PATIENT OUT FOR FISTULOGRAM [id number]
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
--- NOTE | 2019-02-26 17:00 | NUR ---
RN NOTES RECEIVED FROM HAILY , CONTINUE TO MONITOR , PT RECEIVING HD AT THIS TIME ,1700 IV ABX WILL BE GIVEN AFTER HD .
--- NOTE | 2019-02-26 17:05 | NUR ---
SENIOR SQL SERVER DBA NOTE REPOST GIVEN TO POLI VELEZ FOR SHRUTHI.ENDORSED TO F/U WITH CULTURE REPORT FOR FROM [facility] IN THE CHART.
--- NOTE | 2019-02-26 17:15 | NUR ---
RN NOTES PT RECEIVED ONE UNIT OF PRBC WITH HD
[2019-02-26] MEDS: MEROPENEM 500 MG in IV NS 0.9% 50 ML IV SCH (18:06)
--- NOTE | 2019-02-26 18:35 | NUR ---
RT END OF THE SHIFT REPORT, PT. 83 YEARS OLD FEMALE REC. IN AM 0700 PT. IN AWAKE AND ORALLY INTUBATED ETT # 7.5 @22 CM LIP LINE ON VENT WITH NOTED SETTINGS, NO CHANGES T/O DAY AND PT. REMAIN STABLE, AWAKE AND RESPONSIVE. B/S BILATERALLY RALES, SUX'D FOR MINIMAL/AMT AMT THICK YELLOW SECRETIONS, TX'S GIVEN INLINE, NO ADVERSE REACTION NOTED. TOOL DRESSER DONE, EQUAL CHEST RISE NOTED, HME CHANGED, VENT PLUGGED INTO RED OUT LET. AMBU BAG REMAIN AT THE BEDSIDE. REPORT WILL PASS TO PM SHIFT. Addendum: 02/26/19 at 1836 by MIGUELINA MENDEZ RT Amended: Links added.
--- NOTE | 2019-02-26 18:51 | NUR ---
RN NOTES NO SIGNIFICANT CHANGES NOTED ON THIS SHIFT
--- NOTE | 2019-02-26 19:00 | NUR ---
PATIENT ADMITTING REPRESENTATIVE NOTE RECEIVED REPORT FROM AM RN, PT IS RESTING WITH HOB ELEVATED, ABLE TO NOD HEAD YES OR NO, NO S/SX OF CARDIAC OR RESPIRATORY DISTRESS, ON MECHANICAL VENT ON SETTINGS ORDERED, AIRBORNE PRECAUTIONS OBSERVED, LEFT CHEST TUBE IN PLACE DRAINING YELLOW FLUID, RIGHT PIGTAIL IN PLACE, NO NOTED FLUID AT THIS TIME, FLORES CATHETER DRAINING TO GRAVITY, CECILIO PICC WITH D5NS AT 80 ML/HR PATENT FLUSHING WELL, SITE IS CLEAN DRY, LCW HD CATHETER, DRESSING INTACT, CLEAN AND DRY, SAFETY MAINTAINED AT ALL TIMES, BED IN LOW LOCKED POSITION, CALL LIGHT WITHIN REACH, WILL CONTINUE TO MONITOR FOR ANY CHANGES IN CONDITION.
--- NOTE | 2019-02-26 20:32 | NUR ---
RECEIVED PT INTUBATED 7.5 ETT AT 22CM AT THE LIP. PT IS AWAKE NO RESP DISTRESS NOTED. PT TOLERATING VENT SETTINGS. SX'D FOR SML AMT OF THIN WHITE SECRETIONS. VENT ALARMS SET AND AUDIBLE. AMBU BAG AT BEDSIDE. WILL CONTINUE TO MONITOR. Addendum: 02/26/19 at 2033 by NIURKA GUERRERO RT Amended: Links added.
[2019-02-27] VITALS (51 sets, daily range): BP systolic 109–149; BP diastolic 57–95
[2019-02-27] MEDS: BLOOD SUGAR DIAGNOSTIC 1 EACH STRIP IN SCH ×6 (00:30→21:21)
[2019-02-27] MEDS: METOCLOPRAMIDE HCL 10 MG/2 ML VIAL IV SCH ×4 (00:30→17:07)
[2019-02-27] MEDS: IPRATROPIUM NEB FS 0.5 MG/2.5 ML AMPUL.NEB NEB SCH ×6 (03:34→23:58)
[2019-02-27] MEDS: IV D5/ 0.9% NACL 1,000 ML IV PRN ×2 (03:50→16:20)
[2019-02-27 04:52] LABS: BASOPHILS # (AUTO) 0.1 /CMM (0.0-0.2); BASOPHILS % (AUTO) 0.7 % (0.0-2.0); EOSINOPHILS % (AUTO) 2.4 % (0.0-6.0); HEMATOCRIT 27 % (33-45); HEMOGLOBIN 8.9 g/dL (11.5-14.8); LYMPHOCYTES # (AUTO) 1.1 /CMM (0.8-4.8); LYMPHOCYTES % (AUTO) 6.3 % (20.0-44.0); MEAN CORPUSCULAR HGB CONC 33 g/dl (31.0-36.0); MEAN CORPUSCULAR VOLUME 88 fL (82-100); MONOCYTES # (AUTO) 1.4 /CMM (0.1-1.30); NEUTROPHILS # (AUTO) 14.6 /CMM (1.8-8.9); NEUTROPHILS % (AUTO) 82.6 % (43.0-81.0); WHITE BLOOD COUNT (AUTO) 17.7 K/uL (4.3-11.0)
[2019-02-27 05:04] LABS: CALCIUM, SERUM 7.3 mg/dL (8.5-10.1); CARBON DIOXIDE 29 mmol/L (21-32); CHLORIDE 109 mmol/L (98-107); CREATININE 2.1 mg/dL (0.6-1.3); GLUCOSE 97 mg/dL (74-106); POTASSIUM 3.7 mmol/L (3.5-5.1); SODIUM SERUM 143 mmol/L (136-145); UREA NITROGEN, BLOOD 39 mg/dL (7-18)
[2019-02-27 05:09] LABS: PLATELET COUNT (AUTO) 42 /CMM (150-450)
[2019-02-27] MEDS: TIGECYCLINE 50 MG in IV D5W 50 ML IV SCH ×2 (05:15→16:10)
[2019-02-27 05:46] LABS: EOSINOPHILS % (MANUAL) 4 % (0-4); LYMPHOCYTES % (MANUAL) 4 % (16-48); MONOCYTES % (MANUAL) 5 % (0-11.0); NEUTROPHILS % (MANUAL) 87 (42-76)
--- NOTE | 2019-02-27 06:38 | NUR ---
PARTS IDENTIFICATION TECHNICIAN NOTE RECEIVED CRITICAL LAB VALUE PLT 42 FROM 59, SPOKE WITH DR REDDY MATRIX SUPERVISOR, NO NEW ORDERS GIVEN.
[2019-02-27 07:08] LABS: COMPLEMENT C3, SERUM 30 mg/dL (82-167); COMPLEMENT C4, SERUM 9 mg/dL (14-44)
--- NOTE | 2019-02-27 07:10 | NUR ---
RN NOTE RECEIVED PT ON BED, INTUBATED, ALERT, ABLE TO NOD HEAD FOR YES OR NO QUESTIONS ,ORAL AND ET SUCTIONING, TOLERATING CURRENT VENT SETTING WELL, LEFT CHEST TUBE IN PLACE DRAINING YELLOW FLUID, RIGHT PIGTAIL IN PLACE, NO NOTED FLUID AT THIS TIME, FLORES CATHETER DRAINING TO GRAVITY, CECILIO PICC SITE CELAN, DRY AND INTACT, WITH D5NS AT 80 ML/HR RUNNING , L CW HD CATHETER, DRESSING INTACT, CLEAN AND DRY, SAFETY MAINTAINED AT ALL TIMES, BED IN LOWEST POSITION AND LOCKED, CALL LIGHT WITHIN EASY REACH, WILL CONTINUE TO MONITOR .
[2019-02-27] MEDS: ACETYLCYSTEINE 10% SOLN 400 MG/4 ML VIAL NEB SCH ×3 (08:23→23:58)
[2019-02-27] MEDS: Z GUARD REMEDY 2 OZ OINT TP SCH (08:28)
[2019-02-27] MEDS: HYDROGEL DRESSING 90 GM TUBE TP SCH (08:28)
[2019-02-27] MEDS: PANTOPRAZOLE 40 MG VIAL IV SCH ×2 (08:28→17:07)
[2019-02-27] MEDS: NYSTATIN TOP POWDER 15 GM BOTTLE TP SCH (08:30)
--- NOTE | 2019-02-27 10:00 | NUR ---
RN NOTES DR ELLIS NOTIFED REGARDING TB RESULTS FROM [facility]. ISOLATION D/MAXX PER MD ORDER.
--- NOTE | 2019-02-27 13:00 | NUR ---
RN NOTES SUPPORTIVE SON AT THE BEDSIDE, VSS STABLE , CONTINUE TO MONITOR .
[2019-02-27] MEDS: MICAFUNGIN SODIUM 100 MG in IV NS 0.9% 100 ML IV SCH (13:15)
[2019-02-27] MEDS: MEROPENEM 500 MG in IV NS 0.9% 50 ML IV SCH (17:07)
--- NOTE | 2019-02-27 18:00 | NUR ---
RN NOTES NO SIGNFICANT CHANGES NOTED ON THIS SHIFT, WILL ENDORSE TO MOBILE HOMES REPAIRER NURSE FOR CONTINUITY OF CARE .
--- NOTE | 2019-02-27 18:24 | NUR ---
RT END OF THE SHIFT REPORT, PT. 83 YEARS OLD FEMALE REC. IN AM 0700 PT. IS AWAKE AND ORALLY INTUBATED ETT # 7.5 @22 CM LIP LINE ON VENT WITH NOTED SETTINGS, NO CHANGES T/O DAY AND PT. REMAIN STABLE, AWAKE AND RESPONSIVE. B/S BILATERALLY RALES, SUX'D FOR MINIMAL/AMT AMT THICK YELLOW SECRETIONS, TX'S GIVEN INLINE, NO ADVERSE REACTION NOTED. AUTOMOTIVE DIAGNOSTIC TECHNICIAN DONE, EQUAL CHEST RISE NOTED, HME CHANGED, VENT PLUGGED INTO RED OUT LET. AMBU BAG REMAIN AT THE BEDSIDE. REPORT WILL PASS TO PM SHIFT. Addendum: 02/27/19 at 1825 by MIGUELINA MENDEZ RT Amended: Links added.
--- NOTE | 2019-02-27 19:00 | NUR ---
NURSING DIRECTOR NOTES Received patient awake,orally intubated on AC mode,not in any distress,seems to understand,follows simple commands.Moves both arms but weak , right arm noted to be more edematous.lower extremities extremely edematous.Chest tube on left lateral/mid axillary to 20 mmHG suction via Atrium drainage with serous,clear drainage.Right Pigtail drain tube to vacuum collection bag with creamy looking /abscess drainage. All dressing intact. HD catheter @ left subclavian with dressing dry and intact. comfort care done,needs attended.
--- NOTE | 2019-02-27 20:25 | NUR ---
RECEIVED PT INTUBATED 7.5 ETT AT 22CM AT THE LIP. PT IS AWAKE NO RESP DISTRESS NOTED. PT TOLERATING VENT SETTINGS. SX'D FOR SML AMT OF THIN WHITE SECRETIONS. VENT ALARMS SET AND AUDIBLE. AMBU BAG AT BEDSIDE. WILL CONTINUE TO MONITOR. Addendum: 02/27/19 at 2024 by NIURKA GUERRERO RT Amended: Links added.
[2019-02-28] VITALS (40 sets, daily range): BP systolic 101–146; BP diastolic 47–98
--- NOTE | 2019-02-28 | NUR ---
REMAINS STABLE,AWAKE,ALERT.NOT IN ANY DISTRESS. COMFORT CARE DONE.
[2019-02-28] MEDS: METOCLOPRAMIDE HCL 10 MG/2 ML VIAL IV SCH ×4 (00:04→18:26)
[2019-02-28] MEDS: BLOOD SUGAR DIAGNOSTIC 1 EACH STRIP IN SCH ×6 (01:20→21:04)
[2019-02-28] MEDS: IPRATROPIUM NEB FS 0.5 MG/2.5 ML AMPUL.NEB NEB SCH ×6 (03:16→23:22)
--- NOTE | 2019-02-28 04:00 | NUR ---
REMAINS STABLE,NOT IN NAY DISTRESS.AM AGUILAR/BATH DONE,ALL DRESSINGS CHANGED.AWAKE,ALERT.
[2019-02-28 04:12] LABS: BASOPHILS # (AUTO) 0.1 /CMM (0.0-0.2); BASOPHILS % (AUTO) 0.5 % (0.0-2.0); EOSINOPHILS % (AUTO) 3.4 % (0.0-6.0); HEMATOCRIT 27 % (33-45); HEMOGLOBIN 8.9 g/dL (11.5-14.8); LYMPHOCYTES % (AUTO) 6.1 % (20.0-44.0); MEAN CORPUSCULAR HGB CONC 33 g/dl (31.0-36.0); MEAN CORPUSCULAR VOLUME 88 fL (82-100); MONOCYTES # (AUTO) 1.4 /CMM (0.1-1.30); MONOCYTES % (AUTO) 8.9 % (2.0-12.0); NEUTROPHILS # (AUTO) 13.1 /CMM (1.8-8.9); NEUTROPHILS % (AUTO) 81.1 % (43.0-81.0); WHITE BLOOD COUNT (AUTO) 16.2 K/uL (4.3-11.0)
[2019-02-28 04:28] LABS: CARBON DIOXIDE 27 mmol/L (21-32); CHLORIDE 109 mmol/L (98-107); CREATININE 1.8 mg/dL (0.6-1.3); GLUCOSE 99 mg/dL (74-106); MAGNESIUM 1.6 mg/dL (1.8-2.4); PHOSPHORUS 3.5 mg/dL (2.5-4.9); POTASSIUM 3.5 mmol/L (3.5-5.1); SODIUM SERUM 143 mmol/L (136-145); UREA NITROGEN, BLOOD 33 mg/dL (7-18)
[2019-02-28] MEDS: IV D5/ 0.9% NACL 1,000 ML IV PRN (04:31)
[2019-02-28 04:43] LABS: PLATELET COUNT (AUTO) 39 /CMM (150-450)
[2019-02-28] MEDS: TIGECYCLINE 50 MG in IV D5W 50 ML IV SCH ×2 (04:56→16:47)
[2019-02-28 06:12] LABS: EOSINOPHILS % (MANUAL) 5 % (0-4); LYMPHOCYTES % (MANUAL) 5 % (16-48); MONOCYTES % (MANUAL) 12 % (0-11.0); NEUTROPHILS % (MANUAL) 78 (42-76)
--- NOTE | 2019-02-28 07:00 | NUR ---
REPORT GIVEN TO RUTHY VELEZ.PATIENT REMAINS STABLE.POSSIBLE TRANSFER TO [facility] TODAY FOR [facility] ,FOR ESOPHAGEAL RE EVALUATION AND CONSIDERATION FOR RE PLEURAL RE EXPLORATION.
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
[2019-02-28] MEDS: ACETYLCYSTEINE 10% SOLN 400 MG/4 ML VIAL NEB SCH ×3 (07:33→23:22)
--- NOTE | 2019-02-28 07:41 | NUR ---
RT PATIENT REC'D INTUBATED ON [facility] VENT WITH ORDERED SETTINGS IN CRITICAL CONDITION. VENT ALARMS CHECKED + AUDIBLE. CUFF PRESSURE CHECKED BACTERIOLOGIST MEDICAL. B/S DIM. SUCTIONED AIRWAY WITH SMALL AMT BORRERO SEMITHICK SECRETIONS. AMBU BAG AT [facility]. Addendum: 02/28/19 at 1753 by ABIMAEL TAPIA RT Amended: Links added.
[2019-02-28] MEDS: Z GUARD REMEDY 2 OZ OINT TP SCH (08:17)
[2019-02-28] MEDS: NYSTATIN TOP POWDER 15 GM BOTTLE TP SCH (08:17)
[2019-02-28] MEDS: HYDROGEL DRESSING 90 GM TUBE TP SCH (08:18)
[2019-02-28] MEDS: PANTOPRAZOLE 40 MG VIAL IV SCH ×2 (08:18→16:18)
[2019-02-28] MEDS: MORPHINE SULFATE INJ 2 MG/ML DISP.SYRIN IV PRN (10:04)
[2019-02-28] MEDS: MICAFUNGIN SODIUM 100 MG in IV NS 0.9% 100 ML IV SCH (13:01)
--- NOTE | 2019-02-28 14:10 | NUR ---
SPOKE WITH CLEANING SUPERVISOR AND THEY STATE HAVE NOT HEARD FROM THE PHYSICIAN AT [facility] AND UNKNOWN TIME OR DAY OF TRANSFER. DR ELLIS AND DR RALPH NOTIFIED.
[2019-02-28] MEDS: Magnesium 1GM/D5W 100ML PREMIX 100 ML IV SCH ×2 (14:22→16:17)
[2019-02-28] MEDS ORDERED: TPN/PPN PER PHARMACY XX PRN (16:30)
[2019-02-28] MEDS ORDERED: Calcium Gluconate 1GM/10ML 4.65 MEQ in IV NS 0.9% 50 ML IV ONE (16:30)
[2019-02-28] MEDS ORDERED: FEE TPN 1 MIN EA MC ONE (16:38)
[2019-02-28] MEDS ORDERED: TPN BAG #1 IV PRN ×7 (17:00)
[2019-02-28] MEDS ORDERED: TPN BAG #1 IV SCH ×7 (17:00)
[2019-02-28] MEDS: MEROPENEM 500 MG in IV NS 0.9% 50 ML IV SCH (18:20)
[2019-02-28] MEDS: IV NS 0.9% 250 ML IV PRN (18:28)
--- NOTE | 2019-02-28 18:41 | NUR ---
PER MD ORDER STOP DEXTROSE IVF ONCE TPN STARTED. PER CM PATIENT IS TO BE TRANSFERRED TO [facility] TOMORROW 03/01
--- NOTE | 2019-02-28 18:52 | NUR ---
"EM" A FRIEND DROPPED OFF PAPERWORK AND I PLACED IN THE SAFE IN THE STATION. [employer] DUAL HOSE CEMENTER NOTIFIED SON SANDEEP TO SUPERVISOR BUILDING MAINTENANCE TOMORROW AM. NOTE LEFT ON TOP OF CHART WELL.
--- NOTE | 2019-02-28 18:53 | NUR ---
ALL DUE MEDS GIVEN AND ALL NEEDS MET. PATIENT RESTING COMFORTABLY. LEFT CHEST TUBE WITHOUT LEAKS AND DRESSING IN PLACE WITH 375 M OUTPUT TODAY. RIGHT PIGTAIL IN PLACE, CLEAN AND INTACT WITH 50ML PURULENT DRAINAGE. TOLERATING VENT WITHOUT SOB, DIFFICULTY BREATHING. TPN PER MD ORDER. IV SITE C/D/I/P AND HD CATH C/D/I. FLORES TO GRAVITY. SAFETY, ASPIRATION, AND SKIN CARE PRECAUTIONS IN PLACE AND MONITORED THROUGHOUT DAY.
--- NOTE | 2019-02-28 19:51 | NUR ---
PT RECEIVED ORALLY INTUBATED WITH 7.5 ETT SECURED@ 22 CM ON MECHANICAL VENT W/ NOTED SETTINGS PER MD ORDER. PT TOLERATING VENT SETTINGS. PT IS AWAKE . VENT ALARMS CHECKED, VENT PLUGGED INTO RED OUTLET, AMBU BAG AT BEDSIDE. PT SUCTIONED AND LAVAGED PRN. BREATHING TX GIVEN PER MD ORDER, NO ADVERSE REACTION NOTED. ETT PATENT AND SECURED. JIG MILL OPERATOR CUFF PRESSURE NOTED. NO RESPIRATORY DISTRESS NOTED AT THIS TIME . WILL CONTINUE TO MONITOR THE PT.
--- NOTE | 2019-02-28 20:00 | NUR ---
Received patient awake and follows simple commands.Orally intubated to vent.Tolerating vent settings well SPO2 100%.No respiratory distress noted.With Left CT to 20 cm suction draining serous fluid.No air leaks noted.Right chest tube to uresil drainage with purulent output.Both sites dressing C/D/I.VS stable. SR.NPO status with TPN infusing via right CECILIO PICC Line,site intact.FC to gravity.Patient turned and repositioned.
[2019-03-01] VITALS (32 sets, daily range): BP systolic 69–146; BP diastolic 41–87
[2019-03-01] MEDS: METOCLOPRAMIDE HCL 10 MG/2 ML VIAL IV SCH ×3 (00:03→12:16)
[2019-03-01] MEDS: BLOOD SUGAR DIAGNOSTIC 1 EACH STRIP IN SCH ×4 (01:15→12:16)
[2019-03-01] MEDS: IPRATROPIUM NEB FS 0.5 MG/2.5 ML AMPUL.NEB NEB SCH ×3 (03:20→12:04)
[2019-03-01 04:50] LABS: BASOPHILS % (AUTO) 0.7 % (0.0-2.0); EOSINOPHILS % (AUTO) 4.6 % (0.0-6.0); HEMATOCRIT 27 % (33-45); HEMOGLOBIN 8.8 g/dL (11.5-14.8); LYMPHOCYTES % (AUTO) 6.2 % (20.0-44.0); MEAN CORPUSCULAR HGB CONC 33 g/dl (31.0-36.0); MEAN CORPUSCULAR VOLUME 88 fL (82-100); MONOCYTES % (AUTO) 7.4 % (2.0-12.0); NEUTROPHILS % (AUTO) 81.1 % (43.0-81.0); PLATELET COUNT (AUTO) 85 /CMM (150-450); RED BLOOD CELL COUNT(AUTO) 3.07 MIL/uL (4.0-5.2); WHITE BLOOD COUNT (AUTO) 15.1 K/uL (4.3-11.0)
[2019-03-01 04:51] LABS: BASOPHILS # (AUTO) 0.1 /CMM (0.0-0.2); LYMPHOCYTES # (AUTO) 0.9 /CMM (0.8-4.8); MONOCYTES # (AUTO) 1.1 /CMM (0.1-1.30); NEUTROPHILS # (AUTO) 12.2 /CMM (1.8-8.9)
[2019-03-01] MEDS: TIGECYCLINE 50 MG in IV D5W 50 ML IV SCH (05:07)
--- NOTE | 2019-03-01 05:10 | NUR ---
Patient in no acute distress.HD started by JOHN Chavez RN.
[2019-03-01 05:16] LABS: CALCIUM, SERUM 7.3 mg/dL (8.5-10.1); CARBON DIOXIDE 29 mmol/L (21-32); CHLORIDE 110 mmol/L (98-107); CREATININE 2.1 mg/dL (0.6-1.3); GLUCOSE 115 mg/dL (74-106); MAGNESIUM 1.7 mg/dL (1.8-2.4); PHOSPHORUS 3.6 mg/dL (2.5-4.9); POTASSIUM 3.5 mmol/L (3.5-5.1); SODIUM SERUM 144 mmol/L (136-145); UREA NITROGEN, BLOOD 37 mg/dL (7-18)
[2019-03-01 05:41] LABS: TRIGLYCERIDES 101 mg/dL (30-150)
[2019-03-01 06:21] LABS: EOSINOPHILS % (MANUAL) 3 % (0-4); LYMPHOCYTES % (MANUAL) 3 % (16-48); MONOCYTES % (MANUAL) 4 % (0-11.0); NEUTROPHILS % (MANUAL) 90 (42-76)
--- NOTE | 2019-03-01 07:05 | NUR ---
RODEO RIDER OPENING NOTES RECEIVED PT LYING ON BED,ALERT/ORIENTED X1 CAN OPEN EYES WHILE VERBALIZING.ON TELE HR IS 92 WITH SR.NOTED WITH E TUBE,7.5/22 WITH VENT SETTINGS.NO SOB AND ACUTE DISTRESS NOTED.CECILIO PICC LINE NOTED,3PORT.FLUSHED WELL.ON TPN @40ML/HR ,TOLERATING WELL.HD CATH IS ON LEFT SUBCLAVIAN,HD IS ONGOING.RIGHT PIGTAIL AND LEFT CHEST TUBE PRESENT.FC IS IN PLACE WITH CLEAR YELLOW URINE.SAFETY IS MAINTAINED AT ALL TIMES.BED IS IN LOW POSITION AND LOCKED.CALL LIGHT IS WITHIN REACH.WILL CONTINUE TO MONITOR THE PT CLOSELY.
[2019-03-01] MEDS ORDERED: ALBUMIN 25% 25 GM in PREMIX 1 EA IV PRN (07:30)
--- NOTE | 2019-03-01 07:42 | NUR ---
Patient resting in no acute distress HD in progress.Patient for transfer to [facility] today.All wound pictures taken 02/28/2019.Report given to ROSIE BENJAMIN for continuity of care.
--- NOTE | 2019-03-01 08:00 | NUR ---
CONSTRUCTION ENGINEER NOTES PT HAS DONE HD,200 CC OUT.NO COMPLICATIONS NOTED.
[2019-03-01] MEDS: ACETYLCYSTEINE 10% SOLN 400 MG/4 ML VIAL NEB SCH (08:31)
[2019-03-01] MEDS: PANTOPRAZOLE 40 MG VIAL IV SCH (09:09)
[2019-03-01] MEDS: NYSTATIN TOP POWDER 15 GM BOTTLE TP SCH (09:10)
[2019-03-01] MEDS: HYDROGEL DRESSING 90 GM TUBE TP SCH (09:10)
[2019-03-01] MEDS: Z GUARD REMEDY 2 OZ OINT TP SCH (09:11)
[2019-03-01] MEDS: MICAFUNGIN SODIUM 100 MG in IV NS 0.9% 100 ML IV SCH (12:17)
--- NOTE | 2019-03-01 13:00 | NUR ---
DESIGN STUDIO CONSULTANT NOTES REPORT GIVEN TO MS SIMMONS,RN IN ICU IN [facility].ROOM IS [phone],PHONE [phone].
--- NOTE | 2019-03-01 15:15 | NUR ---
CENTRIFUGAL SPINNERMANAGER CATEGORY NOTES PT IS DISCHARGE TO [facility].ALERT/ORIENTED X1,CAN OPEN EYES.PT IS CLEAN AND DRY AND ALL THE WOUND DRESSINGS HAS DONE .DISCHARGE WITH LEFT SIDE CHEST TUBE AND RIGHT SIDE PIGTAIL TUBE AND FC.RIGHT UPPER ARM 3 LUMEN PICC LINE PRESENT WITH TPN RUNNING,RN FROM TRANSPORTATION IS AT BEDSIDE.VITAL SIGNS CHECKED AND RECORDED.SKIN ASSESSMENT HAS DONE.SAFE DOCUMENT GIVEN TO TRANSPORTATION TEAM PER FAMILY REQUEST.E TUBE IS IN PLACE WITH WITH VENT SETTINGS.MRSA SWAB DONE ON RIGHT NARES PRIOR DISCHARGE.NO SOB AND ACUTE DISTRESS NOTED.NO COMPLICATIONS NOTED.SON MADE AWARE ABOUT THE TRANSFORATION.
== END 2019-03-01 15:21 | disposition short-term general hospital (02) | DRG 870 ==
LOC: ER 22:56 → ICU 02-06 00:25
PROVIDERS: ADMIT Nurse Practitioner Acute Care; ATTEND Internal Medicine
PROC: 5A1945Z Respiratory Ventilation, 24-96 Consecutive Hours (ICD-10-PCS; 2019-02-06)
PROC: 02HV33Z Insertion of Infusion Device into Superior Vena Cava, Percutaneous Approach (ICD-10-PCS; 2019-02-06)
PROC: B548ZZA Ultrasonography of Superior Vena Cava, Guidance (ICD-10-PCS; 2019-02-06)
PROC: 0W993ZZ Drainage of Right Pleural Cavity, Percutaneous Approach (ICD-10-PCS; 2019-02-06)
PROC: 5A09457 Assistance with Respiratory Ventilation, 24-96 Consecutive Hours, Continuous Positive Airway Pressure (ICD-10-PCS; 2019-02-07)
PROC: 5A1955Z Respiratory Ventilation, Greater than 96 Consecutive Hours (ICD-10-PCS; principal; 2019-02-09)
PROC: 0BH17EZ Insertion of Endotracheal Airway into Trachea, Via Natural or Artificial Opening (ICD-10-PCS; 2019-02-09)
PROC: 05H633Z Insertion of Infusion Device into Left Subclavian Vein, Percutaneous Approach (ICD-10-PCS; 2019-02-19)
PROC: B547ZZA Ultrasonography of Left Subclavian Vein, Guidance (ICD-10-PCS; 2019-02-19)
PROC: 30233N1 Transfusion of Nonautologous Red Blood Cells into Peripheral Vein, Percutaneous Approach (ICD-10-PCS; 2019-02-26)
DX: A41.9 Sepsis, unspecified organism (principal); J93.0 Spontaneous tension pneumothorax; G93.41 Metabolic encephalopathy; R65.21 Severe sepsis with septic shock; E43 Unspecified severe protein-calorie malnutrition; I46.9 Cardiac arrest, cause unspecified; N17.0 Acute kidney failure with tubular necrosis; I50.33 Acute on chronic diastolic (congestive) heart failure; J96.22 Acute and chronic respiratory failure with hypercapnia; J96.21 Acute and chronic respiratory failure with hypoxia; J69.0 Pneumonitis due to inhalation of food and vomit; J44.0 Chronic obstructive pulmonary disease with (acute) lower respiratory infection; J44.1 Chronic obstructive pulmonary disease with (acute) exacerbation; L02.213 Cutaneous abscess of chest wall; Z99.11 Dependence on respirator [ventilator] status; D68.59 Other primary thrombophilia; B49 Unspecified mycosis; E87.2 Acidosis; I47.1 Supraventricular tachycardia; J98.11 Atelectasis; N39.0 Urinary tract infection, site not specified; I48.92 Unspecified atrial flutter; J90 Pleural effusion, not elsewhere classified; E83.42 Hypomagnesemia; Z99.2 Dependence on renal dialysis; Z96.612 Presence of left artificial shoulder joint; Z90.710 Acquired absence of both cervix and uterus; Z88.2 Allergy status to sulfonamides; Z88.0 Allergy status to penicillin; Z87.891 Personal history of nicotine dependence; Z87.01 Personal history of pneumonia (recurrent); Z79.899 Other long term (current) drug therapy; Z79.52 Long term (current) use of systemic steroids; Z88.8 Allergy status to other drugs, medicaments and biological substances; Z91.041 Radiographic dye allergy status; Z79.51 Long term (current) use of inhaled steroids; E83.51 Hypocalcemia; R73.9 Hyperglycemia, unspecified; E87.6 Hypokalemia; I11.0 Hypertensive heart disease with heart failure; I25.10 Atherosclerotic heart disease of native coronary artery without angina pectoris; K57.30 Diverticulosis of large intestine without perforation or abscess without bleeding; M85.80 Other specified disorders of bone density and structure, unspecified site; I27.20 Pulmonary hypertension, unspecified; G83.9 Paralytic syndrome, unspecified; L30.4 Erythema intertrigo; I48.0 Paroxysmal atrial fibrillation; M19.90 Unspecified osteoarthritis, unspecified site; Y95 Nosocomial condition; S41.101A Unspecified open wound of right upper arm, initial encounter; X58.XXXA Exposure to other specified factors, initial encounter; Y92.9 Unspecified place or not applicable; D63.8 Anemia in other chronic diseases classified elsewhere; D69.6 Thrombocytopenia, unspecified
CPT/HCPCS: 20501; 31720; 36415; 36569; 36600; 70450-TC; 71045-TC; 71250-TC; 75989; 75989-TC; 76942-TC; 80048-TC; 80053-TC; 80061-TC; 80076-TC; 80202-TC; 81000-TC; 82040-TC; 82272-TC; 82533; 82570-TC; 82728-TC; 82803-TC; 82962-TC; 83540-TC; 83605-TC; 83735-TC; 83880; 84100-TC; 84155-TC; 84300-TC; 84439-TC; 84443-TC; 84478-TC; 84484-TC; 85025-TC; 85027-TC; 85396; 85610-TC; 85652-TC; 85730-TC; 86704; 86705; 86706; 86803; 86850-TC; 86921-TC; 87040-TC; 87070-TC; 87075-TC; 87081-TC; 87102-TC; 87116; 87186-TC; 87206; 87340; 88305-TC; 88312-TC; 89051-TC; 90935-TC; 92950-TC; 93307-TC; 93930-TC; 93971-TC; 94002-TC; 94003-TC; 94640-TC; 94760-TC; 94799-TC; 99082-TC; A4216; A6248; A6253; A6402; A6403; C1750; C1751; C9113; G0378; J0171; J0282; J0330; J0461; J0610; J0692; J0696; J0885; J1160; J1265; J1650; J1720; J1815; J1940; J1956; J2001; J2020; J2185; J2248; J2250; J2270; J2310; J2370; J2543; J2765; J2930; J3010; J3243; J3370; J3475; J3480; J3490; J7030; J7040; J7042; J7050; J7060; P9016-BL; P9047; Q9967